=== PATIENT | male | born 1955 | race Caucasian/White ===

== ENCOUNTER 2017-11-21 06:25 | Inpatient (IN) | payer OTHER ==
[~2017-11-21] VITALS: Ht 188 cm; Wt 94.1 kg
--- NOTE | 2017-11-21 07:29 | ED GENERAL ADULT ---
History of Present Illness General Chief Complaint: Dyspnea (COPD, CHF, Other) Stated Complaint: DIFF BREATHING Source: patient Exam Limitations: no limitations Vital Signs & Intake/Output Vital Signs & Intake/Output Vital Signs Date Time Temp Pulse Resp B/P B/P Pulse O2 O2 Flow FiO2 Mean Ox Delivery Rate 11/21 0830 111 18 146/76 100 11/21 0640 99 Room Air Room Air 11/21 0538 98.2 127 28 150/74 99 Room Air Room Air Allergies Coded Allergies: No Known Allergies (11/21/17) Triage Note: 62YO MALE TO EWING A VIA AMB FROM HOME W/CO DIFF BREATHING X 2 WEEKS THAT'S WORSE THIS AM. NO WHEEZING PRESENT, RA SAT =99. STATES HE "DID NOT TAKE ANY MEDS FOR IT BECAUSE HE HAS HX KIDNEY FAILURE" Triage Nurses Notes Reviewed? yes Onset: Abrupt Duration: day(s): Timing: recent history HPI: 11/21/17 7:35 AM 62-year-old male presents to the emergency department complaining of difficulty breathing. He says he's had shortness of breath over the past several days. He says he gets winded now when he goes up the stairs. He has a past medical history of renal failure, 4 years ago that resolved. He denies any chest pain fever or cough. Past History Travel History Traveled to [place] past 21 day No Medical History Any Pertinent Medical History? 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 No Review of Systems Review of Systems Constitutional: Reports: no symptoms. Denies: fever. EENTM: Reports: no symptoms. Respiratory: Reports: short of breath. Cardiovascular: Denies: chest pain. GI: Denies: abdominal pain. Genitourinary: Reports: no symptoms. Musculoskeletal: Reports: no symptoms. Skin: Reports: no symptoms. Neurological/Psychological: Reports: no symptoms. Hematologic/Endocrine: Reports: no symptoms. Immunologic/Allergic: Reports: no symptoms. Physical Exam Physical Exam General Appearance: alert, awake, anxious, mild distress Head: atraumatic, normal appearance Eyes: Bilateral: normal appearance, PERRL, EOMI. Ears, Nose, Throat: normal pharynx, normal ENT inspection Neck: normal inspection, supple Respiratory: TACHYCARDIA Cardiovascular: regular rate/rhythm Peripheral Pulses: 4+ radial (R), 4+ radial (L) Gastrointestinal: soft, non-tender Back: normal range of motion Extremities: no edema Neurologic/Psych: no motor/sensory deficits, awake, alert, oriented x 3 Skin: intact, normal color, warm/dry Core Measures ACS in differential dx? No CVA/TIA Diagnosis: No Sepsis Present: No Sepsis Focused Exam Completed? No Progress Differential Diagnoses I considered the following diagnoses in my evaluation of the patient: [Pneumonia , pulmonary embolism, renal failure] Plan of Care: Orders Procedure Date/time Status Heart Healthy Diet 11/21 L Active US-RENAL/KIDNEY 11/21 954 Active Murillo, Insertion/Removal/Asses 11/21 954 Active CULTURE,URINE 11/21 954 Active ED Holding Orders 11/21 952 Active Admit to inpatient 11/21 952 Active Vital Signs 11/21 0953 Active TROPONIN LEVEL 11/21 733 Complete D-DIMER 11/21 733 Complete COMPREHENSIVE METABOLIC PANEL 11/21 733 Complete CBC WITHOUT DIFFERENTIAL 11/21 733 Complete B-TYPE NATRIURETIC PEP (BNP) 11/21 0634 Complete EKG 11/21 733 Active Current Medications Sig/James Start time Last Medication Dose Stop Time Status Admin Sodium Chloride 1,000 ML BOLUS ONE 11/21 1000 AC (Normal Saline 0.9%) 11/21 1059 Laboratory Tests 11/21/17 0819: Anion Gap 28.56404 H, Estimated GFR 2 L, BUN/Creatinine Ratio 9.6, Glucose 123 H, Calcium 5.6 *L, Total Bilirubin 0.4, AST 15 L, ALT 17 L, Alkaline Phosphatase 81, Troponin I 0.01, Lmc-B-Mnclleliqdj Pept 97720 H, Total Protein 7.4, Albumin 4.2, Globulin 3.2, Albumin/Globulin Ratio 1.3, D-Dimer High Sensitivty 518 H, CBC w Diff NO MAN DIFF REQ, RBC 2.71 L, MCV 88.5, MCH 30.0, MCHC 33.9, RDW 14.9 H, MPV 8.9, Gran % 81.9 H, Lymphocytes % 7.3 L, Monocytes % 9.5 H, Eosinophils % 0.1, Basophils % 1.2, Absolute Granulocytes 6.5, Absolute Lymphocytes 0.6 L, Absolute Monocytes 0.7 H, Absolute Eosinophils 0, Absolute Basophils 0.1 Microbiology 11/21 954 URINE ROUT: Urine Culture - ORD Initial ED EKG: nonspecific ST T wave chg (SINUS TACHYCARDIA) Departure Departure Disposition: STILL A PATIENT Condition: Stable Clinical Impression Primary Impression: CINDI (acute kidney injury) Referrals: Patient Has No Primary Care Dr (PCP/Family) Departure Forms: Customer Survey General Discharge Information Admission Note Documentation of Exam: Documentation of any treatments & extenuating circumstances including Concerns Regarding Discharge (functional status, medication knowledge or non-compliance, living conditions, etc.) that warrant an admission rather than observation: [The patient needs admission for IV fluids, Murillo catheter, strict I&O, serial electrolytes, nephrology consultation possible dialysis. I paged nephrology.] Critical Care Note Critical Care Note Critical Care Time: non-applicable
--- NOTE | 2017-11-21 08:08 | RADIOLOGY REPORT ---
EXAMINATION: XR CHEST CLINICAL INFORMATION: Shortness of breath COMPARISON: None TECHNIQUE: 2 views of the chest were obtained. FINDINGS: Cardiomediastinal silhouette is within normal limits. Minor streaky infiltrate or atelectasis noted in the left base. Linear atelectatic changes right mid lung. Bony thorax is intact. Degenerative changes of the thoracic spine. IMPRESSION: Streaky atelectasis or less likely minor infiltrate noted in the left base. Linear atelectatic changes right mid to lower lung.
[2017-11-21 08:26] LABS: ABSOLUTE BASOPHIL COUNT 0.1 /CUMM (0.0-0.2); ABSOLUTE EOSINOPHIL COUNT 0 /CUMM (0.0-0.7); ABSOLUTE GRANULOCYTE CT 6.5 /CUMM (1.4-6.5); ABSOLUTE LYMPH COUNT 0.6 /CUMM (1.2-3.4); ABSOLUTE MONOCYTE COUNT 0.7 /CUMM (0.10-0.60); BASOPHIL % 1.2 % (0.0-2.0); EOSINOPHIL % 0.1 % (0-5); GRANULOCYTE % 81.9 % (42.2-75.2); MEAN CORPUSCULAR HGB CONC 33.9 G/DL (33.0-37.0); MEAN CORPUSCULAR VOLUME 88.5 FL (80.0-94.0); MEAN PLATELET VOLUME 8.9 FL (7.4-10.4); PLATELET COUNT 155 /CUMM (130-400); RBC DISTRIBUTION WIDTH 14.9 % (11.5-14.5); RED BLOOD CELL CT 2.71 /CUMM (4.70-6.10); WHITE BLOOD CELL COUNT 7.9 /CUMM (4.8-10.8)
[2017-11-21 11:31] VITALS: BP 120/60
--- NOTE | 2017-11-21 13:25 | History & Physical ---
AlvinMarco Antonio 11/21/17 1322: General Information and HPI MD Statement: I have seen and personally examined UNIQUE YOUNGBLOOD and documented this H&P. The patient is a 62 year old M who presented with a patient stated chief complaint of shortness of breath. Source of Information: patient Exam Limitations: no limitations History of Present Illness: 62-year-old gentleman with history of? Prostate surgery 3 years ago, history of seizures 4 years ago-admitted at [facility] found to have acute renal failure,? Started on Depakote at the time, followed up with primary care physician who discontinued the Depakote after a few months of use, lost to follow-up after that, with no follow-up with primary care physician, post acute care registered nurse or any other doctors presents to [facility] ED on 11/21/2017 after having 2 week history of "head cold", and was noticed by his roommates to be "losing his color". He started expressing shortness of breath timing up the flight of stairs yesterday and could not sleep well overnight and this is what prompted him to call ambulance and come to the ED. he denies any fevers or chills. He denies any recent urinary or GI symptoms. He denies any recent travel. He denies any use of fjcp-gzj-jdrikdh Advil, Aleve or any other medications. He denies any use of herbal medications. He endorses to very low appetite over the last 2 weeks. He denies any weight loss or weight gain. He denies any IV drug abuse. He smokes 2-5 cigarettes a day, occasionally drinks alcohol and has used recreational drugs (not IVDU) in 1970s. He has no information about his previous counts, his previous hepatitis status or HIV status. He denies any chest pain, palpitations or any signs of anasarca. He denies any orthopnea or PND. He continues to ambulate by himself and has not required any walker or cane. He denies any previous history of clots in lungs or legs. He is unsure of his family history, but does admit that her mother of lung cancer 13 years ago and his sister has diabetes. 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 Additionally he comes of dull achy pain in his lower back, which comes and goes. No radiation to the pain, no incontinence. No recent seizure-like activity. In the ED, patient had lab work done which revealed a BUN/creatinine of 202/22. He was also found to be anemic. 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 Exam & Diagnostic Data Last 24 Hrs of Vital Signs/I&O Vital Signs Date Time Temp Pulse Resp B/P B/P Pulse O2 O2 Flow FiO2 Mean Ox Delivery Rate 11/21 1131 97.5 109 24 120/60 100 /07 0930 111 18 146/76 100 /07 0640 99 Room Air Room Air 11/21 0638 98.2 127 28 150/74 99 Room Air Room Air Intake & Output 11/21 1600 / 0800 06 0000 Intake Total 1240 Output Total Balance 1240 Intake, IV 1000 Intake, Oral 240 Patient 189 lb Weight Physical Exam General Appearance Alert, Oriented X3, Cooperative, No Acute Distress Sepsis Skin Exam (color): Normal for Ethnicity, Cyanotic HEENT Atraumatic, PERRLA, EOMI Neck Supple, No JVD Cardiovascular Regular Rate, Normal S1, Normal S2 Lungs Clear to Auscultation, Normal Air Movement Abdomen Normal Bowel Sounds, Soft, No Tenderness Neurological Normal Gait, Normal Speech, Strength at 5/5 X4 Ext Extremities No Clubbing, No Cyanosis, No Edema Last 24 Hrs of Labs/Jerrod: Laboratory Tests 11/21/17 1250: Sodium Cancelled, Potassium Cancelled, Chloride Cancelled, Carbon Dioxide Cancelled, Anion Gap Cancelled, BUN Cancelled, Creatinine Cancelled, BUN/ Creatinine Ratio Cancelled 06/07/18 0819: Anion Gap 28.67580 H, Estimated GFR 2 L, BUN/Creatinine Ratio 9.6, Glucose 123 H, Calcium 5.6 *L, Total Bilirubin 0.4, AST 15 L, ALT 17 L, Alkaline Phosphatase 81, Troponin I 0.01, Bpl-P-Uxxnwvwzjbd Pept 91346 H, Total Protein 7.4, Albumin 4.2, Globulin 3.2, Albumin/Globulin Ratio 1.3, D-Dimer High Sensitivty 518 H, CBC w Diff NO MAN DIFF REQ, RBC 2.71 L, MCV 88.5, MCH 30.0, MCHC 33.9, RDW 14.9 H, MPV 8.9, Gran % 81.9 H, Lymphocytes % 7.3 L, Monocytes % 9.5 H, Eosinophils % 0.1, Basophils % 1.2, Absolute Granulocytes 6.5, Absolute Lymphocytes 0.6 L, Absolute Monocytes 0.7 H, Absolute Eosinophils 0, Absolute Basophils 0.1 Microbiology 11/21 0955 URINE ROUT: Urine Culture - ORD Diagnostic Data EKG Results Sinus Tachy. CXR Results IMPRESSION: Streaky atelectasis or less likely minor infiltrate noted in the left base. Linear atelectatic changes right mid to lower lung. Assessment/Plan Assessment: 62-year-old gentleman with 2 week history of generalized fatigue, upper respiratory symptoms, "looking pale" and an episode of shortness of breath last night that prompted him to come to the ED presents to the ED with creatinine of 22 and severe anion gap metabolic acidosis with component of severe organic acidosis in the setting of severe renal failure. History of obstructive uropathy requiring "prostate" surgery in 2013 with subsequent placement of Hall catheter for 6 months, lost to follow-up after that. Has failed to maintain follow-ups with the post acute care registered nurse Dr. Amado of [facility], never been on dialysis. 1. Anion gap metabolic acidosis. Likely secondary from severe renal failure. Appreciate nephrology recommendations. Will start patient on bicarbonate drip. 2. Severe hypocalcemia. PTH intact checked, appropriately elevated. This degree of hypocalcemia is perhaps secondary to hyperphosphatemia as a result result of renal failure or excess tissue breakdown because of rhabdomyolysis or tumor lysis. Please check CK, uric acid. Again, may just falsely be elevated in this severe renal failure. Start phosphate binders. 3. Shortness of breath. Low risk for PE by Wells. His symptoms are likely secondary to severe anemia, likely in the setting of acute kidney injury on CKD. His low back pain in the setting of anemia and kidney dysfunction, worries me about the possibility of multiple myeloma, something to consider if his kidney dysfunction does not improve. 4. Metabolic derangements. All this is likely secondary to severe renal failure as mentioned above. But his derangements to go in line with TLS- hyperphosphatemia, hypocalcemia, hyperkalemia. May check uric acid. Low lactate argues against TLS. Another scenario that is a possibility, albeit a slight one, is acute uric acid nephropathy due to hyperuricosuria can be cause of acute kidney failure. At this point, obstructive uropathy is a major concern and urology has been consulted to do a cystoscopy-Hall. If kidney function does not improve, patient may need a Cosme/proline or some access for dialysis. At that point, other causes of nephrotic/nephritic syndrome can be worked up for. Obviously, avoid any nephrotoxic agents. Transfer to ICU. Please follow-up on renal ultrasound as well as CAT scan. Please follow-up on postop urology note. This patient needs to be carefully monitored for postobstructive diuresis. Would recommend checking ICU bundle every 6 hours for next 24 hours. Full code. Alps for DVT prophylaxis. N.p.o. for now, then renal dialysis diet. As Ranked By This Provider Problem List: 1. CINDI (acute kidney injury) Core Measures/Misc (03/03) Acute Coronary Syndrome ACS Diagnosis: No Congestive Heart Failure Congestive Heart Failure Diagnosis No Cerebrovascular Accident CVA/TIA Diagnosis: No VTE (View Protocol) VTE Risk Factors Acute Medical Illness No Mechanical VTE Prophylaxis d/t N/A MechProphylax Ordered No VTE Pharm Prophylaxis d/t Surgical Contraindication Sepsis (View protocol) Sepsis Present: No If YES complete Sepsis Event Note If YES complete Sepsis Event Note Julio Collado MD 11/21/17 6413: Core Measures/Misc (03/03) Sepsis (View protocol) If YES complete Sepsis Event Note If YES complete Sepsis Event Note Attending MD Review Statement Attending Statement Attending MD Statement: examined this patient, discuss w/resident/PA/TELECOM MANAGER, agreed w/resident/PA/TELECOM MANAGER, reviewed EMR data (avail), reviewed images, amended to note Attending Assessment/Plan: The patient is a 62 yo male with a h/o seizure disorder (?formerly on Depakote), h/o "prostate surgery" approximately 4 years ago ([facility]) who described having an indwelling hall for 6 months and had CINDI and required dialysis x 1 who presented in the ED with c/o dyspnea, weakness, [place] and was found to have a Cr of 22. He denied edema, fever and stated he was passing urine well. His bicarbonate was < 5. He was sent to the medical floor and subsequent bladder scan showed > 400 cc residual and he voided dark tea colored urine. He was seen by Nephrology (Dr. Alvarez) on the floor and recommended ICU monitoring as he will require bicarbonate drip and close monitoring of I/O's expecting post obstructive diuresis. He subsequently underwent a renal/blader US that showed severe right hydronephrosis and mild left hydronephrosis with presence of a right ureteral stent (patient was unaware ). Subsequent CT showed bilateral ureteral stents with moderate right and mild left hydronephrosis. Physical Exam: VS: T 97.5, P 127-109, R 28-24, BP 150/74-120/60, PO 99% RA HEENT: eyes- PERRLA, EOMI sandy- dry mucosa Neck: no JVD/bruits Chest: clear Cor: RR, sl tachy, nl S1, S2 w/o murm Abd: BS+, soft, NT, - masses Ext: no edema Neuro: alert & oriented (poor historian), non-focal exam Labs/Tests- as above. Impression/Plan: #Anion Gap Metabolic Acidosis- bicarb < 5, most c/w acute on chronic severe renal failure. Plan: As above, will transfer to ICU based on Nephrology consult. Add bicarb to IV fluids as per Nephro note and follow lytes closely. #Renal Failure- ?acute on chronic. No recent bloodwork. Had h/o obstructive uropathy and prior admission to [facility] in [place], [place]. Symptoms are rather acute. The patient has no medical insurance and thus had had no recent follow-up. As noted- bilateral ureteral stents are present which may have been in for several years. Plan: As above, admit to ICU and IV fluids as per Nephrology consult with Dr. Alvarez. Follow lytes closely in ICU. Dr. Burch to place hall cath in OR (prior attempts failed). Consider placement of tunnel cath for possible dialysis tomorrow. Obtain records from [place]. #Obstructive Uropathy- h/o bilateral ureteral stents and h/o prostate surgery. May consider blockage of right sten. Plan: Urology Consult- Dr. Burch. To OR today for placement of hall. #Anemia- may be related to chronic renal failure. No evidence of bleeding, except mild blood in urine. Plan: Follow-up H/H - consider bone marrow stimulation factor. #Dyspnea- may be related to CKD/anemia. Plan: Will follow pulse ox. #Hypocalcemia- ?secondary to hyperphosphatemia. Plan: PTH checked (appropriate), Will check CK (?rhabdo). Replete. The patient will most likely need dialysis tomorrow.
--- NOTE | 2017-11-21 14:44 | Cons- Nephrology ---
General Information and HPI Consulting Request Date of Consult: 11/21/17 Requested By: John THOMAS,Dia Reason for Consult: renal failure, metabolic acidosis Source of Information: patient Exam Limitations: poor historian History of Present Illness: 62 yo male h/o BPH s/p green light laser surgery ~4 years ago with h/o obstructive uropathy in past (hospitalized at [facility] in [facility]) with CINDI requring HD x1, with requiring indwelling hall cath x6 months several years ago, who has not seen an MD in several years. He comes into the ER now with several weaks of fatigue, OATES (cxray only possible atectasis), nausea, intermittent vomiting, and found to have a creatininine of 22 mg/dl, with severe acidosis and bicarb of <5, witih anion gap >28. Was sent to the medical floor and a consult came into me for CINDI. I had RN check a bladder scan, which was > 400 cc. Hall cath attempted and not succesful as met with resistance. Pt subsequently voided once about 300 cc of dark blood tinged tea colored urine. Pt denies nsaids, iv contrast, and is on no medicatons. Denies ETOH or any ilicit drugs. Was not hypotensive in ER. Allergies/Medications Allergies: Coded Allergies: No Known Allergies (11/21/17) Current Medications: Current Medications Sig/James Start time Last Medication Dose Route Stop Time Status Admin Sodium Chloride 1,000 ML BOLUS ONE 11/21 1000 DC 11/21 IV 11/21 1059 1013 Review of Systems Review of Systems: gen: no fever/chills skin: No rash/pruritis renal: +poor taste, +loss of appetite cv: No CP. +OATES pulm: no cough/congestion abd: +nausea/vomiting. no diarrhea. no abd pain heme: no easy bleeding/clotting urol: +h/o BPH, h/o hall cath x6M in past. 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 Surgical History Surgical History: non-contributory Family History Relations & Conditions If Any: MOTHER Relation not specified for: FH: lung cancer Psychosocial History Smoking Status: Current Everyday Smoker ETOH Use: occasional use Illicit Drug Use: denies illicit drug use Functional Ability Ambulation: independent Exam & Diagnostic Data Vital Signs and I&O Vital Signs Date Time Temp Pulse Resp B/P B/P Pulse O2 O2 Flow FiO2 Mean Ox Delivery Rate 11/21 1131 97.5 109 24 120/60 100 11/21 0930 111 18 146/76 100 11/21 0640 99 Room Air Room Air 11/21 0638 98.2 127 28 150/74 99 Room Air Room Air Intake & Output 11/21 1600 11/21 0400 11/20 1600 11/20 0400 11/19 1600 11/19 0400 Intake Total 1240 Output Total Balance 1240 Intake, IV 1000 Intake, Oral 240 Patient 189 lb Weight Physical Exam: NAD A+O x3 neck: no JVD HEENT: oral mucosa is moist S1 S2 abd: soft NT some suprapubic distension bladder scan >400 cc CTAB no edema no asterixis, focal deficits skin: no rash Results Pertinent Lab Results: Laboratory Tests 11/21 11/21 1250 0819 Chemistry Sodium (137 - 145 mmol/L) Cancelled 141 Potassium (3.5 - 5.1 mmol/L) Cancelled 5.4 H Chloride (98 - 107 mmol/L) Cancelled 108 H Carbon Dioxide (22 - 30 mmol/L) Cancelled < 5 *L Anion Gap (5 - 16) Cancelled 28.79069 H BUN (9 - 20 mg/dL) Cancelled 212 *H Creatinine (0.7 - 1.2 mg/dL) Cancelled 22.0 *H Estimated GFR (>60 ml/min) 2 L BUN/Creatinine Ratio (7 - 25 %) Cancelled 9.6 Glucose (65 - 99 mg/dL) 123 H Calcium (8.4 - 10.2 mg/dL) 5.6 *L Phosphorus (2.5 - 4.5 mg/dL) Pending Magnesium (1.6 - 2.3 mg/dL) Pending Total Bilirubin (0.2 - 1.3 mg/dL) 0.4 AST (17 - 59 U/L) 15 L ALT (21 - 72 U/L) 17 L Alkaline Phosphatase (< 127 U/L) 81 Troponin I (<0.11 ng/ml) 0.01 Nps-J-Urdfeivabdi Pept (<125 pg/mL) 53318 H Total Protein (6.3 - 8.2 g/dL) 7.4 Albumin (3.5 - 5.0 g/dL) 4.2 Globulin (1.9 - 4.2 gm/dL) 3.2 Albumin/Globulin Ratio (1.1 - 2.2 %) 1.3 TSH (0.270 - 4.200 uIU/mL) Pending PTH Intact (18.4 - 80.1 pg/ML) Pending Coagulation D-Dimer High Sensitivty (0 - 243 ng/ml) 518 H Hematology CBC w Diff NO MAN DIFF REQ WBC (4.8 - 10.8 /CUMM) 7.9 RBC (4.70 - 6.10 /CUMM) 2.71 L Hgb (14.0 - 18.0 G/DL) 8.1 L Hct (42 - 52 %) 24.0 L MCV (80.0 - 94.0 FL) 88.5 MCH (27.0 - 31.0 PG) 30.0 MCHC (33.0 - 37.0 G/DL) 33.9 RDW (11.5 - 14.5 %) 14.9 H Plt Count (130 - 400 /CUMM) 155 MPV (7.4 - 10.4 FL) 8.9 Gran % (42.2 - 75.2 %) 81.9 H Lymphocytes % (20.5 - 51.1 %) 7.3 L Monocytes % (1.7 - 9.3 %) 9.5 H Eosinophils % (0 - 5 %) 0.1 Basophils % (0.0 - 2.0 %) 1.2 Absolute Granulocytes (1.4 - 6.5 /CUMM) 6.5 Absolute Lymphocytes (1.2 - 3.4 /CUMM) 0.6 L Absolute Monocytes (0.10 - 0.60 /CUMM) 0.7 H Absolute Eosinophils (0.0 - 0.7 /CUMM) 0 Absolute Basophils (0.0 - 0.2 /CUMM) 0.1 Assessment/Plan Assessment/Recommendations Assessment: Severe renal failure: Likely an element of acute and chronic renal failure. Cause of renal failure I suspect is due to obstructive uropathy. Renal US & abd CT currently underway. Stat consult placed to Urology, Dr Burch who promptly is arranging for urological intervention. If imaging is negative for hydronephrosis then urgent dialysis would be warranted for uremia with met acidosis, as in which case intrinsic renal disease may be culprit (ie ATN, chronic interstitial disease, etc) & further workup would be warranted. Metabolic acidosis (elevate anion gap): Suspect from renal failure. Start bicarbonate gtt with D5W + 150 meq/L at 125 cc/hr for now. BMM: hypocalcemia, hyperphos, secondary hyperpara. Will need calcium based phosphate binders (ie calcium acetate) soon. Avoid calcitriol for now given hyperphos. Recommendations: Stat urology consult placed start bicarb gtt at 125 cc/hr as above ICU transfer Hep B panel, PT/INR, Lactic acid, ABG f/up renal US & CT: If no hydro then would need dilip cath & HD. If hydro then urological intervention only for now serial chemistries monitored for post-obstructive diuresis NPO for now; once taking PO start calcium acetate 667 mg 4 tabs po TID with meals D/w ICU team, medical team, Urology, patient. Thank you for the consult Quinten Alvarez MD
[2017-11-21 14:46] LABS: PT 12.4 SEC (9.4-12.5); PTT 35 SEC (25-37)
--- NOTE | 2017-11-21 15:17 | Event Note ---
Event Note Event Note: Discussed with the Quinten Alvarez MD and according to him patient is having severe acidosis, bicarbonate less than 5, so he may need ICU transfer and possible dialysis in the future. I updated Dr. Courtney. We did tell the ultrasound together which showed there is right-sided hydronephrosis and bilateral renal stent. We did discuss with Dr. Burch who is going to do catheterization and possible stent removal. Advised - * Please continue patient on sodium bicarb drip 150 cc/h. * Keep patient n.p.o. for possible removal of the stent and Cosme catheter needed in the future. * After catheterization there is a possibility of postobstructive diuresis and patient may went into hyponatremia. If patient developed hyponatremia and then please start patient on D5W with 75 mEq of sodium bicarb -75 cc/h. * Please supplement IV fluid equivalent to the urine output. * If patient's her bicarb level become > 16 done start patient on D5 half normal saline. * Repeat CMP every 4 hourly. * Please report Dr. Alvarez about the next blood workup, for making decision regarding dialysis. * Strict intake output charting * Avoid DVT prophylaxis with heparin as patient is having hematuria, and he may need possible Cosme catheter tomorrow * Dr. Cruz will be on from tomorrow, please call him if dialysis is needed.
--- NOTE | 2017-11-21 15:28 | ULTRASOUND REPORT ---
EXAMINATION: US RETROPERITONEAL COMPLETE (RENAL) CLINICAL INFORMATION: Renal failure. COMPARISON: None TECHNIQUE: Real-time imaging of the kidneys and bladder. FINDINGS: RIGHT KIDNEY: 10.5 x 4.7 x 6.2 cm (SAG x AP x TRV). The kidney is normal in size, contour, and echogenicity. Renal cortical thickness is normal. No renal calculi or focal parenchymal lesions. There is moderate right-sided hydronephrosis. Stent is partially visualized.. LEFT KIDNEY: 10 x 4.7 x 4.9 cm (SAG x AP x TRV). Mild increased echogenicity. Renal cortical thickness is normal. Mild Left-sided hydronephrosis. Stent is partly visualized BLADDER: Incompletely distended. Stents. ADDITIONAL FINDINGS: Cholelithiasis. IMPRESSION: 1. Bilateral hydronephrosis, right greater than left. 2. Bilateral stents are partially visualized. Incidental note is made of gallstones.
--- NOTE | 2017-11-21 16:05 | CT SCAN REPORT ---
EXAMINATION: CT ABDOMEN AND PELVIS WITHOUT CONTRAST CLINICAL INFORMATION: Acute renal failure. Evaluate for obstruction. COMPARISON: None TECHNIQUE: Multidetector volumetric imaging was performed from the superior aspect of the liver through the pubic symphysis. Sagittal and coronal reformatted images were obtained on the technologist's workstation. DLP: 580.93 mGy-cm FINDINGS: LUNG BASES: Partially visualized cystic structure right lower lobe may represent a pneumatocele. LIVER, GALLBLADDER, AND BILIARY TREE: The liver is normal in size, shape, and attenuation. No focal hepatic lesion or biliary ductal dilatation is present. Gallstone noted near the junction of gallbladder neck. No evidence of gallbladder wall thickening or pericholecystic fluid. No biliary ductal dilatation. PANCREAS: Unremarkable. SPLEEN: Unremarkable. ADRENAL GLANDS: Prominent low-attenuation bilateral adrenal glands maintaining normal shape most likely representing adrenal hyperplasia. KIDNEYS AND URETERS: Moderate right hydronephrosis with significant distention of the right renal pelvis. Renal pelvic and proximal right periureteric stranding. Mild perinephric stranding. Right-sided double-J stent with upper end of the pigtail in the right renal pelvis and the lower and within the urinary bladder. Mild fullness of the left collecting system. Stranding surrounding the left renal pelvis and left ureter. Mild perinephric stranding Left-sided ureteric stent. Asymmetric smaller left kidney. BLADDER: Mildly thick-walled urinary bladder. Air in the bladder may represent iatrogenic change if there has been recent instrumentation or Murillo catheter placement. GASTROINTESTINAL TRACT: No acute bowel pathology. Nondistended bowel loops. ABDOMINAL WALL: No significant hernia is appreciated. LYMPH NODES: Small mesenteric and periaortic lymph nodes. Slightly larger lymph node noted in the precaval location measuring approximately 1.4 cm in short axis (series 2 image 27) VASCULAR: Atherosclerotic disease of the aorta. PELVIC VISCERA: Calcification of the prostate gland. Mild prominence of the gland.. OSSEOUS STRUCTURES: Degenerative changes noted at multiple endplates of the lower thoracic and no acute osseous abnormality. Lumbar spine. Schmorl's nodes. IMPRESSION: 1. Bilateral ureteric stents in place. Moderate right and mild left hydronephrosis. Bilateral stranding surrounding the collecting systems and kidneys. Correlate clinically for bilateral ureteral pyelitis. 2. Mildly thick-walled urinary bladder. Cystitis cannot be excluded.
--- NOTE | 2017-11-21 18:15 | Cons- Urology ---
General Information and HPI Consulting Request Date of Consult: 11/21/17 Requested By: Dia Lopez MD Reason for Consult: AFR:bilateral hydro with non-functioning stents. Difficult hall insertion. Source of Information: patient, old records Exam Limitations: no limitations History of Present Illness: Pt in ER with overall weakness and symptoms of retention: hall could not be placed in ER; labs reveal severe acidosis, renal failure. 62-year-old gentleman with history of? Prostate surgery 3 years ago, history of seizures 4 years ago-admitted at [facility], [place] found to have acute renal failure,? Started on Depakote at the time, followed up with primary care physician who discontinued the Depakote after a few months of use, lost to follow-up after that, with no follow-up with primary care physician, atomic spectroscopist or any other doctors presents to [facility] ED on 11/21/2017 after having 2 week history of "head cold", and was noticed by his roommates to be "losing his color". He started expressing shortness of breath timing up the flight of stairs yesterday and could not sleep well overnight and this is what prompted him to call ambulance and come to the ED. he denies any fevers or chills. He denies any recent urinary or GI symptoms. He denies any recent travel. He denies any use of suyc-gqs-jjkhcka Advil, Aleve or any other medications. He denies any use of herbal medications. He endorses to very low appetite over the last 2 weeks. He denies any weight loss or weight gain. He denies any IV drug abuse. He smokes 2-5 cigarettes a day, occasionally drinks alcohol and has used recreational drugs (not IVDU) in 1970s. He has no information about his previous counts, his previous hepatitis status or HIV status. Allergies/Medications Allergies: Coded Allergies: No Known Allergies (11/21/17) Current Medications: Current Medications Sig/James Start time Last Medication Dose Route Stop Time Status Admin Sodium Bicarbonate 150 MEQ Q6H 11/21 1500 AC 11/21 Dextrose/Water 850 ML IV 1528 Sodium Chloride 1,000 ML BOLUS ONE 11/21 1000 DC 11/21 IV 11/21 1059 1013 Past History Medical History Neurological: NONE EENT: NONE Cardiovascular: NONE Respiratory: NONE Gastrointestinal: NONE Hepatic: NONE Renal: chronic kidney disease Musculoskeletal: NONE Psychiatric: NONE Endocrine: NONE Blood Disorders: NONE Cancer(s): NONE 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 Home Who Do You Live With? spouse Smoking Status: Current Everyday Smoker ETOH Use: occasional use Illicit Drug Use: denies illicit drug use Functional Ability ADLs Independent: dressing, eating, toileting, bathing. Ambulation: independent IADLs Independent: shopping, housework, finances, food prep, telephone, transportation , medication admin. Employment History Retired? unknown Review of Systems Review of Systems Constitutional: Reports: diaphoresis, weakness. EENTM: Denies: no symptoms. Cardiovascular: Denies: no symptoms. Respiratory: Denies: no symptoms. GI: Reports: abdominal pain, bloating. Genitourinary: Reports: dysuria, hematuria. Skin: Denies: no symptoms. Exam & Diagnostic Data Vital Signs and I&O Vital Signs Date Time Temp Pulse Resp B/P B/P Pulse O2 O2 Flow FiO2 Mean Ox Delivery Rate 11/21 1131 97.5 109 24 120/60 100 / 1100 94 Nasal 2.0L Cannula 11/21 0930 111 18 146/76 100 / 0640 99 Room Air Room Air 11/21 0638 98.2 127 28 150/74 99 Room Air Room Air Intake & Output 11/21 1600 11/21 0800 / 0000 11/20 1600 11/20 0800 06/ 0000 Intake Total 1640 Output Total 350 Balance 1290 Intake, IV 1400 Intake, Oral 240 Output, Urine 350 Patient 180 lb 189 lb Weight Weight Reported by Patient Measurement Method Physical Exam General Appearance: well developed/nourished, mild distress Head: atraumatic Eyes: Bilateral: normal appearance. Neck: normal inspection, supple Respiratory: normal breath sounds Cardiovascular: tachycardia Gastrointestinal: normal bowel sounds, soft Rectal: 30gm prostate-smooth Back: no vertebral tenderness Extremities: normal inspection Skin: intact Reproductive: Normal male genitalia Last 24 Hours of Labs: Laboratory Tests 11/21 11/21 11/21 1630 1415 1300 Immunology ALEXX Titer Cancelled Anti-Nuclear Antibody Cancelled Toxicology Methadone Screen (>300 NG/ML) Pending Barbiturate Screen (>200 NG/ML) Pending Ur Phencyclidine Scrn (>25 NG/ML) Pending Amphetamines Screen (>1000 NG/ML) Pending U Benzodiazepines Scrn (>200 NG/ML) Pending Urine Cocaine Screen (>300 NG/ML) Pending Urine Cannabis Screen (>50 NG/ML) Pending Urines Urine Color (YEL,AMB,STR) BLDY H Urine Clarity (CLEAR) CLDY H Urine pH (5.0 - 8.0) 6.0 Ur Specific [place] (1.001 - 1.035) 1.020 Urine Protein (NEG,<30 MG/DL) >=300 H Urine Ketones (NEG) NEG Urine Nitrite (NEG) POS H Urine Bilirubin (NEG) NEG@ICTO Urine Urobilinogen (0.1 - 1.0 EU/dl) 0.2 Ur Leukocyte Esterase (NEG) LARGE H Ur Microscopic SEDIMENT EXAMINED Urine RBC (0 - 5 /HPF) >75 H Urine WBC (0 - 2 /HPF) > 75 H Ur Epithelial Cells (NONE,FEW) RARE Urine Bacteria (NEG/NONE) MANY H Urine Hemoglobin (NEG) LARGE H Ur Random Creatinine (mg/dL) Pending Cancelled U Random Total Protein (0 - 12 mg/dL) Pending Ur Random Sodium (30 - 90 mmol/L) Pending Cancelled Ur Random Potassium (mmol/L) Pending Cancelled Urine Total Volume Cancelled Ur Total Protein 24 Hr Cancelled Fraction Sodium Excret (<1% %) Pending Cancelled Urine Glucose (N MG/DL) NEG 11/21 11/21 11/21 1255 1250 0819 Chemistry Sodium (137 - 145 mmol/L) Cancelled Cancelled 141 Potassium (3.5 - 5.1 mmol/L) Cancelled Cancelled 5.4 H Chloride (98 - 107 mmol/L) Cancelled Cancelled 108 H Carbon Dioxide (22 - 30 mmol/L) Cancelled Cancelled < 5 *L Anion Gap (5 - 16) Cancelled Cancelled 28.17715 H BUN (9 - 20 mg/dL) Cancelled Cancelled 212 *H Creatinine (0.7 - 1.2 mg/dL) Cancelled Cancelled 22.0 *H Estimated GFR (>60 ml/min) 2 L BUN/Creatinine Ratio (7 - 25 %) Cancelled Cancelled 9.6 Glucose (65 - 99 mg/dL) 123 H Calcium (8.4 - 10.2 mg/dL) 5.6 *L Phosphorus (2.5 - 4.5 mg/dL) 11.8 H Magnesium (1.6 - 2.3 mg/dL) 1.6 Total Bilirubin (0.2 - 1.3 mg/dL) 0.4 AST (17 - 59 U/L) 15 L ALT (21 - 72 U/L) 17 L Alkaline Phosphatase (< 127 U/L) 81 Troponin I (<0.11 ng/ml) 0.01 Mpb-[id number]-Phhbhhshgkq Pept (<125 pg/mL) 85611 H Total Protein (6.3 - 8.2 g/dL) 7.4 Albumin (3.5 - 5.0 g/dL) 4.2 Globulin (1.9 - 4.2 gm/dL) 3.2 Albumin/Globulin Ratio (1.1 - 2.2 %) 1.3 TSH (0.270 - 4.200 uIU/mL) 0.800 PTH Intact (18.4 - 80.1 pg/ML) 1446.4 H Coagulation PT (9.4 - 12.5 SEC) 12.4 INR (0.90 - 1.17) 1.14 APTT (25 - 37 SEC) 35 D-Dimer High Sensitivty (0 - 243 ng/ml) 518 H Hematology CBC w Diff NO MAN DIFF REQ WBC (4.8 - 10.8 /CUMM) 7.9 RBC (4.70 - 6.10 /CUMM) 2.71 L Hgb (14.0 - 18.0 G/DL) 8.1 L Hct (42 - 52 %) 24.0 L MCV (80.0 - 94.0 FL) 88.5 MCH (27.0 - 31.0 PG) 30.0 MCHC (33.0 - 37.0 G/DL) 33.9 RDW (11.5 - 14.5 %) 14.9 H Plt Count (130 - 400 /CUMM) 155 MPV (7.4 - 10.4 FL) 8.9 Gran % (42.2 - 75.2 %) 81.9 H Lymphocytes % (20.5 - 51.1 %) 7.3 L Monocytes % (1.7 - 9.3 %) 9.5 H Eosinophils % (0 - 5 %) 0.1 Basophils % (0.0 - 2.0 %) 1.2 Absolute Granulocytes (1.4 - 6.5 /CUMM) 6.5 Absolute Lymphocytes (1.2 - 3.4 /CUMM) 0.6 L Absolute Monocytes (0.10 - 0.60 /CUMM) 0.7 H Absolute Eosinophils (0.0 - 0.7 /CUMM) 0 Absolute Basophils (0.0 - 0.2 /CUMM) 0.1 Serology Hepatitis A IgM Ab (NONREACTIVE) NONREACTIVE Hep Bs Antigen (NONREACTIVE) NONREACTIVE Hep B Core IgM Ab Conf (NONREACTIVE) NONREACTIVE Hepatitis C Antibody (NONREACTIVE) NONREACTIVE 11/21 813 Chemistry Lactic Acid (0.7 - 2.1 mmol/L) 0.6 L Imaging Results: PATIENT: UNIQUE YOUNGBLOOD PRESENT AGE: 62 PATIENT ACCOUNT NO: [id number] : 56 LOCATION: [place] ORDERING PHYSICIAN: Marco Antonio Esqiuvel MD SERVICE DATE: 11/21/17- EXAM TYPE: CAT - CT ABD & PELVIS W/O IV CONTRAS EXAMINATION: CT ABDOMEN AND PELVIS WITHOUT CONTRAST CLINICAL INFORMATION: Acute renal failure. Evaluate for obstruction. COMPARISON: None TECHNIQUE: Multidetector volumetric imaging was performed from the superior aspect of the liver through the pubic symphysis. Sagittal and coronal reformatted images were obtained on the technologist's workstation. DLP: 580.93 mGy-cm FINDINGS: LUNG BASES: Partially visualized cystic structure right lower lobe may represent a pneumatocele. LIVER, GALLBLADDER, AND BILIARY TREE: The liver is normal in size, shape, and attenuation. No focal hepatic lesion or biliary ductal dilatation is present. Gallstone noted near the junction of gallbladder neck. No evidence of gallbladder wall thickening or pericholecystic fluid. No biliary ductal dilatation. PANCREAS: Unremarkable. SPLEEN: Unremarkable. ADRENAL GLANDS: Prominent low-attenuation bilateral adrenal glands maintaining normal shape most likely representing adrenal hyperplasia. KIDNEYS AND URETERS: Moderate right hydronephrosis with significant distention of the right renal pelvis. Renal pelvic and proximal right periureteric stranding. Mild perinephric stranding. Right-sided double-J stent with upper end of the pigtail in the right renal pelvis and the lower and within the urinary bladder. Mild fullness of the left collecting system. Stranding surrounding the left renal pelvis and left ureter. Mild perinephric stranding Left-sided ureteric stent. Asymmetric smaller left kidney. BLADDER: Mildly thick-walled urinary bladder. Air in the bladder may represent iatrogenic change if there has been recent instrumentation or Hall catheter placement. GASTROINTESTINAL TRACT: No acute bowel pathology. Nondistended bowel loops. ABDOMINAL WALL: No significant hernia is appreciated. LYMPH NODES: Small mesenteric and periaortic lymph nodes. Slightly larger lymph node noted in the precaval location measuring approximately 1.4 cm in short axis (series 2 image 27) VASCULAR: Atherosclerotic disease of the aorta. PELVIC VISCERA: Calcification of the prostate gland. Mild prominence of the gland.. OSSEOUS STRUCTURES: Degenerative changes noted at multiple endplates of the lower thoracic and no acute osseous abnormality. Lumbar spine. Schmorl's nodes. IMPRESSION: 1. Bilateral ureteric stents in place. Moderate right and mild left hydronephrosis. Bilateral stranding surrounding the collecting systems and kidneys. Correlate clinically for bilateral ureteral pyelitis. 2. Mildly thick-walled urinary bladder. Cystitis cannot be excluded. DICTATED BY: Clement Melgar MD DATE/TIME DICTATED:11/21/171531 HEAT TREAT FURNACE OPERATOR:DEISY DATE/TIME TRANSCRIBED:11/21/171531 CONFIDENTIAL, DO NOT COPY WITHOUT APPROPRIATE AUTHORIZATION. <Electronically signed in Other Vendor System> SIGNED BY: Clement Melgar MD 11/21/17 2813 Assessment/Plan Assessment/Plan ARF with bilat. stents and hydro: need cysto bilat. stent change, hall, now Copies To: Eben Burch MD Consult Acknowledgment - Thank you for your consult request. Attending MD Review Statement Attending Statement Attending Statement: examined this patient, discuss w/resident/PA/CUT OFF SAW OPERATOR Attending Assessment/Plan: needs cysto: bilat. stent change now.
--- NOTE | 2017-11-21 18:26 | Operative Report ---
Operative/Inv Procedure Report Surgery Date: 11/21/17 Name of Procedure: cystoscopy: bilateral retrograde pyelogram: bilat. flexible ureteroscopy: bilateral stent exchange: hall placement Pre-Operative Diagnosis: BPH-retention with bilat. hydro. and severe renal failure Post-Operative Diagnosis: same Estimated Blood Loss: scant Surgeon/Pastry Sous Chef: MD Marcin, Arnold-urology Anesthesia: general endotracheal tube Drains: 18 fr. tribal tip hall Specimens: bilat old stents Complications: none Operative/Procedure Note Note: The patient was taken to the operating room placed on the OR table in supine position. Timeout was performed in order to confirm the patient's identity, procedure, lateraliy, antibiotics, anesthesia, and other pertinent sharon- operative information. After adequate anesthesia and antibiotics, the patient was then placed in lithotomy stirrups, draped and prepped in the usual surgical fashion. A 22 Polish cystoscope sheath with 30 angle lens was inserted without difficulty. Upon entering the bladder, the bladder was noted to be free of tumor free of stone. The bladder was severely trabeculated, and the prostate and obstructive. Both ureteral orifices were in their orthotopic position, and both were intubated with an old stent. Using the alligator forcep, both stents were removed without difficulty. The cystoscope was then reinserted into the bladder. Using a ureteral open-ended stent, bilat. retrograde pyelograms were perfomed revealing no filling defects, bilateral hydronephrosis, with slow drainage of contrast. The plan for bilat. ureterscopy proceeded. The right orifice was intubated with a 0.035 gluide wire and advanced to the right renal pelvis without difficulty. Using the gluide wire, and fluoroscope, the flexible uretersocope was placed over the gluide wire, and railroaded to the right renal pelvis with fluoroscopic guidance. Thorough calyx-oscopy and pyeloscopy confirms no tumor, and few stone fragments (which were irrigated out and sent to pathology for analysis). At this point, the ureteroscope was then gently retracted into the right renal pelvis without difficulty. With the ureteroscope gently extracted, no stone/tumor was seen in the renal pelvis, nor ureter as well. The same procedure was performed on the left ureter and kidney finding small peteciae trauma from prior stent. The entire length of the left ureter was aslo visualize carefully on the way out with the ureteroscope, and the same findings of no significantly sized stone framents, nor tumor was seen. The 22 Polish cystoscope sheath with a 30 angle lens was then re-serted into the bladder. The right orifice was intubated with a 0.035 Glidewire and advanced into the right renal pelvis without difficulty. Over this Glidewire a new 7 X 24cm Bard onlay stent was inserted. With the proximal coil seen in the right renal pelvis with fluoroscopy, and the distal coil seen in the bladder cystoscopically the Glidewire was removed and the stent remained in proper place. The same technique was used to place a similar [id number] stent in the left ureter without difficulty. A guide wire was then inserted into the bladder via the cystoscope. The scope was then removed leaving the wire in place. An 18 fr coucil tip hall was railroaded over the wire and advanced into the bladder. 10cc of sterile water was placed into the hall balloon. Cystogram with contrast was performed via the hall, confirming correct placement of the hall. The hall was then attached to a drainage bag. All sponge needle and instrument count were correct at the end of the case. The patient tolerated the procedures well, and was then taken to the recovery room in satisfactory condition. Discharge Disposition: PACU Additional Comments: admitted to medicine CC: Eben Burch MD
[2017-11-21 19:30] VITALS: BP 146/64
--- NOTE | 2017-11-21 23:04 | Admission Certification ---
Admission Certification Certification Statement - As attending physician, I certify that at the time of - admission, based on clinical presentation, severity of - symptoms, need for further diagnostic testing and - therapeutic interventions, and risk of adverse outcomes - without in-hospital treatment, in my clinical assessment, - this patient requires an acute hospital stay for a minimum - of two nights or longer. I have also considered psychsocial - factors such as support system, advanced age, financial - issues, cognitive issues, and failed out-patient treatments, - past re-admission history, safety of patient, and lack of - compliance as applicable. Specific rationale supporting this admission is: The patient presents with severe acute on chronic renal failure (Cr 22) with severe metabolic acidosis and anemia. Most likely secondary to obstructive uropathy. Needs Urology/Nephrology consults- IV bicarbonate drip and close I/O monitoring. Coude cath to be plaed by Dr. Burch, will probaly need tunnel cath and dialysis tomorrow.
[2017-11-22] VITALS: BP 116/60
--- NOTE | 2017-11-22 07:17 | PN- Urology ---
Surgical Brief Attending Note Brief Attending Note: Pt stable overnight: pending renal/acidosis improvement: for dc home with hall: pt to f/u with his urologist in [place] in 1-2 months after dc home.
[2017-11-22 07:34] LABS: ABSOLUTE BASOPHIL COUNT 0 /CUMM (0.0-0.2); ABSOLUTE EOSINOPHIL COUNT 0 /CUMM (0.0-0.7); ABSOLUTE GRANULOCYTE CT 2.7 /CUMM (1.4-6.5); ABSOLUTE LYMPH COUNT 0.4 /CUMM (1.2-3.4); ABSOLUTE MONOCYTE COUNT 0.4 /CUMM (0.10-0.60); BASOPHIL % 0.2 % (0.0-2.0); RBC DISTRIBUTION WIDTH 14.8 % (11.5-14.5)
--- NOTE | 2017-11-22 07:59 | PN- Resident CRCU ---
Tita THOMAS,Bernard 11/22/17 0758: Subjective HPI/CRCU Issues: Acute kidney injury, requiring dialysis 24 Hour Events: I followed up and examined the patient today. He had undergone bilateral ureteral stent placement and a Murillo placement by urologist Dr. Eben Burch, in the operating room yesterday. Overnight his vitals have remained stable, in no nursing issues reported to me either. Objective Vital Signs & I&O Last 8 Hrs of Vitals and I&O: Vital Signs Date Time Temp Pulse Resp B/P B/P Pulse O2 O2 Flow FiO2 Mean Ox Delivery Rate 11/21 2228 Nasal 2.0L Cannula 11/21 193 98 Nasal 2.0L Cannula 11/21 193 98.4 112 20 146/64 94 Nasal 2.0L Cannula 11/21 1131 97.5 109 24 120/60 100 11/21 1100 94 Nasal 2.0L Cannula 11/21 0930 111 18 146/76 100 Intake & Output 11/22 0800 11/22 0000 11/21 1600 Intake Total 1900 1640 Output Total 230 350 Balance 1670 1290 Intake, IV 1700 1400 Intake, Oral 200 240 Number 0 Bowel Movements Output, Urine 230 350 Patient 97.551 kg 81.647 kg Weight Weight Bed scale Reported by Patient Measurement Method Exam General Appearance: no apparent distress, alert, awake, comfortable, overweight Other Physical Findings: Sepsis Skin Exam (color): Normal for Ethnicity, Cyanotic HEENT Atraumatic, PERRLA, EOMI Neck Supple, No JVD Cardiovascular Regular Rate, Normal S1, Normal S2 Lungs Clear to Auscultation, Normal Air Movement Abdomen Normal Bowel Sounds, Soft, No Tenderness Neurological grossly intact Extremities No Clubbing, No Cyanosis, No Edema Murillo Site: urethral Date In: 11/21/17 Still Needed? Yes IV Drips IV Drips: NaHCO3 Nutrition Nutrition: P.O. diet (Renal dialysis diet) Current Medications: Current Medications Sig/James Start time Last Medication Dose Route Stop Time Status Admin Acetaminophen 650 MG ONCE ONE 11/21 2144 DC 11/21 PO 11/21 2146 2217 Calcium Acetate 667 MG WM 11/22 0330 AC 11/22 PO 0541 Calcium Gluconate 1 GM ONCE ONE 11/21 2245 DC 11/21 Sodium Chloride 100 ML IV 11/21 2344 2301 Fentanyl Citrate 100 MCG .STK-MED ONE 11/21 1534 DC IM / 1535 Insulin Aspart 1 UNITS .STK-MED ONE 11/21 1614 DC SC / 1615 Insulin Human Regular 10 UNITS .STK-MED ONE 11/21 1604 DC IV / 1605 Magnesium Sulfate 1 GM Q2H 11/22 0315 DC 06/08 Dextrose/Water 100 ML IV 11/22 0714 0431 Magnesium Sulfate 1 GM Q2H / 2245 DC 06/ Dextrose/Water 100 ML IV / 0244 0045 Midazolam HCl 2 MG .STK-MED ONE 11/21 1534 DC IM / 1535 Sodium Bicarbonate 150 MEQ Q6H 11/21 1500 AC / Dextrose/Water 850 ML IV 0120 Sodium Chloride 1,000 ML BOLUS ONE 11/21 1000 DC 06/ IV / 1059 1013 Impression/Plan Impression/Problem List Impression: 62 yo male with h/o BPH s/p green light laser surgery with b/l ureteral stent placement ~4 years ago with h/o obstructive uropathy in past (hospitalized at [facility] in [facility]) with CINDI requring HD x1, with requiring indwelling Murillo cath x6 months several years ago, is here admitted for fatigue, vomitting, and was found to be in acute kidney injury. He was initially admitted to the general medical floor and then transferred to the ICU. Patient is currently being treated in the ICU for the following issues: RESPIRATORY No issues INFECTIOUS DISEASE No issues CARDIOLOGY No issues HEMATOLOGY #Acute blood loss anemia, requiring transfusion Patient had gross hematuria and after the procedure, this AM, hi h/h was found to be 5.7/16.7, a drop from 8.1/24.0. He was transfused two units of blood with dialysis today. METABOLIC #Acute kidney injury Patient was found to be in acute kidney injury with BUN/creatinine of 212/22, for someone who did not report any chronic kidney disease. His BUN/creatinine ratio was 9.6, he did not appear dehydrated, was not taking any nephrotoxic drugs, and his imaging appeared to be obstructive. Urologist was consulted, and he underwent an urgent bilateral ureteral stent replacement and a Murillo placement yesterday on 11/21/17. This morning his AK I has slightly improved to creatinine of 19, but he still is has CINDI. * Tunneled catheter placed after obtaining consent as per suggestion by nephrology * Dialysis performed today * 2 units of blood transfusion done during dialysis * Electrolytes repleted per nephrology recommendations ALIMENTARY Restarted oral feeding NEPHROLOGY CINDI, as mentioned above. Hemodialysis started today. * Plan for tomorrow as well per nephrology. NEUROLOGY No issues CHRONIC ISSUES OTHERWISE: - Misc: Diet: Renal dialysis diet DVT prophylaxis: ALPS Code status: Full code IV access: Peripheral Case management issues: Discussed, tay regarding his no insurance status and the need for dialysis. financial advisor trainee will probably see him on Saturday. Problem List: 1. CINDI (acute kidney injury) 2. Acute blood loss anemia Pain Ratin Pain Location: - Pain Goal: Pain 4 or less Pain Plan: prn Tomorrow's Labs & Rationales: BEP, Ca later today; ICU lab bundle, CBC tomorrow Plan DVT/Prophylaxis: Julio Coles MD 11/22/17 1256: Attending MD Review Statement Attending Sign Off Attending Cosign Statement: I have: examined this patient, reviewed [facility] EMR data, personally reviewd images, discussd w/resident/PA/MANPOWER DEVELOPMENT SPECIALIST MANAGER, discussed mgmt plan w/CM, discussed mgmt plan w/pt, agreed w/resident/PA/MANPOWER DEVELOPMENT SPECIALIST MANAGER, amended to note. Other Findings: The patient was seen and discussed with house staff. Appreciate Nephrology follow-up. Agree with plan of care as outlined. Having dialysis now. Follow labs and I/O's closely.
[2017-11-22 08:00] VITALS: BP 105/67
[2017-11-22 08:12] LABS: EOSINOPHIL % 1.1 % (0-5); MEAN CORPUSCULAR HGB 30.2 PG (27.0-31.0); MEAN CORPUSCULAR HGB CONC 34.5 G/DL (33.0-37.0); MEAN CORPUSCULAR VOLUME 87.6 FL (80.0-94.0); MEAN PLATELET VOLUME 9.8 FL (7.4-10.4); PLATELET COUNT 95 /CUMM (130-400)
--- NOTE | 2017-11-22 08:17 | RADIOLOGY REPORT ---
EXAMINATION: CR ABDOMEN/INTRAOPERATIVE FLUOROSCOPY CLINICAL INDICATION: Bilateral stent placement. COMPARISON: None TECHNIQUE/FINDINGS: Fluoroscopic equipment was dedicated to the operating room for the performance of an intraoperative procedure. Several (4) spot films were acquired and are archived in PACS. Please refer to operative notes for procedural detail. FLUOROSCOPY TIME: 2.6 minutes. IMPRESSION: Administrative dictation for intraoperative fluoroscopy and image archiving in PACS. Please refer to operative notes for details.
[2017-11-22 08:21] LABS: HEMATOCRIT 16.7 % (42-52)
[2017-11-22 08:22] LABS: WHITE BLOOD CELL COUNT 3.6 /CUMM (4.8-10.8)
--- NOTE | 2017-11-22 10:27 | PN- Nephrology ---
Assessment/Plan Nephrology Assessment: 1. 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 Met acid: severe & life threatening despite IV Na bicarb drip --> correct w HD 3. Hypocalcemia: due to renal failure & hyperphos; needs Ca based binder, active Vit D, & dialysis 4. Anemia: will need transfusion & MIHAELA Suggestion: 1. IR consult tunneled HD cath [place] 2. HD today once access available; repeat tomorrow 3. increase Ca acetate 2001 mg w meals 4. calcitriol 1 mcg IV tiw w HD 5. Tx 2 units prbc w HD 6. EPO w HD 7. stop bicarb drip once HD started 8. KCl 40 me po this AM pre HD --> ordered Subjective Subjective: Mild nausea w/o vomiting Denies SOB Urology findings noted --> Murillo placed & stents changed --> gross hematuria now Objective Vital Signs and I&Os Vital Signs Date Time Temp Pulse Resp B/P B/P Pulse O2 O2 Flow FiO2 Mean Ox Delivery Rate 11/22 0400 100 Nasal 1.0L Cannula 11/22 0000 100 Nasal 1.0L Cannula 11/22 0000 98.7 113 20 116/60 100 Nasal 1.0L Cannula 11/21 2228 Nasal 2.0L Cannula 11/21 1930 98 Nasal 2.0L Cannula 11/21 1930 98.4 112 20 146/64 94 Nasal 2.0L Cannula 11/21 1131 97.5 109 24 120/60 100 06/07 1100 94 Nasal 2.0L Cannula Intake & Output 11/22 1600 11/22 0400 11/21 1600 11/21 0400 11/20 1600 11/20 0400 Intake Total 1374 1900 1640 Output Total 650 230 350 Balance 724 1670 1290 Intake, IV 1374 1700 1400 Intake, Oral 200 240 Number 0 0 Bowel Movements Output, Urine 650 230 350 Patient 221 lb 180 lb Weight Weight Bed scale Reported by Patient Measurement Method Physical Exam General Appearance: well developed/nourished, no apparent distress, alert Head: atraumatic, normal appearance Ears, Nose, Throat: normal ENT inspection Neck: normal inspection Respiratory: no respiratory distress, quiet respiration, lungs clear Cardiovascular: regular rate/rhythm, friction rub (none) Abdomen: soft, non-tender, no organomegaly Extremities: no edema Neurologic/Psychiatric: awake, alert, finishing area supervisor II-XII nml as tested, + asterxis Current Medications: Current Medications Sig/James Start time Last Medication Dose Route Stop Time Status Admin Acetaminophen 650 MG ONCE ONE 11/21 2145 DC / PO 11/21 2146 2217 Calcium Acetate 667 MG WM 11/22 0330 AC / PO 0944 Calcium Gluconate 1 GM ONCE ONE 11/21 2245 DC 11/21 Sodium Chloride 100 ML IV 11/21 2344 2301 Fentanyl Citrate 100 MCG .STK-MED ONE 11/21 1534 DC IM 11/21 1535 Insulin Aspart 1 UNITS .STK-MED ONE 11/21 1614 DC SC 11/21 1615 Insulin Human Regular 10 UNITS .STK-MED ONE 11/21 1604 DC IV 11/21 1605 Magnesium Sulfate 1 GM Q2H 11/22 0315 DC / Dextrose/Water 100 ML IV 11/22 0714 0431 Magnesium Sulfate 1 GM Q2H 11/21 2245 DC 11/22 Dextrose/Water 100 ML IV 11/22 0244 0045 Midazolam HCl 2 MG .STK-MED ONE 11/21 1534 DC IM 11/21 1535 Sodium Bicarbonate 150 MEQ Q6H / 1500 AC 11/22 Dextrose/Water 850 ML IV 0939 Sodium Chloride 1,000 ML BOLUS ONE 11/21 1000 DC 06/ IV / 1059 1013 Results Pertinent Lab Results: Laboratory Tests 11/22 11/22 11/22 0630 0600 0130 Chemistry Sodium (137 - 145 mmol/L) 139 141 Potassium (3.5 - 5.1 mmol/L) 3.6 4.2 Chloride (98 - 107 mmol/L) 106 107 Carbon Dioxide (22 - 30 mmol/L) 8 *L 6 *L Anion Gap (5 - 16) 25 H 28 H BUN (9 - 20 mg/dL) 210 *H 202 *H Creatinine (0.7 - 1.2 mg/dL) 19.8 *H 20.0 *H Estimated GFR (>60 ml/min) 2 L 2 L Glucose (65 - 99 mg/dL) 116 H 131 H Calcium (8.4 - 10.2 mg/dL) 5.0 *L 5.0 *L Phosphorus (2.5 - 4.5 mg/dL) 9.7 H 9.9 H Magnesium (1.6 - 2.3 mg/dL) 2.3 1.8 Total Bilirubin (0.2 - 1.3 mg/dL) 0.2 0.2 AST (17 - 59 U/L) 18 16 L ALT (21 - 72 U/L) 17 L 16 L Albumin (3.5 - 5.0 g/dL) 2.9 L Cancelled 3.1 L Hematology CBC w Diff NO MAN DIFF REQ Cancelled WBC (4.8 - 10.8 /CUMM) 3.6 L Cancelled RBC (4.70 - 6.10 /CUMM) 1.90 L Cancelled Hgb (14.0 - 18.0 G/DL) 5.7 *L Cancelled Hct (42 - 52 %) 16.7 *L Cancelled MCV (80.0 - 94.0 FL) 87.6 Cancelled MCH (27.0 - 31.0 PG) 30.2 Cancelled MCHC (33.0 - 37.0 G/DL) 34.5 Cancelled RDW (11.5 - 14.5 %) 14.8 H Cancelled Plt Count (130 - 400 /CUMM) 95 L Cancelled MPV (7.4 - 10.4 FL) 9.8 Cancelled Gran % (42.2 - 75.2 %) 75.0 Lymphocytes % (20.5 - 51.1 %) 12.4 L Monocytes % (1.7 - 9.3 %) 11.3 H Eosinophils % (0 - 5 %) 1.1 Basophils % (0.0 - 2.0 %) 0.2 Absolute Granulocytes (1.4 - 6.5 /CUMM) 2.7 Absolute Lymphocytes (1.2 - 3.4 /CUMM) 0.4 L Absolute Monocytes (0.10 - 0.60 /CUMM) 0.4 Absolute Eosinophils (0.0 - 0.7 /CUMM) 0 Absolute Basophils (0.0 - 0.2 /CUMM) 0 11/21 11/21 11/21 11/21 1922 1922 1630 1444 Chemistry Sodium (137 - 145 mmol/L) 141 Cancelled Potassium (3.5 - 5.1 mmol/L) 5.2 H Cancelled Chloride (98 - 107 mmol/L) 109 H Cancelled Carbon Dioxide (22 - 30 mmol/L) < 5 *L Cancelled Anion Gap (5 - 16) Cancelled BUN (9 - 20 mg/dL) 205 *H Cancelled Creatinine (0.7 - 1.2 mg/dL) 20.6 *H Cancelled Estimated GFR (>60 ml/min) 2 L BUN/Creatinine Ratio (7 - 25 %) 10.0 Cancelled Glucose (65 - 99 mg/dL) 91 Uric Acid (3.5 - 8.5 mg/dL) 8.8 H Calcium (8.4 - 10.2 mg/dL) 5.0 *L Phosphorus (2.5 - 4.5 mg/dL) 10.7 H Magnesium (1.6 - 2.3 mg/dL) 1.5 L Total Bilirubin (0.2 - 1.3 mg/dL) 0.3 Direct Bilirubin (< 0.4 mg/dL) 0.3 AST (17 - 59 U/L) 16 L ALT (21 - 72 U/L) 19 L Alkaline Phosphatase (< 127 U/L) 74 Creatine Kinase (55 - 170 U/L) 423 H C-Reactive Prot, Quant (<1.0 mg/dL) 5.2 H Total Protein (6.3 - 8.2 g/dL) 6.6 Albumin (3.5 - 5.0 g/dL) 3.5 Immunology Cryoglobulin Interp Pending Toxicology Urine Opiates Screen (>2000 NG/ML) < 100 Methadone Screen (>300 NG/ML) 40 Barbiturate Screen (>200 NG/ML) < 60 Ur Phencyclidine Scrn (>25 NG/ML) < 6.00 Amphetamines Screen (>1000 NG/ML) < 100 U Benzodiazepines Scrn (>200 NG/ML) < 85 Urine Cocaine Screen (>300 NG/ML) < 50 Urine Cannabis Screen (>50 NG/ML) 5.40 Urines Ur Random Creatinine (mg/dL) 44.5 U Random Total Protein (0 - 12 mg/dL) 369 H Ur Random Sodium (30 - 90 mmol/L) 115 H Ur Random Potassium (mmol/L) 10.3 Fraction Sodium Excret (<1% %) 40.3 H 06/07 06/07 1415 1300 Immunology ALEXX Titer Cancelled Anti-Nuclear Antibody Cancelled Urines Urine Color (YEL,AMB,STR) BLDY H Urine Clarity (CLEAR) CLDY H Urine pH (5.0 - 8.0) 6.0 Ur Specific [place] (1.001 - 1.035) 1.020 Urine Protein (NEG,<30 MG/DL) >=300 H Urine Ketones (NEG) NEG Urine Nitrite (NEG) POS H Urine Bilirubin (NEG) NEG@ICTO Urine Urobilinogen (0.1 - 1.0 EU/dl) 0.2 Ur Leukocyte Esterase (NEG) LARGE H Ur Microscopic SEDIMENT EXAMINED Urine RBC (0 - 5 /HPF) >75 H Urine WBC (0 - 2 /HPF) > 75 H Ur Epithelial Cells (NONE,FEW) RARE Urine Bacteria (NEG/NONE) MANY H Urine Hemoglobin (NEG) LARGE H Ur Random Creatinine Cancelled Ur Random Sodium Cancelled Ur Random Potassium Cancelled Urine Total Volume Cancelled Ur Total Protein 24 Hr Cancelled Fraction Sodium Excret Cancelled Urine Glucose (N MG/DL) NEG 11/21 11/21 11/21 1255 1250 0819 Chemistry Sodium (137 - 145 mmol/L) Cancelled Cancelled 141 Potassium (3.5 - 5.1 mmol/L) Cancelled Cancelled 5.4 H Chloride (98 - 107 mmol/L) Cancelled Cancelled 108 H Carbon Dioxide (22 - 30 mmol/L) Cancelled Cancelled < 5 *L Anion Gap (5 - 16) Cancelled Cancelled 28.69218 H BUN (9 - 20 mg/dL) Cancelled Cancelled 212 *H Creatinine (0.7 - 1.2 mg/dL) Cancelled Cancelled 22.0 *H Estimated GFR (>60 ml/min) 2 L BUN/Creatinine Ratio (7 - 25 %) Cancelled Cancelled 9.6 Glucose (65 - 99 mg/dL) 123 H Calcium (8.4 - 10.2 mg/dL) 5.6 *L Phosphorus (2.5 - 4.5 mg/dL) 11.8 H Magnesium (1.6 - 2.3 mg/dL) 1.6 Total Bilirubin (0.2 - 1.3 mg/dL) 0.4 AST (17 - 59 U/L) 15 L ALT (21 - 72 U/L) 17 L Alkaline Phosphatase (< 127 U/L) 81 Troponin I (<0.11 ng/ml) 0.01 [id number] Pept (<125 pg/mL) 72526 H Total Protein (6.3 - 8.2 g/dL) 7.4 Albumin (3.5 - 5.0 g/dL) 4.2 Globulin (1.9 - 4.2 gm/dL) 3.2 Albumin/Globulin Ratio (1.1 - 2.2 %) 1.3 TSH (0.270 - 4.200 uIU/mL) 0.800 PTH Intact (18.4 - 80.1 pg/ML) 1446.4 H Coagulation PT (9.4 - 12.5 SEC) 12.4 INR (0.90 - 1.17) 1.14 APTT (25 - 37 SEC) 35 D-Dimer High Sensitivty (0 - 243 ng/ml) 518 H Hematology CBC w Diff NO MAN DIFF REQ WBC (4.8 - 10.8 /CUMM) 7.9 RBC (4.70 - 6.10 /CUMM) 2.71 L Hgb (14.0 - 18.0 G/DL) 8.1 L Hct (42 - 52 %) 24.0 L MCV (80.0 - 94.0 FL) 88.5 MCH (27.0 - 31.0 PG) 30.0 MCHC (33.0 - 37.0 G/DL) 33.9 RDW (11.5 - 14.5 %) 14.9 H Plt Count (130 - 400 /CUMM) 155 MPV (7.4 - 10.4 FL) 8.9 Gran % (42.2 - 75.2 %) 81.9 H Lymphocytes % (20.5 - 51.1 %) 7.3 L Monocytes % (1.7 - 9.3 %) 9.5 H Eosinophils % (0 - 5 %) 0.1 Basophils % (0.0 - 2.0 %) 1.2 Absolute Granulocytes (1.4 - 6.5 /CUMM) 6.5 Absolute Lymphocytes (1.2 - 3.4 /CUMM) 0.6 L Absolute Monocytes (0.10 - 0.60 /CUMM) 0.7 H Absolute Eosinophils (0.0 - 0.7 /CUMM) 0 Absolute Basophils (0.0 - 0.2 /CUMM) 0.1 Serology Hepatitis A IgM Ab (NONREACTIVE) NONREACTIVE Hep Bs Antigen (NONREACTIVE) NONREACTIVE Hep B Core IgM Ab Conf (NONREACTIVE) NONREACTIVE Hepatitis C Antibody (NONREACTIVE) NONREACTIVE 11/21 0814 Chemistry Lactic Acid (0.7 - 2.1 mmol/L) 0.6 L Imaging/Other Studies: Renal US: 1. Bilateral hydronephrosis, right greater than left. 2. Bilateral stents are partially visualized.
--- NOTE | 2017-11-22 14:54 | ULTRASOUND REPORT ---
CLINICAL HISTORY: This patient is a 62 years old Male with ESRD, who presents to Interventional Radiology for placement of a tunneled central venous catheter for hemodialysis. PROCEDURES: 1. Real-time ultrasound-guided access into the right internal jugular vein after documentation of selected vessel patency, and permanent imaging storing in the patient records. 2. Placement of a tunneled 16-Fr 28 cm dual lumen central venous catheter. PHYSICIANS: Dr. Tessy Gamino (attending). MONITORING: The procedure was performed with conscious sedation and analgesia under my direct supervision. Continuous blood pressure, pulse oximetry as well as heart rate monitoring was performed by an independent registered nurse. Physician intraservice sedation time was 15 minutes. MEDICATIONS: 1. Versed 1 mg, fentanyl 50 mcg IV were administered. 2. Lidocaine 1%, 5 mL SQ. 3. Lidocaine 1%, 15 mL with epinephrine SQ. CONTRAST: None FLUOROSCOPY TIME: 1.1 minutes DAP: 9.2 uGym2 COMPLICATIONS: None ESTIMATED BLOOD LOSS: <50 mL SPECIMENS: None IMPLANT: None SITE MARKING: As part of the preprocedure verification policy, a site marking procedure was initiated. Due to the nature the procedure, the insertion site could not be predetermined thus invoking the policy of exemption to site laterality and marking. Insertion site marking was performed in the procedure room in conjunction with imaging confirmation. PROCEDURE NOTE: Informed consent was obtained from the patient prior to the procedure. During this process, the procedure and potential alternatives were explained along with the intended outcome and benefits. The risks of the procedure, including the possibility of an unsuccessful procedure, as well as the risk of not doing the procedure, were discussed. The patient was given the opportunity to ask questions regarding the procedure and appeared competent to make decisions. A signed consent form documenting this discussion was placed in the medical record. A time-out procedure was performed. The patient was placed supine on the fluoroscopy table. All elements of maximal sterile barrier technique followed including use of cap, mask, sterile gown, sterile gloves, a sterile full body drape and hand hygiene. Also followed skin preparation with 2% chlorhexidine for cutaneous antisepsis, and sterile ultrasound preparation with sterile gel and probe cover when applicable. Local anesthesia was administered to the access site with lidocaine. The right internal jugular vein was accessed using ultrasound with a micropuncture Micropuncture set. A 0.018 wire was advanced into the high right atrium for measuring purposes. The 0.018 wire was subsequently exchanged for a 0.035 J wire that was advanced to the IVC to maintain access during the tunneling process. Next, subcutaneous lidocaine was administered to the chest, and a subcutaneous tunnel that connects to the venotomy site was created using blunt dissection. The dialysis catheter was sized for the correct tunnel length. The catheter was then pulled through the tunnel. The sheath in the IJ was exchanged over the wire for sequential dilators and lastly a peel-away sheath. The inner dilator and J wire were removed, and the catheter was advanced through the sheath. The sheath was peeled away. The catheter was tested, flushed, and sutured to the skin with its tip in the high right atrium. A Biopatch and sterile dressing were applied. Dermabond was utilized to close the dermatotomy at the neck. The patient tolerated the procedure well. FINDINGS: 1. Patent right internal jugular vein. 2. Tip of catheter in the high right atrium. 3. Catheter flushes and aspirates very well. 4. No pneumothorax. IMPRESSION: Successful and uncomplicated placement of a tunneled hemodialysis catheter. PLAN: 1. The patient was stable after the procedure and was transferred to the interventional recovery area. The patient will be transferred to the floor. 2. The catheter may be used immediately. 3. The suture securing the catheter should remain in place for 4 weeks or greater.
[2017-11-22 16:00] VITALS: BP 130/60
[2017-11-22 20:06] LABS: ABSOLUTE BASOPHIL COUNT 0 /CUMM (0.0-0.2); ABSOLUTE EOSINOPHIL COUNT 0 /CUMM (0.0-0.7); ABSOLUTE GRANULOCYTE CT 3.7 /CUMM (1.4-6.5); ABSOLUTE LYMPH COUNT 0.3 /CUMM (1.2-3.4); ABSOLUTE MONOCYTE COUNT 0.5 /CUMM (0.10-0.60); BASOPHIL % 0.1 % (0.0-2.0); EOSINOPHIL % 0.4 % (0-5); GRANULOCYTE % 82.5 % (42.2-75.2); MEAN CORPUSCULAR HGB 29.3 PG (27.0-31.0); MEAN CORPUSCULAR HGB CONC 34.3 G/DL (33.0-37.0); MEAN CORPUSCULAR VOLUME 85.5 FL (80.0-94.0); MEAN PLATELET VOLUME 8.9 FL (7.4-10.4); RBC DISTRIBUTION WIDTH 15.6 % (11.5-14.5); WHITE BLOOD CELL COUNT 4.5 /CUMM (4.8-10.8)
[2017-11-22 20:12] LABS: HEMATOCRIT 22.4 % (42-52); RED BLOOD CELL CT 2.62 /CUMM (4.70-6.10)
[2017-11-22 20:15] LABS: PLATELET COUNT 101 /CUMM (130-400)
[2017-11-23] VITALS: BP 118/74
[2017-11-23 03:56] LABS: ABSOLUTE BASOPHIL COUNT 0 /CUMM (0.0-0.2); ABSOLUTE EOSINOPHIL COUNT 0 /CUMM (0.0-0.7); ABSOLUTE GRANULOCYTE CT 3.4 /CUMM (1.4-6.5); ABSOLUTE LYMPH COUNT 0.4 /CUMM (1.2-3.4); ABSOLUTE MONOCYTE COUNT 0.6 /CUMM (0.10-0.60); BASOPHIL % 0.3 % (0.0-2.0); EOSINOPHIL % 0.5 % (0-5); GRANULOCYTE % 77.4 % (42.2-75.2); HEMATOCRIT 21.7 % (42-52); MEAN CORPUSCULAR HGB 29.5 PG (27.0-31.0); MEAN CORPUSCULAR HGB CONC 34.4 G/DL (33.0-37.0); MEAN CORPUSCULAR VOLUME 85.7 FL (80.0-94.0); MEAN PLATELET VOLUME 8.7 FL (7.4-10.4); PLATELET COUNT 99 /CUMM (130-400); RED BLOOD CELL CT 2.54 /CUMM (4.70-6.10); WHITE BLOOD CELL COUNT 4.4 /CUMM (4.8-10.8)
[2017-11-23 08:00] VITALS: BP 120/70
--- NOTE | 2017-11-23 08:01 | PN- Resident CRCU ---
Tita THOMAS,Bernard 11/23/17 0801: Subjective HPI/CRCU Issues: Acute kidney injury, requiring dialysis Acute blood loss anemia, requiring transfusion 24 Hour Events: I followed up and examined the patient today. He is undergoing dialysis right now, and mentioned that she is nauseous, for which he just received IM Tigan. In the last 24 hours, he has received 2 units of PRBC, after which his hemoglobin has increased as expected and remains above 7. Nursing staff reported some confusion and ongoing intermittant jerkiness. Patient's father had called in to ask about his condition. He can be contacted at [phone] (landline) preferred, Yosi (father). The father mentioned that the patient's sisters would visit him later today. Objective Vital Signs & I&O Last 8 Hrs of Vitals and I&O: Vital Signs Date Time Temp Pulse Resp B/P B/P Pulse O2 O2 Flow FiO2 Mean Ox Delivery Rate 11/23 0400 95 Room Air 11/23 0000 96 Room Air 11/23 0000 99.4 103 20 118/74 96 Room Air 11/22 1600 100 Room Air 11/22 1600 98.0 111 12 130/60 100 Room Air Intake & Output 11/23 1600 11/23 0800 06/ 0000 Intake Total 110 Output Total 555 340 Balance -555 -230 Intake, Oral 110 Number 1 0 Bowel Movements Output, Urine 555 340 Patient 96.814 kg Weight Weight Bed scale Measurement Method Exam General Appearance: well developed/nourished, no apparent distress, alert, awake , comfortable, overweight, confused Other Physical Findings: Sepsis Skin Exam (color): Normal for Ethnicity, Cyanotic HEENT Atraumatic, PERRLA, EOMI Neck Supple, No JVD Cardiovascular Regular Rate, Normal S1, Normal S2 Lungs Clear to Auscultation, Normal Air Movement Abdomen Normal Bowel Sounds, Soft, No Tenderness Neurological grossly intact Extremities No Clubbing, No Cyanosis, No Edema Murillo in situ, draining simone, blood-tinged urine Murillo Site: urethral Date In: 11/21/17 Still Needed? Yes IV Drips IV Drips: - Nutrition Nutrition: P.O. diet (Renal dialysis diet) Current Medications: Current Medications Sig/James Start time Last Medication Dose Route Stop Time Status Admin Calcitriol 1 MCG MoWeFr 11/22 1400 AC 11/22 IV 1539 Calcium Acetate 2,001 MG WM / 1200 AC 06/ PO 1649 Calcium Acetate 667 MG WM 11/22 0330 DC 06/ PO 0944 Epoetin Lizandro 6,000 UNIT MoWeFr 11/22 1359 AC 11/22 IV 1539 Fentanyl Citrate 0 .STK-MED ONE 11/22 1226 DC .ROUTE Heparin Sodium 0 .STK-MED ONE 11/22 1132 DC (Porcine) IV Lidocaine 0 .STK-MED ONE 11/22 1132 DC .ROUTE Lidocaine/Epinephrine 0 .STK-MED ONE 11/22 1132 DC .ROUTE Magnesium Sulfate 2 GM .STK-MED ONE 11/22 1819 DC IV 11/22 1820 Midazolam HCl 0 .STK-MED ONE 11/22 1226 DC .ROUTE Pantoprazole Sodium 40 MG DAILY 11/23 0430 AC 11/23 IV 0437 Potassium Chloride 40 MEQ ONCE ONE 11/22 2045 DC /08 PO 11/22 2046 2049 Potassium Chloride 40 MEQ ONCE ONE 11/22 1030 DC / PO 11/22 1031 1055 Promethazine HCl 25 MG ONCE ONE 11/23 0800 DC PO 11/23 0801 Sodium Bicarbonate 150 MEQ Q6H 11/21 1500 DC 11/22 Dextrose/Water 850 ML IV 0939 Impression/Plan Impression/Problem List Impression: 62 yo male with h/o BPH s/p green light laser surgery with b/l ureteral stent placement ~4 years ago with h/o obstructive uropathy in past (hospitalized at [facility] in [facility]) with CINDI requring HD x2, with requiring indwelling Murillo cath x6 months several years ago, is here admitted for fatigue, vomitting, and was found to be in acute kidney injury. He was initially admitted to the general medical floor and then transferred to the ICU. Patient is currently being treated in the ICU for the following issues: RESPIRATORY No issues INFECTIOUS DISEASE No issues CARDIOLOGY No issues HEMATOLOGY #Acute blood loss anemia, requiring transfusion Patient had gross hematuria and after the procedure, on 11/22/17, his h/h was 5.7/ 16.7, a drop from 8.1/24.0. He was transfused two units of blood with dialysis and the post transfusion h/h this AM is 7.5/21.7. No acute changes in vitals to suggest massive bleeding. Target Hb is 7. METABOLIC #Acute kidney injury/Uremia Patient was found to be in acute kidney injury with BUN/creatinine of 212/22, for someone who did not report any chronic kidney disease. His BUN/creatinine ratio was 9.6, he did not appear dehydrated, was not taking any nephrotoxic drugs, and his imaging appeared to be obstructive. Urologist was consulted, and he underwent an urgent bilateral ureteral stent replacement and a Murillo placement on 11/21/17. He got a tunneled catheter placed yesterday 11/22/17, and got the first hemodialysis session. This morning he underwent a second hemodialysis session, and prior to the hemodialysis, his CINDI has slightly improved to creatinine of 13.8. * Appreciate nephrology consultation * Dialysis performed today Day 2 ALIMENTARY Renal hemolysis diet NEPHROLOGY CINDI, as mentioned above. Hemodialysis started yesterday on 11/22/17. Second session today. * Plan for further sessions per nephrology. NEUROLOGY #Jitteriness: ?Due to dialysis disequilibrium syndrome #Seizure episode, witnessed today at ~1330 hrs: GTCS, <1min, resolved on its won before benzos, but needed airway protection. Post ictal later. Discussed with attending Dr Kunz, and called neurology consult stat. CBC, ICU lab bundle, prolactin, Trop, EKG sent, STAT CT head awaiting results. CHRONIC ISSUES OTHERWISE: - Misc: Diet: Renal dialysis diet DVT prophylaxis: ALPS Code status: Full code IV access: Peripheral Case management issues: Discussed, tay regarding his no insurance status and the need for dialysis. optical advisor will probably see him on Saturday. Family update: I spoke with patient's father Yosi and updated with his status. His sisters are expected to visit him from [place] later today. Problem List: 1. CINDI (acute kidney injury) 2. Acute blood loss anemia Pain Ratin Pain Location: - Pain Goal: Pain 4 or less Pain Plan: prn Tomorrow's Labs & Rationales: ICU lab bundle, CBC Plan DVT/Prophylaxis: Nino Correa MD 11/23/17 1519: Attending MD Review Statement Attending Sign Off Attending Cosign Statement: I have: examined this patient, reviewed [facility] EMR data, personally reviewd images, discussd w/resident/PA/STEEL RULE DIE MAKER APPRENTICE, agreed w/resident/PA/STEEL RULE DIE MAKER APPRENTICE. Other Findings: 62M PMH obstructive urophaty with history of prostate surgery and bilateral ureteral stents admitted with symptoms of dyspnea, fatigue, and malaise in the setting of acute renal failure with obstructive uropathy, severe anion gap metabolic acidosis due to uremia and renal failure, metabolic encephalopathy, hypocalcemia, anemia likely secondary to CKD. Had bilateral ureteral stent exchange on 11/22, started hemodialysis on 11/22. Patient is confused today. He had a witnessed seizure in the afternoon, and reportedly has a remote seizure history, for which he takes no medications. He is more awake and alert now. Calcium remains low, uremeia improving, anemia holding steady after transfusion. Plan - Continue in ICU - Follow nephrology and urology recommendations - Monitor CBC, renal function, calcium, magnesium, phosphate - Start Keppra - Obtain CT head - Neuro checks - DVT PPx
--- NOTE | 2017-11-23 12:12 | PN- Nephrology ---
Assessment/Plan Nephrology Assessment: 1. CKD: stage 5 --> due to obstructive uropathy; concerned re ongoing encephalopathy w myoclonus despite HD --> dysequilibrium posy HD possible but would search for other causes including DTs 2. Met acid: improving w HD 3. Hypocalcemia: due to renal failure & hyperphos; on Ca based binder & active Vit D w hi (3 meq/L) Ca dialysate 4. Anemia: stable post transfusion --. continue MIHAELA w HD Suggestion: repeat HD Mon Subjective Subjective: Had 2nd HD this AM w/o problem Confused & disoriented Dry heaves earlier Still having gross hematuria Objective Vital Signs and I&Os Vital Signs Date Time Temp Pulse Resp B/P B/P Pulse O2 O2 Flow FiO2 Mean Ox Delivery Rate 11/23 0800 100 Room Air 11/23 0800 98.6 92 18 120/70 100 Room Air / 0400 95 Room Air / 0000 96 Room Air / 0000 99.4 103 20 118/74 96 Room Air 11/22 1600 100 Room Air / 1600 98.0 111 12 130/60 100 Room Air Intake & Output / 1600 /09 0400 /08 1600 /08 0400 /07 1600 06/07 0400 Intake Total 110 2854 1900 1640 Output Total 245 334 7243 230 350 Balance -555 -230 1404 1670 1290 Intake, Blood 700 Product Intake, IV 2154 1700 1400 Intake, Oral 110 200 240 Number 1 0 0 0 Bowel Movements Output, Urine 092 372 4176 230 350 Patient 213 lb 213 lb 221 lb 180 lb Weight Weight Bed scale Bed scale Reported by Patient Measurement Method Physical Exam General Appearance: well developed/nourished, no apparent distress Head: atraumatic, normal appearance Ears, Nose, Throat: normal ENT inspection Neck: R IJ cath Respiratory: quiet respiration, lungs clear Cardiovascular: regular rate/rhythm, friction rub (none) Abdomen: soft, non-tender Extremities: no edema Neurologic/Psychiatric: + myoclonus & asterixis Skin: intact, normal color Current Medications: Current Medications Sig/James Start time Last Medication Dose Route Stop Time Status Admin Calcitriol 1 MCG MoWeFr 11/22 1400 AC 11/22 IV 1539 Calcium Acetate 2,001 MG WM 11/22 1200 AC 11/23 PO 1121 Epoetin Lizandro 6,000 UNIT MoWeFr 11/22 1359 AC 11/22 IV 1539 Fentanyl Citrate 0 .STK-MED ONE 11/22 1226 DC .ROUTE Magnesium Sulfate 1 GM ONCE ONE 11/23 1145 AC Dextrose/Water 100 ML IV 11/23 1544 Magnesium Sulfate 2 GM .STK-MED ONE 11/22 1819 DC IV 11/22 1820 Midazolam HCl 0 .STK-MED ONE 11/22 1226 DC .ROUTE Pantoprazole Sodium 40 MG DAILY 11/23 0430 AC 11/23 IV 0437 Potassium Chloride 40 MEQ ONCE ONE 11/23 0930 DC 11/23 PO 11/23 930 1129 Potassium Chloride 40 MEQ ONCE ONE 11/22 2045 DC / PO 11/22 2045 204 Promethazine HCl 25 MG ONCE ONE 11/23 0800 CAN PO 11/23 08 Sodium Bicarbonate 150 MEQ Q6H 11/21 1500 DC 11/22 Dextrose/Water 850 ML IV 0939 Trimethobenzamide HCl 200 MG ONCE ONE 11/23 0815 DC IM 11/23 0816 Results Pertinent Lab Results: Laboratory Tests 11/23 11/22 0335 1945 Chemistry Sodium (137 - 145 mmol/L) 142 139 Potassium (3.5 - 5.1 mmol/L) 3.6 3.0 L Chloride (98 - 107 mmol/L) 105 102 Carbon Dioxide (22 - 30 mmol/L) 16 L 16 L Anion Gap (5 - 16) 21 H 21 H BUN (9 - 20 mg/dL) 136 *H 131 *H Creatinine (0.7 - 1.2 mg/dL) 13.8 *H 12.7 *H Estimated GFR (>60 ml/min) 4 L 4 L BUN/Creatinine Ratio (7 - 25 %) 10.3 Glucose (65 - 99 mg/dL) 104 H Calcium (8.4 - 10.2 mg/dL) 5.6 *L 6.2 L Phosphorus (2.5 - 4.5 mg/dL) 7.0 H Magnesium (1.6 - 2.3 mg/dL) 1.7 Total Bilirubin (0.2 - 1.3 mg/dL) 0.5 AST (17 - 59 U/L) 18 ALT (21 - 72 U/L) 18 L Albumin (3.5 - 5.0 g/dL) 3.0 L Hematology CBC w Diff NO MAN DIFF REQ NO MAN DIFF REQ WBC (4.8 - 10.8 /CUMM) 4.4 L 4.5 L RBC (4.70 - 6.10 /CUMM) 2.54 L 2.62 L Hgb (14.0 - 18.0 G/DL) 7.5 L 7.7 L Hct (42 - 52 %) 21.7 L 22.4 L MCV (80.0 - 94.0 FL) 85.7 85.5 MCH (27.0 - 31.0 PG) 29.5 29.3 MCHC (33.0 - 37.0 G/DL) 34.4 34.3 RDW (11.5 - 14.5 %) 16.0 H 15.6 H Plt Count (130 - 400 /CUMM) 99 L 101 L MPV (7.4 - 10.4 FL) 8.7 8.9 Gran % (42.2 - 75.2 %) 77.4 H 82.5 H Lymphocytes % (20.5 - 51.1 %) 9.3 L 6.8 L Monocytes % (1.7 - 9.3 %) 12.5 H 10.2 H Eosinophils % (0 - 5 %) 0.5 0.4 Basophils % (0.0 - 2.0 %) 0.3 0.1 Absolute Granulocytes (1.4 - 6.5 /CUMM) 3.4 3.7 Absolute Lymphocytes (1.2 - 3.4 /CUMM) 0.4 L 0.3 L Absolute Monocytes (0.10 - 0.60 /CUMM) 0.6 0.5 Absolute Eosinophils (0.0 - 0.7 /CUMM) 0 0 Absolute Basophils (0.0 - 0.2 /CUMM) 0 0 11/22 11/22 11/22 11/22 1800 1340 1330 1250 Chemistry Sodium (137 - 145 mmol/L) 140 Potassium (3.5 - 5.1 mmol/L) 3.4 L Chloride (98 - 107 mmol/L) 103 Carbon Dioxide (22 - 30 mmol/L) 10 L Anion Gap (5 - 16) 27 H BUN (9 - 20 mg/dL) 200 *H Creatinine (0.7 - 1.2 mg/dL) 19.6 *H Estimated GFR (>60 ml/min) 2 L Glucose (65 - 99 mg/dL) 119 H Calcium (8.4 - 10.2 mg/dL) Cancelled 5.0 *L Phosphorus (2.5 - 4.5 mg/dL) 9.3 H Magnesium (1.6 - 2.3 mg/dL) 2.0 Total Bilirubin (0.2 - 1.3 mg/dL) 0.3 AST (17 - 59 U/L) 19 ALT (21 - 72 U/L) 16 L Albumin (3.5 - 5.0 g/dL) 2.8 L Serology Hep Bs Antigen Cancelled Hep Bs Antibody (NONREACTIVE) NONREACTIVE 11/22 11/22 11/22 0630 0600 0130 Chemistry Sodium (137 - 145 mmol/L) 139 141 Potassium (3.5 - 5.1 mmol/L) 3.6 4.2 Chloride (98 - 107 mmol/L) 106 107 Carbon Dioxide (22 - 30 mmol/L) 8 *L 6 *L Anion Gap (5 - 16) 25 H 28 H BUN (9 - 20 mg/dL) 210 *H 202 *H Creatinine (0.7 - 1.2 mg/dL) 19.8 *H 20.0 *H Estimated GFR (>60 ml/min) 2 L 2 L Glucose (65 - 99 mg/dL) 116 H 131 H Calcium (8.4 - 10.2 mg/dL) 5.0 *L 5.0 *L Phosphorus (2.5 - 4.5 mg/dL) 9.7 H 9.9 H Magnesium (1.6 - 2.3 mg/dL) 2.3 1.8 Total Bilirubin (0.2 - 1.3 mg/dL) 0.2 0.2 AST (17 - 59 U/L) 18 16 L ALT (21 - 72 U/L) 17 L 16 L Albumin (3.5 - 5.0 g/dL) 2.9 L Cancelled 3.1 L Hematology CBC w Diff NO MAN DIFF REQ Cancelled WBC (4.8 - 10.8 /CUMM) 3.6 L Cancelled RBC (4.70 - 6.10 /CUMM) 1.90 L Cancelled Hgb (14.0 - 18.0 G/DL) 5.7 *L Cancelled Hct (42 - 52 %) 16.7 *L Cancelled MCV (80.0 - 94.0 FL) 87.6 Cancelled MCH (27.0 - 31.0 PG) 30.2 Cancelled MCHC (33.0 - 37.0 G/DL) 34.5 Cancelled RDW (11.5 - 14.5 %) 14.8 H Cancelled Plt Count (130 - 400 /CUMM) 95 L Cancelled MPV (7.4 - 10.4 FL) 9.8 Cancelled Gran % (42.2 - 75.2 %) 75.0 Lymphocytes % (20.5 - 51.1 %) 12.4 L Monocytes % (1.7 - 9.3 %) 11.3 H Eosinophils % (0 - 5 %) 1.1 Basophils % (0.0 - 2.0 %) 0.2 Absolute Granulocytes (1.4 - 6.5 /CUMM) 2.7 Absolute Lymphocytes (1.2 - 3.4 /CUMM) 0.4 L Absolute Monocytes (0.10 - 0.60 /CUMM) 0.4 Absolute Eosinophils (0.0 - 0.7 /CUMM) 0 Absolute Basophils (0.0 - 0.2 /CUMM) 0 /07 11/21 11/21 11/21 1922 1922 1630 1444 Chemistry Sodium (137 - 145 mmol/L) 141 Cancelled Potassium (3.5 - 5.1 mmol/L) 5.2 H Cancelled Chloride (98 - 107 mmol/L) 109 H Cancelled Carbon Dioxide (22 - 30 mmol/L) < 5 *L Cancelled Anion Gap (5 - 16) Cancelled BUN (9 - 20 mg/dL) 205 *H Cancelled Creatinine (0.7 - 1.2 mg/dL) 20.6 *H Cancelled Estimated GFR (>60 ml/min) 2 L BUN/Creatinine Ratio (7 - 25 %) 10.0 Cancelled Glucose (65 - 99 mg/dL) 91 Uric Acid (3.5 - 8.5 mg/dL) 8.8 H Calcium (8.4 - 10.2 mg/dL) 5.0 *L Phosphorus (2.5 - 4.5 mg/dL) 10.7 H Magnesium (1.6 - 2.3 mg/dL) 1.5 L Total Bilirubin (0.2 - 1.3 mg/dL) 0.3 Direct Bilirubin (< 0.4 mg/dL) 0.3 AST (17 - 59 U/L) 16 L ALT (21 - 72 U/L) 19 L Alkaline Phosphatase (< 127 U/L) 74 Creatine Kinase (55 - 170 U/L) 423 H C-Reactive Prot, Quant (<1.0 mg/dL) 5.2 H Total Protein (6.3 - 8.2 g/dL) 6.6 Albumin (3.5 - 5.0 g/dL) 3.5 Immunology Cryoglobulin Interp Pending Toxicology Urine Opiates Screen (>2000 NG/ML) < 100 Methadone Screen (>300 NG/ML) 40 Barbiturate Screen (>200 NG/ML) < 60 Ur Phencyclidine Scrn (>25 NG/ML) < 6.00 Amphetamines Screen (>1000 NG/ML) < 100 U Benzodiazepines Scrn (>200 NG/ML) < 85 Urine Cocaine Screen (>300 NG/ML) < 50 Urine Cannabis Screen (>50 NG/ML) 5.40 Urines Ur Random Creatinine (mg/dL) 44.5 U Random Total Protein (0 - 12 mg/dL) 369 H Ur Random Sodium (30 - 90 mmol/L) 115 H Ur Random Potassium (mmol/L) 10.3 Fraction Sodium Excret (<1% %) 40.3 H 07 06 1415 1300 Immunology ALEXX Titer Cancelled Anti-Nuclear Antibody Cancelled Urines Urine Color (YEL,AMB,STR) BLDY H Urine Clarity (CLEAR) CLDY H Urine pH (5.0 - 8.0) 6.0 Ur Specific [place] (1.001 - 1.035) 1.020 Urine Protein (NEG,<30 MG/DL) >=300 H Urine Ketones (NEG) NEG Urine Nitrite (NEG) POS H Urine Bilirubin (NEG) NEG@ICTO Urine Urobilinogen (0.1 - 1.0 EU/dl) 0.2 Ur Leukocyte Esterase (NEG) LARGE H Ur Microscopic SEDIMENT EXAMINED Urine RBC (0 - 5 /HPF) >75 H Urine WBC (0 - 2 /HPF) > 75 H Ur Epithelial Cells (NONE,FEW) RARE Urine Bacteria (NEG/NONE) MANY H Urine Hemoglobin (NEG) LARGE H Ur Random Creatinine Cancelled Ur Random Sodium Cancelled Ur Random Potassium Cancelled Urine Total Volume Cancelled Ur Total Protein 24 Hr Cancelled Fraction Sodium Excret Cancelled Urine Glucose (N MG/DL) NEG 11/21 11/21 11/21 1255 1250 0819 Chemistry Sodium (137 - 145 mmol/L) Cancelled Cancelled 141 Potassium (3.5 - 5.1 mmol/L) Cancelled Cancelled 5.4 H Chloride (98 - 107 mmol/L) Cancelled Cancelled 108 H Carbon Dioxide (22 - 30 mmol/L) Cancelled Cancelled < 5 *L Anion Gap (5 - 16) Cancelled Cancelled 28.59291 H BUN (9 - 20 mg/dL) Cancelled Cancelled 212 *H Creatinine (0.7 - 1.2 mg/dL) Cancelled Cancelled 22.0 *H Estimated GFR (>60 ml/min) 2 L BUN/Creatinine Ratio (7 - 25 %) Cancelled Cancelled 9.6 Glucose (65 - 99 mg/dL) 123 H Calcium (8.4 - 10.2 mg/dL) 5.6 *L Phosphorus (2.5 - 4.5 mg/dL) 11.8 H Magnesium (1.6 - 2.3 mg/dL) 1.6 Total Bilirubin (0.2 - 1.3 mg/dL) 0.4 AST (17 - 59 U/L) 15 L ALT (21 - 72 U/L) 17 L Alkaline Phosphatase (< 127 U/L) 81 Troponin I (<0.11 ng/ml) 0.01 [id number] Pept (<125 pg/mL) 38539 H Total Protein (6.3 - 8.2 g/dL) 7.4 Albumin (3.5 - 5.0 g/dL) 4.2 Globulin (1.9 - 4.2 gm/dL) 3.2 Albumin/Globulin Ratio (1.1 - 2.2 %) 1.3 TSH (0.270 - 4.200 uIU/mL) 0.800 PTH Intact (18.4 - 80.1 pg/ML) 1446.4 H Coagulation PT (9.4 - 12.5 SEC) 12.4 INR (0.90 - 1.17) 1.14 APTT (25 - 37 SEC) 35 D-Dimer High Sensitivty (0 - 243 ng/ml) 518 H Hematology CBC w Diff NO MAN DIFF REQ WBC (4.8 - 10.8 /CUMM) 7.9 RBC (4.70 - 6.10 /CUMM) 2.71 L Hgb (14.0 - 18.0 G/DL) 8.1 L Hct (42 - 52 %) 24.0 L MCV (80.0 - 94.0 FL) 88.5 MCH (27.0 - 31.0 PG) 30.0 MCHC (33.0 - 37.0 G/DL) 33.9 RDW (11.5 - 14.5 %) 14.9 H Plt Count (130 - 400 /CUMM) 155 MPV (7.4 - 10.4 FL) 8.9 Gran % (42.2 - 75.2 %) 81.9 H Lymphocytes % (20.5 - 51.1 %) 7.3 L Monocytes % (1.7 - 9.3 %) 9.5 H Eosinophils % (0 - 5 %) 0.1 Basophils % (0.0 - 2.0 %) 1.2 Absolute Granulocytes (1.4 - 6.5 /CUMM) 6.5 Absolute Lymphocytes (1.2 - 3.4 /CUMM) 0.6 L Absolute Monocytes (0.10 - 0.60 /CUMM) 0.7 H Absolute Eosinophils (0.0 - 0.7 /CUMM) 0 Absolute Basophils (0.0 - 0.2 /CUMM) 0.1 Serology Hepatitis A IgM Ab (NONREACTIVE) NONREACTIVE Hep Bs Antigen (NONREACTIVE) NONREACTIVE Hep B Core IgM Ab Conf (NONREACTIVE) NONREACTIVE Hepatitis C Antibody (NONREACTIVE) NONREACTIVE 11/22 0714 Chemistry Lactic Acid (0.7 - 2.1 mmol/L) 0.6 L Imaging/Other Studies: Renal US: 1. Bilateral hydronephrosis, right greater than left. 2. Bilateral stents are partially visualized.
--- NOTE | 2017-11-23 13:47 | Event Note ---
Event Note Event Note: WITNESSED SEIZURE: Situation: Nursing staff reported seizure-like activity on the patient. Background: 62 yo male with h/o BPH s/p green light laser surgery with b/l ureteral stent placement ~4 years ago, here with CINDI requring HD x2 and likely seizure disorder (not on meds, no records), had a witnessed seizure episode. Assessment: Patient had a witnessed seizure episode, and differentials are electrolyte disbalance, dialysis dysequilibrium syndrome given his 2nd HD today, seizure disorder precepitated by current metabolic status, undiagnosed brain mass, arrhythmia, among others. His seizure is now complete but the patient is awake but drowsy/post-ictal. He doesn't seem to be able to hold his head strongly. Plan: Vitals stable now (with nasal airway and additional O2). * Airway protection with nasal airway * No benzos required as the seizure has resolved, and the patient is post-ictal- awake but drowsy * STAT: ICU lab bundle, prolactin, CBC, Trop, EKG * Discussed with attending Dr Kunz and also called in neurology consult, and CT head STAT. * Inj Keppra 1000 mg loading dose STAT, will await neurology recs for maintainence dose and furhter evaluation/management. * Family (patient's father - Yosi) notified about the event, to which he added that the patient had seizure in his last admission as well and another one before he came to the hospital this time.
[2017-11-23 14:07] LABS: ABSOLUTE BASOPHIL COUNT 0 /CUMM (0.0-0.2); ABSOLUTE EOSINOPHIL COUNT 0 /CUMM (0.0-0.7); ABSOLUTE GRANULOCYTE CT 6.5 /CUMM (1.4-6.5); ABSOLUTE LYMPH COUNT 1.3 /CUMM (1.2-3.4); BASOPHIL % 0.2 % (0.0-2.0); EOSINOPHIL % 0.1 % (0-5); GRANULOCYTE % 73.5 % (42.2-75.2); HEMATOCRIT 26.2 % (42-52); MEAN CORPUSCULAR HGB 29.8 PG (27.0-31.0); MEAN CORPUSCULAR HGB CONC 34.2 G/DL (33.0-37.0); MEAN CORPUSCULAR VOLUME 87.2 FL (80.0-94.0); MEAN PLATELET VOLUME 9.1 FL (7.4-10.4); PLATELET COUNT 129 /CUMM (130-400); RBC DISTRIBUTION WIDTH 16.3 % (11.5-14.5)
[2017-11-23 14:34] LABS: WHITE BLOOD CELL COUNT 8.8 /CUMM (4.8-10.8)
--- NOTE | 2017-11-23 15:36 | CT SCAN REPORT ---
EXAMINATION: CT HEAD WITHOUT CONTRAST CLINICAL INFORMATION: Seizure. COMPARISON: None TECHNIQUE: Contiguous axial imaging was performed from the skull base to vertex without intravenous administration of contrast. DLP: 624.15 mGy-cm FINDINGS: There is no evidence of acute intracranial hemorrhage or territorial infarction. No abnormal mass effect or midline shift is seen. [place] to white matter differentiation is well preserved. No extra-axial fluid collections are identified. There are subtle intracranial atherosclerotic vascular calcifications. The ventricles are normal in size. There is no abnormal attenuation within the brain parenchyma. The osseous structures and soft tissues are normal. The mastoid air cells and visualized portions of the paranasal sinuses are well aerated. IMPRESSION: No acute intracranial pathology.
[2017-11-23 16:00] VITALS: BP 140/80
--- NOTE | 2017-11-23 18:24 | Cons- Neurology ---
General Information and HPI Consulting Request Date of Consult: 11/23/17 Requested By: Julio Collado MD History of Present Illness: 62-year-old male who had observed seizure in hospital Patient initially admitted November 21 He is unable to give a coherent history and history is obtained from medical records He apparently was at [facility] 4-year-old 4 years ago when he had obstructive uropathy and according to records had seizures He was placed on Depakote at that time according to records but is unclear if he was still taking that medication He is readmitted now to [facility] after several weeks of fatigue nausea vomiting and shortness of breath He was found to have acute renal failure and severe acidosis Today he was noted to have seizure-like activity Patient has no recollection of the event He was then loaded with Keppra 1000 units No recurrence of seizure Allergies/Medications Allergies: Coded Allergies: No Known Allergies (11/21/17) Current Medications: Current Medications Sig/James Start time Last Medication Dose Route Stop Time Status Admin Calcitriol 1 MCG MoWeFr 11/22 1400 AC 11/22 IV 1539 Calcium Acetate 2,001 MG WM 11/22 1200 AC 11/23 PO 1651 Calcium Gluconate 1 GM ONCE ONE 11/23 1415 DC 11/23 Sodium Chloride 100 ML IV 11/23 1514 1430 Epoetin Lizandro 6,000 UNIT MoWeFr 11/22 1359 AC / IV 1539 Levetiracetam 500 MG BID 11/23 2100 AC PO Levetiracetam 1,000 MG ONCE ONE 11/23 1415 DC 11/23 N/A 1 UNIT IV 11/23 1429 1606 Magnesium Sulfate 1 GM ONCE ONE 11/23 1145 DC 11/23 Dextrose/Water 100 ML IV 11/23 1544 1202 Magnesium Sulfate 2 GM .STK-MED ONE 11/22 1819 DC IV 11/22 1820 Pantoprazole Sodium 40 MG DAILY 11/23 0430 AC 11/23 IV 0437 Potassium Chloride 40 MEQ ONCE ONE 11/23 0930 DC 11/23 PO 11/23 0831 1129 Potassium Chloride 40 MEQ ONCE ONE 11/22 2044 DC / PO 11/22 2045 204 Promethazine HCl 25 MG ONCE ONE 11/23 0800 CAN PO 11/23 0801 Trimethobenzamide HCl 200 MG ONCE ONE 11/24 0715 DC IM 06/09 0816 Review of Systems Review of Systems: Patient denies headache, vertigo, difficulty swallowing, chest pain, breathing difficulty, abdominal pain, head injuries, swelling, vomiting However review of systems becoming increasingly unreliable Past History Travel History Traveled to [place] past 21 day No Medical History Neurological: NONE EENT: NONE Cardiovascular: NONE Respiratory: NONE Gastrointestinal: NONE Hepatic: NONE Renal: chronic kidney disease Musculoskeletal: NONE Psychiatric: NONE Endocrine: NONE Blood Disorders: NONE Cancer(s): NONE [employer]/Reproductive: NONE Surgical History Surgical History: non-contributory Family History Relations & Conditions If Any: MOTHER Relation not specified for: FH: lung cancer Psychosocial History Where Do You Live? Home Who Do You Live With? spouse Smoking Status: Current Everyday Smoker ETOH Use: occasional use Illicit Drug Use: denies illicit drug use Functional Ability ADLs Independent: dressing, eating, toileting, bathing. Ambulation: independent IADLs Independent: shopping, housework, finances, food prep, telephone, transportation , medication admin. Exam & Diagnostic Data Vital Signs and I&O Vital Signs Date Time Temp Pulse Resp B/P B/P Pulse O2 O2 Flow FiO2 Mean Ox Delivery Rate 11/23 1600 97 Nasal 4.0L Cannula 11/23 1600 98.6 100 15 140/80 98 Nasal 4.0L Cannula 11/23 1200 97 Room Air 11/23 0800 100 Room Air 11/23 0800 98.6 92 18 120/70 100 Room Air 11/23 0400 95 Room Air / 0000 96 Room Air / 0000 99.4 103 20 118/74 96 Room Air Intake & Output 11/23 1600 / 0800 06/ 0000 Intake Total 260 110 Output Total 400 555 340 Balance -140 -555 -230 Intake, IV 200 Intake, Oral 60 110 Number 1 1 0 Bowel Movements Output, Urine 400 555 340 Patient 213 lb Weight Weight Bed scale Measurement Method Physical Exam: Awake Confused Unable to answer most questions Does not know place or his age or time Heart sounds normal No carotid bruits Distal pulses intact Extraocular movements full Pupils equal reactive Fundi benign Visual parsons difficult to assess No facial weakness or facial sensory loss Palate tongue and shoulders intact Hearing grossly intact Motor examination shows moves all extremities equally Strength grossly intact Tone increased Asterixis bilateral upper extremities No sensory loss to light touch Deep tendon reflexes hypoactive throughout Coordinative functions difficult to assess in view of asterixis Evaluation of gait deferred due to confusion and asterixis Last 48 Hours of Lab Results: Laboratory Tests 11/23 11/23 1340 0335 Chemistry Sodium (137 - 145 mmol/L) 144 142 Potassium (3.5 - 5.1 mmol/L) 3.6 3.6 Chloride (98 - 107 mmol/L) 101 105 Carbon Dioxide (22 - 30 mmol/L) 13 L 16 L Anion Gap (5 - 16) 30 H 21 H BUN (9 - 20 mg/dL) 75 H 136 *H Creatinine (0.7 - 1.2 mg/dL) 9.4 *H 13.8 *H Estimated GFR (>60 ml/min) 6 L 4 L Glucose (65 - 99 mg/dL) 140 H 104 H Calcium (8.4 - 10.2 mg/dL) 7.5 L 5.6 *L Phosphorus (2.5 - 4.5 mg/dL) 6.3 H 7.0 H Magnesium (1.6 - 2.3 mg/dL) 2.3 1.7 Total Bilirubin (0.2 - 1.3 mg/dL) 0.5 0.5 AST (17 - 59 U/L) 22 18 ALT (21 - 72 U/L) 17 L 18 L Albumin (3.5 - 5.0 g/dL) 3.5 3.0 L Hematology CBC w Diff NO MAN DIFF REQ NO MAN DIFF REQ WBC (4.8 - 10.8 /CUMM) 8.8 4.4 L RBC (4.70 - 6.10 /CUMM) 3.00 L 2.54 L Hgb (14.0 - 18.0 G/DL) 8.9 L 7.5 L Hct (42 - 52 %) 26.2 L 21.7 L MCV (80.0 - 94.0 FL) 87.2 85.7 MCH (27.0 - 31.0 PG) 29.8 29.5 MCHC (33.0 - 37.0 G/DL) 34.2 34.4 RDW (11.5 - 14.5 %) 16.3 H 16.0 H Plt Count (130 - 400 /CUMM) 129 L 99 L MPV (7.4 - 10.4 FL) 9.1 8.7 Gran % (42.2 - 75.2 %) 73.5 77.4 H Lymphocytes % (20.5 - 51.1 %) 15.2 L 9.3 L Monocytes % (1.7 - 9.3 %) 11.0 H 12.5 H Eosinophils % (0 - 5 %) 0.1 0.5 Basophils % (0.0 - 2.0 %) 0.2 0.3 Absolute Granulocytes (1.4 - 6.5 /CUMM) 6.5 3.4 Absolute Lymphocytes (1.2 - 3.4 /CUMM) 1.3 0.4 L Absolute Monocytes (0.10 - 0.60 /CUMM) 1.0 H 0.6 Absolute Eosinophils (0.0 - 0.7 /CUMM) 0 0 Absolute Basophils (0.0 - 0.2 /CUMM) 0 0 08 11/22 11/22 1945 1800 1340 Chemistry Sodium (137 - 145 mmol/L) 139 140 Potassium (3.5 - 5.1 mmol/L) 3.0 L 3.4 L Chloride (98 - 107 mmol/L) 102 103 Carbon Dioxide (22 - 30 mmol/L) 16 L 10 L Anion Gap (5 - 16) 21 H 27 H BUN (9 - 20 mg/dL) 131 *H 200 *H Creatinine (0.7 - 1.2 mg/dL) 12.7 *H 19.6 *H Estimated GFR (>60 ml/min) 4 L 2 L BUN/Creatinine Ratio (7 - 25 %) 10.3 Glucose (65 - 99 mg/dL) 119 H Calcium (8.4 - 10.2 mg/dL) 6.2 L Cancelled 5.0 *L Phosphorus (2.5 - 4.5 mg/dL) 9.3 H Magnesium (1.6 - 2.3 mg/dL) 2.0 Total Bilirubin (0.2 - 1.3 mg/dL) 0.3 AST (17 - 59 U/L) 19 ALT (21 - 72 U/L) 16 L Albumin (3.5 - 5.0 g/dL) 2.8 L Hematology CBC w Diff NO MAN DIFF REQ WBC (4.8 - 10.8 /CUMM) 4.5 L RBC (4.70 - 6.10 /CUMM) 2.62 L Hgb (14.0 - 18.0 G/DL) 7.7 L Hct (42 - 52 %) 22.4 L MCV (80.0 - 94.0 FL) 85.5 MCH (27.0 - 31.0 PG) 29.3 MCHC (33.0 - 37.0 G/DL) 34.3 RDW (11.5 - 14.5 %) 15.6 H Plt Count (130 - 400 /CUMM) 101 L MPV (7.4 - 10.4 FL) 8.9 Gran % (42.2 - 75.2 %) 82.5 H Lymphocytes % (20.5 - 51.1 %) 6.8 L Monocytes % (1.7 - 9.3 %) 10.2 H Eosinophils % (0 - 5 %) 0.4 Basophils % (0.0 - 2.0 %) 0.1 Absolute Granulocytes (1.4 - 6.5 /CUMM) 3.7 Absolute Lymphocytes (1.2 - 3.4 /CUMM) 0.3 L Absolute Monocytes (0.10 - 0.60 /CUMM) 0.5 Absolute Eosinophils (0.0 - 0.7 /CUMM) 0 Absolute Basophils (0.0 - 0.2 /CUMM) 0 11/22 11/22 1330 1250 Serology Hep Bs Antigen Cancelled Hep Bs Antibody (NONREACTIVE) NONREACTIVE 11/22 11/22 11/22 0630 0600 0130 Chemistry Sodium (137 - 145 mmol/L) 139 141 Potassium (3.5 - 5.1 mmol/L) 3.6 4.2 Chloride (98 - 107 mmol/L) 106 107 Carbon Dioxide (22 - 30 mmol/L) 8 *L 6 *L Anion Gap (5 - 16) 25 H 28 H BUN (9 - 20 mg/dL) 210 *H 202 *H Creatinine (0.7 - 1.2 mg/dL) 19.8 *H 20.0 *H Estimated GFR (>60 ml/min) 2 L 2 L Glucose (65 - 99 mg/dL) 116 H 131 H Calcium (8.4 - 10.2 mg/dL) 5.0 *L 5.0 *L Phosphorus (2.5 - 4.5 mg/dL) 9.7 H 9.9 H Magnesium (1.6 - 2.3 mg/dL) 2.3 1.8 Total Bilirubin (0.2 - 1.3 mg/dL) 0.2 0.2 AST (17 - 59 U/L) 18 16 L ALT (21 - 72 U/L) 17 L 16 L Albumin (3.5 - 5.0 g/dL) 2.9 L Cancelled 3.1 L Hematology CBC w Diff NO MAN DIFF REQ Cancelled WBC (4.8 - 10.8 /CUMM) 3.6 L Cancelled RBC (4.70 - 6.10 /CUMM) 1.90 L Cancelled Hgb (14.0 - 18.0 G/DL) 5.7 *L Cancelled Hct (42 - 52 %) 16.7 *L Cancelled MCV (80.0 - 94.0 FL) 87.6 Cancelled MCH (27.0 - 31.0 PG) 30.2 Cancelled MCHC (33.0 - 37.0 G/DL) 34.5 Cancelled RDW (11.5 - 14.5 %) 14.8 H Cancelled Plt Count (130 - 400 /CUMM) 95 L Cancelled MPV (7.4 - 10.4 FL) 9.8 Cancelled Gran % (42.2 - 75.2 %) 75.0 Lymphocytes % (20.5 - 51.1 %) 12.4 L Monocytes % (1.7 - 9.3 %) 11.3 H Eosinophils % (0 - 5 %) 1.1 Basophils % (0.0 - 2.0 %) 0.2 Absolute Granulocytes (1.4 - 6.5 /CUMM) 2.7 Absolute Lymphocytes (1.2 - 3.4 /CUMM) 0.4 L Absolute Monocytes (0.10 - 0.60 /CUMM) 0.4 Absolute Eosinophils (0.0 - 0.7 /CUMM) 0 Absolute Basophils (0.0 - 0.2 /CUMM) 0 11/21 11/21 192 192 Chemistry Sodium (137 - 145 mmol/L) 141 Potassium (3.5 - 5.1 mmol/L) 5.2 H Chloride (98 - 107 mmol/L) 109 H Carbon Dioxide (22 - 30 mmol/L) < 5 *L Anion Gap (5 - 16) BUN (9 - 20 mg/dL) 205 *H Creatinine (0.7 - 1.2 mg/dL) 20.6 *H Estimated GFR (>60 ml/min) 2 L BUN/Creatinine Ratio (7 - 25 %) 10.0 Glucose (65 - 99 mg/dL) 91 Uric Acid (3.5 - 8.5 mg/dL) 8.8 H Calcium (8.4 - 10.2 mg/dL) 5.0 *L Phosphorus (2.5 - 4.5 mg/dL) 10.7 H Magnesium (1.6 - 2.3 mg/dL) 1.5 L Total Bilirubin (0.2 - 1.3 mg/dL) 0.3 Direct Bilirubin (< 0.4 mg/dL) 0.3 AST (17 - 59 U/L) 16 L ALT (21 - 72 U/L) 19 L Alkaline Phosphatase (< 127 U/L) 74 Creatine Kinase (55 - 170 U/L) 423 H C-Reactive Prot, Quant (<1.0 mg/dL) 5.2 H Total Protein (6.3 - 8.2 g/dL) 6.6 Albumin (3.5 - 5.0 g/dL) 3.5 Immunology Cryoglobulin Interp Pending Imaging/Other Studies: CT brain: FINDINGS: There is no evidence of acute intracranial hemorrhage or territorial infarction. No abnormal mass effect or midline shift is seen. Stuart to white matter differentiation is well preserved. No extra-axial fluid collections are identified. There are subtle intracranial atherosclerotic vascular calcifications. The ventricles are normal in size. There is no abnormal attenuation within the brain parenchyma. The osseous structures and soft tissues are normal. The mastoid air cells and visualized portions of the paranasal sinuses are well aerated. IMPRESSION: No acute intracranial pathology. Assessment/Plan Assessment: Observed seizure Encephalopathy secondary to renal dysfunction Recommendations: Seizure ay be related to significant metabolic dysfunction; less likely would be seizure disorder Patient did have seizures prior at [facility]; the circumstances are unknown If possible records from [facility] should be retrieved Would continue for the present time levetiracetam, lowering dose to 250 mg twice a day EEG when available Decision regarding possible discontinuation of anticonvulsant will be made in bed a history is available and if EEG does not show epileptiform activities Consult Acknowledgment - Thank you for your consult request.
[2017-11-23 23:59] VITALS: BP 120/76
[2017-11-24 04:34] LABS: ABSOLUTE BASOPHIL COUNT 0 /CUMM (0.0-0.2); ABSOLUTE EOSINOPHIL COUNT 0.1 /CUMM (0.0-0.7); ABSOLUTE LYMPH COUNT 0.5 /CUMM (1.2-3.4); ABSOLUTE MONOCYTE COUNT 0.6 /CUMM (0.10-0.60); BASOPHIL % 0.2 % (0.0-2.0); GRANULOCYTE % 76.6 % (42.2-75.2); HEMATOCRIT 22.5 % (42-52); MEAN CORPUSCULAR HGB 29.4 PG (27.0-31.0); MEAN CORPUSCULAR HGB CONC 33.7 G/DL (33.0-37.0); MEAN CORPUSCULAR VOLUME 87.3 FL (80.0-94.0); PLATELET COUNT 99 /CUMM (130-400); RBC DISTRIBUTION WIDTH 16.1 % (11.5-14.5); RED BLOOD CELL CT 2.57 /CUMM (4.70-6.10); WHITE BLOOD CELL COUNT 5.2 /CUMM (4.8-10.8)
[2017-11-24 08:00] VITALS: BP 110/74
--- NOTE | 2017-11-24 08:23 | PN- Resident CRCU ---
Tristian Kraft 11/24/17 0823: Subjective HPI/CRCU Issues: Uremic encephalopathy Acute on chronic kidney injury Acute blood loss anemia s/p transfusion 2 units PRBC Seizure 24 Hour Events: Seen and examined patient this morning, no overnight events reported. He is alert, oriented and answering questions appropriately. Denies fever, chills, abdominal pain, n/v, dysuria. Family visited and was given an update. Objective Vital Signs & I&O Last 8 Hrs of Vitals and I&O: Microbiology Date/Time Procedure - Status Source Growth 11/21 1913 Surveillance Culture - COMP UPPER RESP 11/21 1913 Surveillance Culture - COMP GI 11/21 1630 Urine Culture - COMP URINE ROUT KLEBSIELLA PNEUMONIAE 11/21 1415 Urine Culture - COMP URINE ROUT KLEBSIELLA PNEUMONIAE Intake & Output 11/24 1600 11/24 0800 11/24 0000 Intake Total 60 280 Output Total 400 450 Balance -340 -170 Intake, IV 100 Intake, Oral 60 180 Number 1 Bowel Movements Output, Urine 400 450 Laboratory Tests 11/24 11/23 11/23 0410 1600 1347 Chemistry Sodium (137 - 145 mmol/L) 142 Cancelled Potassium (3.5 - 5.1 mmol/L) 3.5 Cancelled Chloride (98 - 107 mmol/L) 104 Cancelled Carbon Dioxide (22 - 30 mmol/L) 22 Cancelled Anion Gap (5 - 16) 17 H Cancelled BUN (9 - 20 mg/dL) 85 H Cancelled Creatinine (0.7 - 1.2 mg/dL) 10.2 *H Cancelled Estimated GFR (>60 ml/min) 5 L BUN/Creatinine Ratio Cancelled Glucose (65 - 99 mg/dL) 102 H Calcium (8.4 - 10.2 mg/dL) 6.6 L Phosphorus (2.5 - 4.5 mg/dL) 5.5 H Magnesium (1.6 - 2.3 mg/dL) 2.1 Total Bilirubin (0.2 - 1.3 mg/dL) 0.3 AST (17 - 59 U/L) 16 L ALT (21 - 72 U/L) 15 L Troponin I Cancelled Albumin (3.5 - 5.0 g/dL) 2.9 L Hematology CBC w Diff NO MAN DIFF REQ WBC (4.8 - 10.8 /CUMM) 5.2 RBC (4.70 - 6.10 /CUMM) 2.57 L Hgb (14.0 - 18.0 G/DL) 7.6 L Hct (42 - 52 %) 22.5 L MCV (80.0 - 94.0 FL) 87.3 MCH (27.0 - 31.0 PG) 29.4 MCHC (33.0 - 37.0 G/DL) 33.7 RDW (11.5 - 14.5 %) 16.1 H Plt Count (130 - 400 /CUMM) 99 L MPV (7.4 - 10.4 FL) 9.0 Gran % (42.2 - 75.2 %) 76.6 H Lymphocytes % (20.5 - 51.1 %) 9.6 L Monocytes % (1.7 - 9.3 %) 11.6 H Eosinophils % (0 - 5 %) 2.0 Basophils % (0.0 - 2.0 %) 0.2 Absolute Granulocytes (1.4 - 6.5 /CUMM) 4.0 Absolute Lymphocytes (1.2 - 3.4 /CUMM) 0.5 L Absolute Monocytes (0.10 - 0.60 /CUMM) 0.6 Absolute Eosinophils (0.0 - 0.7 /CUMM) 0.1 Absolute Basophils (0.0 - 0.2 /CUMM) 0 11/23 11/23 1343 1340 Chemistry Sodium (137 - 145 mmol/L) 144 Potassium (3.5 - 5.1 mmol/L) 3.6 Chloride (98 - 107 mmol/L) 101 Carbon Dioxide (22 - 30 mmol/L) 13 L Anion Gap (5 - 16) 30 H BUN (9 - 20 mg/dL) 75 H Creatinine (0.7 - 1.2 mg/dL) 9.4 *H Estimated GFR (>60 ml/min) 6 L Glucose (65 - 99 mg/dL) 140 H Calcium (8.4 - 10.2 mg/dL) 7.5 L Phosphorus (2.5 - 4.5 mg/dL) 6.3 H Magnesium (1.6 - 2.3 mg/dL) 2.3 Total Bilirubin (0.2 - 1.3 mg/dL) 0.5 AST (17 - 59 U/L) 22 ALT (21 - 72 U/L) 17 L Troponin I (<0.11 ng/ml) 0.03 Albumin (3.5 - 5.0 g/dL) 3.5 Prolactin (3.7 - 17.9 ng/mL) Cancelled 40.2 H Hematology CBC w Diff NO MAN DIFF REQ WBC (4.8 - 10.8 /CUMM) 8.8 RBC (4.70 - 6.10 /CUMM) 3.00 L Hgb (14.0 - 18.0 G/DL) 8.9 L Hct (42 - 52 %) 26.2 L MCV (80.0 - 94.0 FL) 87.2 MCH (27.0 - 31.0 PG) 29.8 MCHC (33.0 - 37.0 G/DL) 34.2 RDW (11.5 - 14.5 %) 16.3 H Plt Count (130 - 400 /CUMM) 129 L MPV (7.4 - 10.4 FL) 9.1 Gran % (42.2 - 75.2 %) 73.5 Lymphocytes % (20.5 - 51.1 %) 15.2 L Monocytes % (1.7 - 9.3 %) 11.0 H Eosinophils % (0 - 5 %) 0.1 Basophils % (0.0 - 2.0 %) 0.2 Absolute Granulocytes (1.4 - 6.5 /CUMM) 6.5 Absolute Lymphocytes (1.2 - 3.4 /CUMM) 1.3 Absolute Monocytes (0.10 - 0.60 /CUMM) 1.0 H Absolute Eosinophils (0.0 - 0.7 /CUMM) 0 Absolute Basophils (0.0 - 0.2 /CUMM) 0 Exam General Appearance: no apparent distress, alert, awake, comfortable Respiratory: normal breath sounds, bibasilar fine crackles Cardiovascular: regular rate/rhythm Gastrointestinal: normal bowel sounds, soft, non-tender Extremities: no edema Current Medications: Current Medications Sig/James Start time Last Medication Dose Route Stop Time Status Admin Calcitriol 1 MCG MoWeFr 11/22 1400 AC 11/22 IV 1539 Calcium Acetate 2,001 MG WM 11/22 1200 AC 11/24 PO 0800 Calcium Gluconate 1 GM ONCE ONE 11/23 1415 DC 11/23 Sodium Chloride 100 ML IV 11/23 1514 1430 Ceftriaxone Sodium 1,000 MG DAILY 11/24 0915 AC IV Epoetin Lizandro 6,000 UNIT MoWeFr 11/22 1359 AC 11/22 IV 1539 Levetiracetam 500 MG BID 11/23 2100 DC PO Levetiracetam 250 MG BID 11/23 2100 AC 11/24 PO 0946 Levetiracetam 1,000 MG ONCE ONE 11/23 1415 DC 11/23 N/A 1 UNIT IV 11/23 1429 1606 Lorazepam 2 MG .STK-MED ONE 11/23 1334 DC IM 11/23 1335 Magnesium Sulfate 1 GM ONCE ONE 11/23 1145 DC 11/23 Dextrose/Water 100 ML IV 11/23 1544 1202 Pantoprazole Sodium 40 MG DAILY 11/23 0430 AC 11/24 IV 0943 Potassium Chloride 40 MEQ ONCE ONE 11/24 0800 DC 11/24 PO 11/24 0801 0800 Impression/Plan Impression/Problem List Impression: 62 year old gentleman with h/o BPH s/p green light laser surgery with b/l ureteral stent placement ~4 years ago. 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 Status post cystoscopy, bilateral retrograde pyelogram, bilat. flexible ureteroscopy, bilateral stent exchange and hall placement on 11/21/17. Patient is currently being treated in the ICU for the following issues: RESPIRATORY stable taper supplemental O2 to keep SAT > 90% INFECTIOUS DISEASE afebrile, no leukocytosis urine culture 11/21/17 growing > 100,000 colonies of Klebsiella pneumonia sensitive to ceftriazone will start IV ceftriaxone 1g daily CARDIOLOGY stable HEMATOLOGY stable at 7.6 will continue to montor closely Acute blood loss anemia secondary to gross hematuria after the procedure, on 11/22, his h/h was 5.7/16.7, a drop from 8.1/24.0. S/P 2 units PRBCs. Target Hb is 7. Continue EPO METABOLIC Acute kidney injury/Uremia Hall placement on 11/21/17. Tunneled catheter placed 11/22/17 Appreciate nephrology consultation Corrected Ca 7.5 will continue with calcitriol and Phos Lo ALIMENTARY Renal diet NEPHROLOGY BUN/ creatinine trending up 85/ 10.2 Hemodialysis started on 11/22/17. Next Dialysis per nephro will be on Saturday NEUROLOGY no seizure reported overnight, D/D of invol moments seizure vs myoclonus vs dialysis dysequilibruim syndrome vs 2/2 to uremia and electrolyte disequilibriium CT head showed no acute intracranial pathology EEG pending on Keppra 250 BID neuro on board apprec recomendations. Was brought to my attention by nursing staff the his sister thought he was depressed and that he would benefit from psych consult. Consider psych consult in am. Diet: Renal dialysis diet DVT prophylaxis: ALPS 2/2 to uremia and low plt Code status: Full code IV access: Peripheral Case management issues: workforce advisor will probably to see him on Saturday regarding his insurance. Family updated today Problem List: 1. CINDI (acute kidney injury) 2. Hydronephrosis concurrent with and due to calculi of kidney and ureter 3. ARF (acute renal failure) 4. BPH with obstruction/lower urinary tract symptoms 5. Acute blood loss anemia Pain Ratin Tomorrow's Labs & Rationales: labs with dialysis Plan DVT/Prophylaxis: Nino Correa MD 11/24/17 0911: Attending MD Review Statement Attending Sign Off Attending Cosign Statement: I have: examined this patient, reviewed [facility] EMR data, discussd w/resident/PA/ CONTINUOUS YARN DYEING MACHINE OPERATOR, agreed w/resident/PA/CONTINUOUS YARN DYEING MACHINE OPERATOR. Other Findings: 62M PMH obstructive urophaty with history of prostate surgery and bilateral ureteral stents admitted with symptoms of dyspnea, fatigue, and malaise in the setting of acute renal failure with obstructive uropathy, severe anion gap metabolic acidosis due to uremia and renal failure, metabolic encephalopathy, hypocalcemia, anemia likely secondary to CKD. Had bilateral ureteral stent exchange on 11/22, started hemodialysis on 11/22. No further seizure activity. BUN much improved. Calcium still low. Plan - Continue in ICU - Follow nephrology and urology recommendations - Monitor CBC, renal function, calcium, magnesium, phosphate - Continue Keppra - Neuro checks - DVT PPx
--- NOTE | 2017-11-24 13:57 | PN- Nephrology ---
Assessment/Plan Nephrology Assessment: 1. CKD: stage 5 --> due to obstructive uropathy; no HD need today 2. 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 Met acid: improving w HD 4. Hypocalcemia: due to renal failure & hyperphos; on Ca based binder & active Vit D w hi (3 meq/L) Ca dialysate 5. Anemia: continue MIHAELA w HD Suggestion: Next HD tomorrow Subjective Subjective: Events yesterday noted --> Sz & started Keppra Awake & alert Denies EtOH abuse No uremic sx U/O nonoliguric & less bloody Objective Vital Signs and I&Os Vital Signs Date Time Temp Pulse Resp B/P B/P Pulse O2 O2 Flow FiO2 Mean Ox Delivery Rate 11/24 1200 95 Nasal 1.0L Cannula 11/24 0800 98 Nasal 1.0L Cannula 11/24 0800 98.2 82 12 110/74 97 Nasal 1.0L Cannula 11/24 0400 94 Nasal 1.0L Cannula 11/24 0000 99 Nasal 1.0L Cannula 11/23 2359 97.8 88 14 120/76 99 Nasal 1.0L Cannula 11/23 2000 99 Nasal 2.0L Cannula 11/23 1600 97 Nasal 4.0L Cannula 11/23 1600 98.6 100 15 140/80 98 Nasal 4.0L Cannula Intake & Output 11/24 1600 /10 0400 /09 1600 06/09 0400 06/08 1600 06/08 0400 Intake Total 60 280 890 629 8578 1900 Output Total 400 450 293 175 7317 230 Balance -340 -170 -695 -230 1404 1670 Intake, Blood 700 Product Intake, IV 706 752 7283 1700 Intake, Oral 60 180 60 110 200 Number 1 2 0 0 0 Bowel Movements Output, Urine 400 450 697 445 0024 230 Patient 213 lb 213 lb 221 lb Weight Weight Bed scale Bed scale Measurement Method Physical Exam General Appearance: well developed/nourished, no apparent distress, alert, awake Head: atraumatic, normal appearance Ears, Nose, Throat: normal ENT inspection Neck: R IJ HD cath Respiratory: normal breath sounds, no respiratory distress, quiet respiration, lungs clear Cardiovascular: regular rate/rhythm Abdomen: soft, non-tender Extremities: no edema Neurologic/Psychiatric: awake, alert, 1 beat asterixis, neg [place] Skin: intact, normal color Current Medications: Current Medications Sig/James Start time Last Medication Dose Route Stop Time Status Admin Calcitriol 1 MCG MoWeFr 11/22 1400 AC 11/22 IV 1539 Calcium Acetate 2,001 MG WM 11/22 1200 AC 11/24 PO 0800 Calcium Gluconate 1 GM ONCE ONE 11/23 1415 DC 11/23 Sodium Chloride 100 ML IV 11/23 1514 1430 Ceftriaxone Sodium 1,000 MG DAILY 11/24 0915 AC IV Epoetin Lizandro 6,000 UNIT MoWeFr 11/22 1359 AC 11/22 IV 1539 Levetiracetam 500 MG BID 11/23 2100 DC PO Levetiracetam 250 MG BID 11/23 2100 AC 11/24 PO 0946 Levetiracetam 1,000 MG ONCE ONE 11/23 1415 DC 11/23 N/A 1 UNIT IV 11/23 1429 1606 Magnesium Sulfate 1 GM ONCE ONE 11/23 1145 DC 11/23 Dextrose/Water 100 ML IV 11/23 1544 1202 Pantoprazole Sodium 40 MG DAILY 11/23 0430 AC 11/24 IV 0943 Potassium Chloride 40 MEQ ONCE ONE 11/24 0800 DC 11/24 PO 11/24 0801 0800 Results Pertinent Lab Results: Laboratory Tests 11/24 11/23 11/23 0410 1600 1347 Chemistry Sodium (137 - 145 mmol/L) 142 Cancelled Potassium (3.5 - 5.1 mmol/L) 3.5 Cancelled Chloride (98 - 107 mmol/L) 104 Cancelled Carbon Dioxide (22 - 30 mmol/L) 22 Cancelled Anion Gap (5 - 16) 17 H Cancelled BUN (9 - 20 mg/dL) 85 H Cancelled Creatinine (0.7 - 1.2 mg/dL) 10.2 *H Cancelled Estimated GFR (>60 ml/min) 5 L BUN/Creatinine Ratio Cancelled Glucose (65 - 99 mg/dL) 102 H Calcium (8.4 - 10.2 mg/dL) 6.6 L Phosphorus (2.5 - 4.5 mg/dL) 5.5 H Magnesium (1.6 - 2.3 mg/dL) 2.1 Total Bilirubin (0.2 - 1.3 mg/dL) 0.3 AST (17 - 59 U/L) 16 L ALT (21 - 72 U/L) 15 L Troponin I Cancelled Albumin (3.5 - 5.0 g/dL) 2.9 L Hematology CBC w Diff NO MAN DIFF REQ WBC (4.8 - 10.8 /CUMM) 5.2 RBC (4.70 - 6.10 /CUMM) 2.57 L Hgb (14.0 - 18.0 G/DL) 7.6 L Hct (42 - 52 %) 22.5 L MCV (80.0 - 94.0 FL) 87.3 MCH (27.0 - 31.0 PG) 29.4 MCHC (33.0 - 37.0 G/DL) 33.7 RDW (11.5 - 14.5 %) 16.1 H Plt Count (130 - 400 /CUMM) 99 L MPV (7.4 - 10.4 FL) 9.0 Gran % (42.2 - 75.2 %) 76.6 H Lymphocytes % (20.5 - 51.1 %) 9.6 L Monocytes % (1.7 - 9.3 %) 11.6 H Eosinophils % (0 - 5 %) 2.0 Basophils % (0.0 - 2.0 %) 0.2 Absolute Granulocytes (1.4 - 6.5 /CUMM) 4.0 Absolute Lymphocytes (1.2 - 3.4 /CUMM) 0.5 L Absolute Monocytes (0.10 - 0.60 /CUMM) 0.6 Absolute Eosinophils (0.0 - 0.7 /CUMM) 0.1 Absolute Basophils (0.0 - 0.2 /CUMM) 0 11/23 11/23 1343 1340 Chemistry Sodium (137 - 145 mmol/L) 144 Potassium (3.5 - 5.1 mmol/L) 3.6 Chloride (98 - 107 mmol/L) 101 Carbon Dioxide (22 - 30 mmol/L) 13 L Anion Gap (5 - 16) 30 H BUN (9 - 20 mg/dL) 75 H Creatinine (0.7 - 1.2 mg/dL) 9.4 *H Estimated GFR (>60 ml/min) 6 L Glucose (65 - 99 mg/dL) 140 H Calcium (8.4 - 10.2 mg/dL) 7.5 L Phosphorus (2.5 - 4.5 mg/dL) 6.3 H Magnesium (1.6 - 2.3 mg/dL) 2.3 Total Bilirubin (0.2 - 1.3 mg/dL) 0.5 AST (17 - 59 U/L) 22 ALT (21 - 72 U/L) 17 L Troponin I (<0.11 ng/ml) 0.03 Albumin (3.5 - 5.0 g/dL) 3.5 Prolactin (3.7 - 17.9 ng/mL) Cancelled 40.2 H Hematology CBC w Diff NO MAN DIFF REQ WBC (4.8 - 10.8 /CUMM) 8.8 RBC (4.70 - 6.10 /CUMM) 3.00 L Hgb (14.0 - 18.0 G/DL) 8.9 L Hct (42 - 52 %) 26.2 L MCV (80.0 - 94.0 FL) 87.2 MCH (27.0 - 31.0 PG) 29.8 MCHC (33.0 - 37.0 G/DL) 34.2 RDW (11.5 - 14.5 %) 16.3 H Plt Count (130 - 400 /CUMM) 129 L MPV (7.4 - 10.4 FL) 9.1 Gran % (42.2 - 75.2 %) 73.5 Lymphocytes % (20.5 - 51.1 %) 15.2 L Monocytes % (1.7 - 9.3 %) 11.0 H Eosinophils % (0 - 5 %) 0.1 Basophils % (0.0 - 2.0 %) 0.2 Absolute Granulocytes (1.4 - 6.5 /CUMM) 6.5 Absolute Lymphocytes (1.2 - 3.4 /CUMM) 1.3 Absolute Monocytes (0.10 - 0.60 /CUMM) 1.0 H Absolute Eosinophils (0.0 - 0.7 /CUMM) 0 Absolute Basophils (0.0 - 0.2 /CUMM) 0 11/23 11/22 0335 1945 Chemistry Sodium (137 - 145 mmol/L) 142 139 Potassium (3.5 - 5.1 mmol/L) 3.6 3.0 L Chloride (98 - 107 mmol/L) 105 102 Carbon Dioxide (22 - 30 mmol/L) 16 L 16 L Anion Gap (5 - 16) 21 H 21 H BUN (9 - 20 mg/dL) 136 *H 131 *H Creatinine (0.7 - 1.2 mg/dL) 13.8 *H 12.7 *H Estimated GFR (>60 ml/min) 4 L 4 L BUN/Creatinine Ratio (7 - 25 %) 10.3 Glucose (65 - 99 mg/dL) 104 H Calcium (8.4 - 10.2 mg/dL) 5.6 *L 6.2 L Phosphorus (2.5 - 4.5 mg/dL) 7.0 H Magnesium (1.6 - 2.3 mg/dL) 1.7 Total Bilirubin (0.2 - 1.3 mg/dL) 0.5 AST (17 - 59 U/L) 18 ALT (21 - 72 U/L) 18 L Albumin (3.5 - 5.0 g/dL) 3.0 L Hematology CBC w Diff NO MAN DIFF REQ NO MAN DIFF REQ WBC (4.8 - 10.8 /CUMM) 4.4 L 4.5 L RBC (4.70 - 6.10 /CUMM) 2.54 L 2.62 L Hgb (14.0 - 18.0 G/DL) 7.5 L 7.7 L Hct (42 - 52 %) 21.7 L 22.4 L MCV (80.0 - 94.0 FL) 85.7 85.5 MCH (27.0 - 31.0 PG) 29.5 29.3 MCHC (33.0 - 37.0 G/DL) 34.4 34.3 RDW (11.5 - 14.5 %) 16.0 H 15.6 H Plt Count (130 - 400 /CUMM) 99 L 101 L MPV (7.4 - 10.4 FL) 8.7 8.9 Gran % (42.2 - 75.2 %) 77.4 H 82.5 H Lymphocytes % (20.5 - 51.1 %) 9.3 L 6.8 L Monocytes % (1.7 - 9.3 %) 12.5 H 10.2 H Eosinophils % (0 - 5 %) 0.5 0.4 Basophils % (0.0 - 2.0 %) 0.3 0.1 Absolute Granulocytes (1.4 - 6.5 /CUMM) 3.4 3.7 Absolute Lymphocytes (1.2 - 3.4 /CUMM) 0.4 L 0.3 L Absolute Monocytes (0.10 - 0.60 /CUMM) 0.6 0.5 Absolute Eosinophils (0.0 - 0.7 /CUMM) 0 0 Absolute Basophils (0.0 - 0.2 /CUMM) 0 0 11/22 11/22 11/22 11/22 1800 1340 1330 1250 Chemistry Sodium (137 - 145 mmol/L) 140 Potassium (3.5 - 5.1 mmol/L) 3.4 L Chloride (98 - 107 mmol/L) 103 Carbon Dioxide (22 - 30 mmol/L) 10 L Anion Gap (5 - 16) 27 H BUN (9 - 20 mg/dL) 200 *H Creatinine (0.7 - 1.2 mg/dL) 19.6 *H Estimated GFR (>60 ml/min) 2 L Glucose (65 - 99 mg/dL) 119 H Calcium (8.4 - 10.2 mg/dL) Cancelled 5.0 *L Phosphorus (2.5 - 4.5 mg/dL) 9.3 H Magnesium (1.6 - 2.3 mg/dL) 2.0 Total Bilirubin (0.2 - 1.3 mg/dL) 0.3 AST (17 - 59 U/L) 19 ALT (21 - 72 U/L) 16 L Albumin (3.5 - 5.0 g/dL) 2.8 L Serology Hep Bs Antigen Cancelled Hep Bs Antibody (NONREACTIVE) NONREACTIVE 11/22 11/22 11/22 0630 0600 0130 Chemistry Sodium (137 - 145 mmol/L) 139 141 Potassium (3.5 - 5.1 mmol/L) 3.6 4.2 Chloride (98 - 107 mmol/L) 106 107 Carbon Dioxide (22 - 30 mmol/L) 8 *L 6 *L Anion Gap (5 - 16) 25 H 28 H BUN (9 - 20 mg/dL) 210 *H 202 *H Creatinine (0.7 - 1.2 mg/dL) 19.8 *H 20.0 *H Estimated GFR (>60 ml/min) 2 L 2 L Glucose (65 - 99 mg/dL) 116 H 131 H Calcium (8.4 - 10.2 mg/dL) 5.0 *L 5.0 *L Phosphorus (2.5 - 4.5 mg/dL) 9.7 H 9.9 H Magnesium (1.6 - 2.3 mg/dL) 2.3 1.8 Total Bilirubin (0.2 - 1.3 mg/dL) 0.2 0.2 AST (17 - 59 U/L) 18 16 L ALT (21 - 72 U/L) 17 L 16 L Albumin (3.5 - 5.0 g/dL) 2.9 L Cancelled 3.1 L Hematology CBC w Diff NO MAN DIFF REQ Cancelled WBC (4.8 - 10.8 /CUMM) 3.6 L Cancelled RBC (4.70 - 6.10 /CUMM) 1.90 L Cancelled Hgb (14.0 - 18.0 G/DL) 5.7 *L Cancelled Hct (42 - 52 %) 16.7 *L Cancelled MCV (80.0 - 94.0 FL) 87.6 Cancelled MCH (27.0 - 31.0 PG) 30.2 Cancelled MCHC (33.0 - 37.0 G/DL) 34.5 Cancelled RDW (11.5 - 14.5 %) 14.8 H Cancelled Plt Count (130 - 400 /CUMM) 95 L Cancelled MPV (7.4 - 10.4 FL) 9.8 Cancelled Gran % (42.2 - 75.2 %) 75.0 Lymphocytes % (20.5 - 51.1 %) 12.4 L Monocytes % (1.7 - 9.3 %) 11.3 H Eosinophils % (0 - 5 %) 1.1 Basophils % (0.0 - 2.0 %) 0.2 Absolute Granulocytes (1.4 - 6.5 /CUMM) 2.7 Absolute Lymphocytes (1.2 - 3.4 /CUMM) 0.4 L Absolute Monocytes (0.10 - 0.60 /CUMM) 0.4 Absolute Eosinophils (0.0 - 0.7 /CUMM) 0 Absolute Basophils (0.0 - 0.2 /CUMM) 0 11/21 1922 1630 1444 Chemistry Sodium (137 - 145 mmol/L) 141 Cancelled Potassium (3.5 - 5.1 mmol/L) 5.2 H Cancelled Chloride (98 - 107 mmol/L) 109 H Cancelled Carbon Dioxide (22 - 30 mmol/L) < 5 *L Cancelled Anion Gap (5 - 16) Cancelled BUN (9 - 20 mg/dL) 205 *H Cancelled Creatinine (0.7 - 1.2 mg/dL) 20.6 *H Cancelled Estimated GFR (>60 ml/min) 2 L BUN/Creatinine Ratio (7 - 25 %) 10.0 Cancelled Glucose (65 - 99 mg/dL) 91 Uric Acid (3.5 - 8.5 mg/dL) 8.8 H Calcium (8.4 - 10.2 mg/dL) 5.0 *L Phosphorus (2.5 - 4.5 mg/dL) 10.7 H Magnesium (1.6 - 2.3 mg/dL) 1.5 L Total Bilirubin (0.2 - 1.3 mg/dL) 0.3 Direct Bilirubin (< 0.4 mg/dL) 0.3 AST (17 - 59 U/L) 16 L ALT (21 - 72 U/L) 19 L Alkaline Phosphatase (< 127 U/L) 74 Creatine Kinase (55 - 170 U/L) 423 H C-Reactive Prot, Quant (<1.0 mg/dL) 5.2 H Total Protein (6.3 - 8.2 g/dL) 6.6 Albumin (3.5 - 5.0 g/dL) 3.5 Immunology Cryoglobulin Interp Pending Toxicology Urine Opiates Screen (>2000 NG/ML) < 100 Methadone Screen (>300 NG/ML) 40 Barbiturate Screen (>200 NG/ML) < 60 Ur Phencyclidine Scrn (>25 NG/ML) < 6.00 Amphetamines Screen (>1000 NG/ML) < 100 U Benzodiazepines Scrn (>200 NG/ML) < 85 Urine Cocaine Screen (>300 NG/ML) < 50 Urine Cannabis Screen (>50 NG/ML) 5.40 Urines Ur Random Creatinine (mg/dL) 44.5 U Random Total Protein (0 - 12 mg/dL) 369 H Ur Random Sodium (30 - 90 mmol/L) 115 H Ur Random Potassium (mmol/L) 10.3 Fraction Sodium Excret (<1% %) 40.3 H 06/07 1415 Urines Urine Color (YEL,AMB,STR) BLDY H Urine Clarity (CLEAR) CLDY H Urine pH (5.0 - 8.0) 6.0 Ur Specific [place] (1.001 - 1.035) 1.020 Urine Protein (NEG,<30 MG/DL) >=300 H Urine Ketones (NEG) NEG Urine Nitrite (NEG) POS H Urine Bilirubin (NEG) NEG@ICTO Urine Urobilinogen (0.1 - 1.0 EU/dl) 0.2 Ur Leukocyte Esterase (NEG) LARGE H Ur Microscopic SEDIMENT EXAMINED Urine RBC (0 - 5 /HPF) >75 H Urine WBC (0 - 2 /HPF) > 75 H Ur Epithelial Cells (NONE,FEW) RARE Urine Bacteria (NEG/NONE) MANY H Urine Hemoglobin (NEG) LARGE H Urine Glucose (N MG/DL) NEG Imaging/Other Studies: CT: There is no evidence of acute intracranial hemorrhage or territorial infarction. No abnormal mass effect or midline shift is seen. [place] to white matter differentiation is well preserved. No extra-axial fluid collections are identified. There are subtle intracranial atherosclerotic vascular calcification
[2017-11-24 16:00] VITALS: BP 124/80
[2017-11-25] VITALS: BP 110/70
[2017-11-25 08:00] VITALS: BP 128/64
[2017-11-25 08:09] LABS: ABSOLUTE BASOPHIL COUNT 0 /CUMM (0.0-0.2); ABSOLUTE EOSINOPHIL COUNT 0.4 /CUMM (0.0-0.7); ABSOLUTE GRANULOCYTE CT 4.2 /CUMM (1.4-6.5); ABSOLUTE LYMPH COUNT 0.7 /CUMM (1.2-3.4); ABSOLUTE MONOCYTE COUNT 0.7 /CUMM (0.10-0.60); BASOPHIL % 0.7 % (0.0-2.0); EOSINOPHIL % 6.6 % (0-5); GRANULOCYTE % 69.1 % (42.2-75.2); HEMATOCRIT 23.3 % (42-52); MEAN CORPUSCULAR HGB 29.6 PG (27.0-31.0); MEAN CORPUSCULAR HGB CONC 33.9 G/DL (33.0-37.0); MEAN CORPUSCULAR VOLUME 87.3 FL (80.0-94.0); MEAN PLATELET VOLUME 9.1 FL (7.4-10.4); PLATELET COUNT 113 /CUMM (130-400); RBC DISTRIBUTION WIDTH 15.6 % (11.5-14.5); RED BLOOD CELL CT 2.67 /CUMM (4.70-6.10); WHITE BLOOD CELL COUNT 6.1 /CUMM (4.8-10.8)
--- NOTE | 2017-11-25 08:24 | PN- Housestaff ---
Edis THOMAS,Paul 11/25/17 0824: Subjective Follow-up For: Acute kidney injury possible underlying chronic kidney disease History of seizures, unknown etiology not on antiepileptic Altered electrolyte -hypocalcemia, hyperphosphatemia Anemia of chronic disease possibly chronic kidney disease Complaints: no complaints Subjective: Patient seen and examined at bedside he was not having active complain. We discussed about the future management. We also discussed about his financial situation. He is trying to get involved in [employer] insurance. Review of Systems Constitutional: Denies: no symptoms. Objective Last 24 Hrs of Vital Signs/I&O Vital Signs Date Time Temp Pulse Resp B/P B/P Pulse O2 O2 Flow FiO2 Mean Ox Delivery Rate 11/25 1200 97 Nasal 1.0L Cannula 11/25 0800 97 Nasal 1.0L Cannula 11/25 0800 98.2 86 24 128/64 97 Nasal 1.0L Cannula 11/25 0400 96 Nasal 1.0L Cannula 11/25 0000 98.3 88 20 110/70 97 Nasal 1.0L Cannula 11/25 0000 97 Nasal 1.0L Cannula 11/24 2000 96 Nasal 1.0L Cannula 11/24 1600 96 Nasal 1.0L Cannula 11/24 1600 98.1 87 13 124/80 96 Nasal 1.0L Cannula Intake & Output 11/25 1600 11/25 0800 11/25 0000 Intake Total 100 570 Output Total 665 545 Balance -565 25 Intake, Oral 100 570 Output, Urine 665 545 Patient 98.883 kg Weight Weight Bed scale Measurement Method Physical Exam General Appearance: Alert, Oriented X3, Cooperative, No Acute Distress Skin: No Rashes, No Breakdown Cardiovascular: Normal S1, Normal S2 Lungs: Clear to Auscultation, Normal Air Movement Abdomen: Soft, No Tenderness Extremities: No Clubbing, No Cyanosis, No Edema Assessment/Plan Assessment: Patient is a 62-year-old male with significant past medical history of prostate surgery(3years ago), bilateral ureteral stent? Etiology, seizure disorder not on antiepileptic presented for chief complaints of shortness of breath on exertion. Vital signs-afebrile, pulse 88, respiratory rate 18, normal sinus rhythm, blood pressure 103/63, SPO2 97% on room air. Assessment and plan - Severe anion gap metabolic acidosis due to acute kidney injury secondary to obstructive uropathy including BPH/obstructing ureteral stent, undergoing dialysis - * Patient is undergoing regular dialysis, last dialysis was 11/25/2017 and would have dialysis on 11/27/2017. * His creatinine is showing slight rising trend, we will check the ICU bundle tomorrow. * He was already started on erythropoietin and iron supplementation, phosphorus binder. * We will continue him on renal dialysis diet. Chronic kidney disease under evaluation - * Evidence of anemia, would suggest that he may have had chronic kidney disease. Discussed with Dr. Myers according to him before we diagnosed as chronic kidney disease we will wait for his kidney response for the next 4-6. If the function that recovered then it is acute otherwise it will be chronic kidney disease and he may need continuous hemodialysis. Seizure disorder possibly due to electrolyte imbalance including hypocalcemia, dialysis disequilibrium syndrome, underlying seizure disorder with noncompliance - * We will obtain the records from [facility] * We will continue tablet Keppra 250 mg twice a day * EEG showed evidence of toxic metabolic encephalopathy. Hypocalcemia -recovered -corrected calcium 7.5 with alb of 2.9. He is currently on high calcium dialysis, calcium acetate -phosphate binder, calcitriol injection on Mondays, Saturday and Saturday with dialysis. Chronic anemia -normocytic, normochromic * His hemoglobin is in range of 7-8. Serum iron 48, TIBC 211, ferritin 141. He is having iron deficiency anemia in setting of chronic disease. * We will continue Inj erythropoietin 6000 unit Saturday, Saturday, Saturday * We will start patient on tablet ferrous sulfate 352 mg twice daily. Asymptomatic UTI due to Klebsiella pneumonia- * He is asymptomatic, afebrile and there is no leukocytosis. We will stop antibiotics Diet- Renal dialysis diet DVT prophylaxis-ALPS CODE STATUS -full code Problem List: 1. Acute blood loss anemia 2. BPH with obstruction/lower urinary tract symptoms 3. ARF (acute renal failure) Pain Ratin Pain Location: n/a Pain Goal: Remain pain free Pain Plan: avoid NSAIDS Tomorrow's Labs & Rationales: icu bunbdle for f/u DVT/Prophylaxis: Julio Coles MD 11/25/17 6807: Attending Review Statement Attending Statement Attending MD Statement: examined this patient, discuss w/resident/PA/[employer], agreed w/resident/PA/[employer], reviewed EMR data (avail), discussed with case mgmt, reviewed images, amended to note Attending Assessment/Plan: The patient was seen and discussed with house staff. Appreciate Nephrology follow-up. Having dialysis today and again Monday 11/27. Continue anti-seizure meds. Await records from [facility] in [place] (4 years ago). Continue meds as per Nephrology. OK to transfer to [facility].
--- NOTE | 2017-11-25 09:50 | PN- Nephrology ---
See Addendum Assessment/Plan Nephrology Assessment: CINDI - 2/2 obstructive uropathy. Non-oliguric although remains with severely poor renal function as his SCr uptrended from yesterday to today. ?CKD - I am a bit confused about his history as he was found to have b/l stents that the patient thinks were placed 3-4 years ago possible in the setting of b/l stones or "prostate surgery" - he says he did not know he needed to follow-up in order to have them removed or exchanged. His anemia on presentation suggests that his renal failure has likely been longstanding and advanced. It's unclear to me to what renal function he will recover. I think that repeat imaging to make sure that the obstruction has been relieved. ?Seizure - There is a reported history of a seizure disorder for which he had been on anti-epileptics. Cannot rule out thought that this either was dialysis dysequilibrium syndrome and/or at least lowering of the seizure threshold from removing solute with dialysis, leading to a seizure. Hypocalcemia - 2/2 hyperphosphatemia with CaXPhos precipitation, decreased activation of 25 Vit D to 1,25 Vit D. Once again, a marker of prolonged renal injury. Lab value is 7.5 once corrected for albumin although should note that with significant increase in serum bicarb, this likely lowered his ionized calcium. Is on a high Ca dialysis bath, Ca based binders and IV calcitriol with dialysis. Anemia - a marker of length of renal injury. Is on an MIHAELA. Will check ferritin and iron stores. Suggestion: -Plan for next dialysis on Saturday -Would check repeat Renal US - may need percutaneous nephrostomy tubes if obstruction remains (given that renal function remains so poor) -Cont IV calcitriol with dialysis; calcium acetate 3 tabs with meals, and high Ca bath -Cont Epogen with dialysis - will check ferritin and iron stores -Should get records from [facility] from 3-4 years ago re: hospitalization and follow-up Please call [phone] with ?'s Subjective Subjective: Pt seen and examined on dialysis SCr 10.2->11.3 today 1295cc UOP yesterday (665cc UOP thus far today) No more nausea; no dysgeusia; reports otherwise feeling OK Objective Vital Signs and I&Os Vital Signs Date Time Temp Pulse Resp B/P B/P Pulse O2 O2 Flow FiO2 Mean Ox Delivery Rate 11/25 0800 97 Nasal 1.0L Cannula 11/25 08 98.2 86 24 128/64 97 Nasal 1.0L Cannula 11/25 0400 96 Nasal 1.0L Cannula 11/25 0000 98.3 88 20 110/70 97 Nasal 1.0L Cannula 11/25 0000 97 Nasal 1.0L Cannula 11/24 2000 96 Nasal 1.0L Cannula 11/24 1600 96 Nasal 1.0L Cannula 11/24 1600 98.1 87 13 124/80 96 Nasal 1.0L Cannula 11/24 1200 95 Nasal 1.0L Cannula Intake & Output 11/25 1600 11/25 0400 11/24 1600 11/24 0400 11/23 1600 11/23 0400 Intake Total 124 770 5798 280 260 110 Output Total 665 545 750 450 955 340 Balance -565 25 250 -170 -695 -230 Intake, IV 40 100 200 Intake, Oral 100 570 960 180 60 110 Number 1 2 0 Bowel Movements Output, Urine 665 545 750 450 955 340 Patient 218 lb 213 lb 213 lb Weight Weight Bed scale Bed scale Measurement Method Physical Exam: Gen - NAD HEENT - supple CV - RRR, no m/r/g Chest - clear, no w/r/r Abd - soft, NTND Ext - warm, no edema Neuro - AOX3, grossly nonfocal Access - R chest wall BILL cath Current Medications: Current Medications Sig/James Start time Last Medication Dose Route Stop Time Status Admin Calcitriol 1 MCG MoWeFr 11/22 1400 AC 11/22 IV 1539 Calcium Acetate 2,001 MG WM 11/22 1200 AC 11/24 PO 1751 Ceftriaxone Sodium 1,000 MG DAILY 11/24 0915 AC 11/24 IV 1000 Epoetin Lizandro 6,000 UNIT MoWeFr 11/22 1359 AC 11/22 IV 1539 Levetiracetam 250 MG BID 11/23 2100 AC 11/24 PO 2125 Pantoprazole Sodium 40 MG DAILY 11/23 0430 AC 11/24 IV 0943 Results Pertinent Lab Results: Laboratory Tests 11/25 11/25 0800 0739 Chemistry Sodium (137 - 145 mmol/L) Cancelled 142 Potassium (3.5 - 5.1 mmol/L) Cancelled 3.8 Chloride (98 - 107 mmol/L) Cancelled 104 Carbon Dioxide (22 - 30 mmol/L) Cancelled 22 Anion Gap (5 - 16) Cancelled 16 BUN (9 - 20 mg/dL) Cancelled 104 *H Creatinine (0.7 - 1.2 mg/dL) Cancelled 11.3 *H Estimated GFR (>60 ml/min) 5 L BUN/Creatinine Ratio (7 - 25 %) 9.2 Glucose (65 - 99 mg/dL) Cancelled 100 H Calcium (8.4 - 10.2 mg/dL) Cancelled 6.6 L Phosphorus (2.5 - 4.5 mg/dL) Cancelled 6.7 H Magnesium Cancelled Total Bilirubin Cancelled AST Cancelled ALT Cancelled Albumin Cancelled Hematology CBC w Diff Cancelled NO MAN DIFF REQ WBC (4.8 - 10.8 /CUMM) Cancelled 6.1 RBC (4.70 - 6.10 /CUMM) Cancelled 2.67 L Hgb (14.0 - 18.0 G/DL) Cancelled 7.9 L Hct (42 - 52 %) Cancelled 23.3 L MCV (80.0 - 94.0 FL) Cancelled 87.3 MCH (27.0 - 31.0 PG) Cancelled 29.6 MCHC (33.0 - 37.0 G/DL) Cancelled 33.9 RDW (11.5 - 14.5 %) Cancelled 15.6 H Plt Count (130 - 400 /CUMM) Cancelled 113 L MPV (7.4 - 10.4 FL) Cancelled 9.1 Gran % (42.2 - 75.2 %) 69.1 Lymphocytes % (20.5 - 51.1 %) 11.6 L Monocytes % (1.7 - 9.3 %) 12.0 H Eosinophils % (0 - 5 %) 6.6 H Basophils % (0.0 - 2.0 %) 0.7 Absolute Granulocytes (1.4 - 6.5 /CUMM) 4.2 Absolute Lymphocytes (1.2 - 3.4 /CUMM) 0.7 L Absolute Monocytes (0.10 - 0.60 /CUMM) 0.7 H Absolute Eosinophils (0.0 - 0.7 /CUMM) 0.4 Absolute Basophils (0.0 - 0.2 /CUMM) 0 11/24 11/23 11/23 0410 1600 1347 Chemistry Sodium (137 - 145 mmol/L) 142 Cancelled Potassium (3.5 - 5.1 mmol/L) 3.5 Cancelled Chloride (98 - 107 mmol/L) 104 Cancelled Carbon Dioxide (22 - 30 mmol/L) 22 Cancelled Anion Gap (5 - 16) 17 H Cancelled BUN (9 - 20 mg/dL) 85 H Cancelled Creatinine (0.7 - 1.2 mg/dL) 10.2 *H Cancelled Estimated GFR (>60 ml/min) 5 L BUN/Creatinine Ratio Cancelled Glucose (65 - 99 mg/dL) 102 H Calcium (8.4 - 10.2 mg/dL) 6.6 L Phosphorus (2.5 - 4.5 mg/dL) 5.5 H Magnesium (1.6 - 2.3 mg/dL) 2.1 Total Bilirubin (0.2 - 1.3 mg/dL) 0.3 AST (17 - 59 U/L) 16 L ALT (21 - 72 U/L) 15 L Troponin I Cancelled Albumin (3.5 - 5.0 g/dL) 2.9 L Hematology CBC w Diff NO MAN DIFF REQ WBC (4.8 - 10.8 /CUMM) 5.2 RBC (4.70 - 6.10 /CUMM) 2.57 L Hgb (14.0 - 18.0 G/DL) 7.6 L Hct (42 - 52 %) 22.5 L MCV (80.0 - 94.0 FL) 87.3 MCH (27.0 - 31.0 PG) 29.4 MCHC (33.0 - 37.0 G/DL) 33.7 RDW (11.5 - 14.5 %) 16.1 H Plt Count (130 - 400 /CUMM) 99 L MPV (7.4 - 10.4 FL) 9.0 Gran % (42.2 - 75.2 %) 76.6 H Lymphocytes % (20.5 - 51.1 %) 9.6 L Monocytes % (1.7 - 9.3 %) 11.6 H Eosinophils % (0 - 5 %) 2.0 Basophils % (0.0 - 2.0 %) 0.2 Absolute Granulocytes (1.4 - 6.5 /CUMM) 4.0 Absolute Lymphocytes (1.2 - 3.4 /CUMM) 0.5 L Absolute Monocytes (0.10 - 0.60 /CUMM) 0.6 Absolute Eosinophils (0.0 - 0.7 /CUMM) 0.1 Absolute Basophils (0.0 - 0.2 /CUMM) 0 11/23 11/23 1343 1340 Chemistry Sodium (137 - 145 mmol/L) 144 Potassium (3.5 - 5.1 mmol/L) 3.6 Chloride (98 - 107 mmol/L) 101 Carbon Dioxide (22 - 30 mmol/L) 13 L Anion Gap (5 - 16) 30 H BUN (9 - 20 mg/dL) 75 H Creatinine (0.7 - 1.2 mg/dL) 9.4 *H Estimated GFR (>60 ml/min) 6 L Glucose (65 - 99 mg/dL) 140 H Calcium (8.4 - 10.2 mg/dL) 7.5 L Phosphorus (2.5 - 4.5 mg/dL) 6.3 H Magnesium (1.6 - 2.3 mg/dL) 2.3 Total Bilirubin (0.2 - 1.3 mg/dL) 0.5 AST (17 - 59 U/L) 22 ALT (21 - 72 U/L) 17 L Troponin I (<0.11 ng/ml) 0.03 Albumin (3.5 - 5.0 g/dL) 3.5 Prolactin (3.7 - 17.9 ng/mL) Cancelled 40.2 H Hematology CBC w Diff NO MAN DIFF REQ WBC (4.8 - 10.8 /CUMM) 8.8 RBC (4.70 - 6.10 /CUMM) 3.00 L Hgb (14.0 - 18.0 G/DL) 8.9 L Hct (42 - 52 %) 26.2 L MCV (80.0 - 94.0 FL) 87.2 MCH (27.0 - 31.0 PG) 29.8 MCHC (33.0 - 37.0 G/DL) 34.2 RDW (11.5 - 14.5 %) 16.3 H Plt Count (130 - 400 /CUMM) 129 L MPV (7.4 - 10.4 FL) 9.1 Gran % (42.2 - 75.2 %) 73.5 Lymphocytes % (20.5 - 51.1 %) 15.2 L Monocytes % (1.7 - 9.3 %) 11.0 H Eosinophils % (0 - 5 %) 0.1 Basophils % (0.0 - 2.0 %) 0.2 Absolute Granulocytes (1.4 - 6.5 /CUMM) 6.5 Absolute Lymphocytes (1.2 - 3.4 /CUMM) 1.3 Absolute Monocytes (0.10 - 0.60 /CUMM) 1.0 H Absolute Eosinophils (0.0 - 0.7 /CUMM) 0 Absolute Basophils (0.0 - 0.2 /CUMM) 0 11/23 11/22 0335 1945 Chemistry Sodium (137 - 145 mmol/L) 142 139 Potassium (3.5 - 5.1 mmol/L) 3.6 3.0 L Chloride (98 - 107 mmol/L) 105 102 Carbon Dioxide (22 - 30 mmol/L) 16 L 16 L Anion Gap (5 - 16) 21 H 21 H BUN (9 - 20 mg/dL) 136 *H 131 *H Creatinine (0.7 - 1.2 mg/dL) 13.8 *H 12.7 *H Estimated GFR (>60 ml/min) 4 L 4 L BUN/Creatinine Ratio (7 - 25 %) 10.3 Glucose (65 - 99 mg/dL) 104 H Calcium (8.4 - 10.2 mg/dL) 5.6 *L 6.2 L Phosphorus (2.5 - 4.5 mg/dL) 7.0 H Magnesium (1.6 - 2.3 mg/dL) 1.7 Total Bilirubin (0.2 - 1.3 mg/dL) 0.5 AST (17 - 59 U/L) 18 ALT (21 - 72 U/L) 18 L Albumin (3.5 - 5.0 g/dL) 3.0 L Hematology CBC w Diff NO MAN DIFF REQ NO MAN DIFF REQ WBC (4.8 - 10.8 /CUMM) 4.4 L 4.5 L RBC (4.70 - 6.10 /CUMM) 2.54 L 2.62 L Hgb (14.0 - 18.0 G/DL) 7.5 L 7.7 L Hct (42 - 52 %) 21.7 L 22.4 L MCV (80.0 - 94.0 FL) 85.7 85.5 MCH (27.0 - 31.0 PG) 29.5 29.3 MCHC (33.0 - 37.0 G/DL) 34.4 34.3 RDW (11.5 - 14.5 %) 16.0 H 15.6 H Plt Count (130 - 400 /CUMM) 99 L 101 L MPV (7.4 - 10.4 FL) 8.7 8.9 Gran % (42.2 - 75.2 %) 77.4 H 82.5 H Lymphocytes % (20.5 - 51.1 %) 9.3 L 6.8 L Monocytes % (1.7 - 9.3 %) 12.5 H 10.2 H Eosinophils % (0 - 5 %) 0.5 0.4 Basophils % (0.0 - 2.0 %) 0.3 0.1 Absolute Granulocytes (1.4 - 6.5 /CUMM) 3.4 3.7 Absolute Lymphocytes (1.2 - 3.4 /CUMM) 0.4 L 0.3 L Absolute Monocytes (0.10 - 0.60 /CUMM) 0.6 0.5 Absolute Eosinophils (0.0 - 0.7 /CUMM) 0 0 Absolute Basophils (0.0 - 0.2 /CUMM) 0 0 06/08 06/08 06/08 06/08 1800 1340 1330 1250 Chemistry Sodium (137 - 145 mmol/L) 140 Potassium (3.5 - 5.1 mmol/L) 3.4 L Chloride (98 - 107 mmol/L) 103 Carbon Dioxide (22 - 30 mmol/L) 10 L Anion Gap (5 - 16) 27 H BUN (9 - 20 mg/dL) 200 *H Creatinine (0.7 - 1.2 mg/dL) 19.6 *H Estimated GFR (>60 ml/min) 2 L Glucose (65 - 99 mg/dL) 119 H Calcium (8.4 - 10.2 mg/dL) Cancelled 5.0 *L Phosphorus (2.5 - 4.5 mg/dL) 9.3 H Magnesium (1.6 - 2.3 mg/dL) 2.0 Total Bilirubin (0.2 - 1.3 mg/dL) 0.3 AST (17 - 59 U/L) 19 ALT (21 - 72 U/L) 16 L Albumin (3.5 - 5.0 g/dL) 2.8 L Serology Hep Bs Antigen Cancelled Hep Bs Antibody (NONREACTIVE) NONREACTIVE Imaging/Other Studies: EXAM TYPE: US - US-RENAL/KIDNEY EXAMINATION: US RETROPERITONEAL COMPLETE (RENAL) CLINICAL INFORMATION: Renal failure. COMPARISON: None TECHNIQUE: Real-time imaging of the kidneys and bladder. FINDINGS: RIGHT KIDNEY: 10.5 x 4.7 x 6.2 cm (SAG x AP x TRV). The kidney is normal in size, contour, and echogenicity. Renal cortical thickness is normal. No renal calculi or focal parenchymal lesions. There is moderate right-sided hydronephrosis. Stent is partially visualized.. LEFT KIDNEY: 10 x 4.7 x 4.9 cm (SAG x AP x TRV). Mild increased echogenicity. Renal cortical thickness is normal. Mild Left-sided hydronephrosis. Stent is partly visualized BLADDER: Incompletely distended. Stents. ADDITIONAL FINDINGS: Cholelithiasis. IMPRESSION: 1. Bilateral hydronephrosis, right greater than left. 2. Bilateral stents are partially visualized. Incidental note is made of gallstones.
--- NOTE | 2017-11-25 14:51 | ELECTROENCEPHALOGRAM REPORT ---
Electroencephalogram Report Electroencephalogram Results Date of service: 11/25/17 Attending MD: Julio Collado MD Sign Artist: Day Ashraf EEG Number: [id number] Test Utilizes: 10-20 system, 21 lead 18 channel digital recording Pertinent Hx/Physical/Neuro Findings/Clin Diagnosis: evaluate for seizures Inpatient Medications: Current Medications Sig/James Start time Last Medication Dose Route Stop Time Status Admin Calcitriol 1 MCG MoWeFr 11/22 1400 AC 11/22 IV 1539 Calcium Acetate 2,001 MG WM 11/22 1200 AC 11/25 PO 1151 Ceftriaxone Sodium 1,000 MG DAILY 11/24 0915 DC 11/25 IV 11/26 0901 1151 Epoetin Lizandro 6,000 UNIT MoWeFr 11/22 1359 AC 11/22 IV 1539 Ferrous Gluconate 324 MG BID 11/25 2100 AC PO Ferrous Gluconate 325 MG BID 11/25 1340 DC PO Levetiracetam 250 MG BID 11/23 2100 AC 11/25 PO 1151 Pantoprazole Sodium 40 MG DAILY 11/23 0430 AC 11/25 IV 1151 Interpretation: The waking background is irregular posterior alpha and excessive slower theta intermixed. Much of the record reflects drowsiness or sleep with higher amplitude theta and delta which occasionally has intermittent rhythmic pattern of slowing. No focal or epileptiform abnormalities. Hyperventilation deferred, photic stimulation adds no further information Impression: Abnormal due to moderate generalized slowing with some intermittent rhythmic delta suggesting an active or ongoing toxic-metabolic encephalopathy. No epileptiform activity found.
[2017-11-25 15:45] VITALS: BP 128/66
--- NOTE | 2017-11-25 16:16 | Transfer of Care Summary ---
Hospital Course Course Hospital Course: Patient is a 62-year-old male with significant past medical history of prostate surgery(3years ago), bilateral ureteral stent? Etiology, seizure disorder not on antiepileptic presented for chief complaints of shortness of breath on exertion. ICU course - Severe anion gap metabolic acidosis, hypocalcemia, hyperphosphatemia due to acute kidney injury secondary to obstructive uropathy including BPH/obstructing ureteral stent, undergoing dialysis - On the day of admission, patient was having hematuria and difficult Murillo insertion. We obtained nephrology and urology consult advised for ultrasound and CT abdomen/pelvis which showed evidence bilateral hydronephrosis right greater than the left and bilateral stents. Dr. Burch advised for replacement of ureteral stent and Murillo insertion, done on 11/21/2017. We monitored the patient with ICU, his kidney function did not improved so decided for dialysis. He is undergoing regular dialysis, last dialysis was 11/25/2017 and would have dialysis on 11/27/2017.His creatinine is showing slight rising trend today, we will check the ICU bundle tomorrow.He was already started on erythropoietin and iron supplementation, phosphorus binder.We will continue him on renal dialysis diet. He does not have insurance, we talked to financial compliance manager Ms. Ramey, and it is very difficult for him to get involved and Medicare/Medicaid. We also talked to social media campaign manager Leyla, she told that under [facility] can help him. The plan is to get him some insurance such as [employer]. Chronic kidney disease under evaluation - He was having evidence of anemia, would suggest that he may have had chronic kidney disease. Discussed with Dr. Myers according to him before we diagnosed as chronic kidney disease we will wait for his kidney response for the next 4-6 weeks. If kideney function recovered then it is acute otherwise it will be chronic kidney disease and he may need continuous hemodialysis. Seizure disorder possibly due to electrolyte imbalance including hypocalcemia, dialysis disequilibrium syndrome, underlying seizure disorder with noncompliance - please obtain the records from [facility]. We already sent a request. We will continue patient on tablet Keppra 250mg twice daily. EEG showed evidence of toxic metabolic encephalopathy. Hypocalcemia -recovered -corrected calcium 7.5 with alb of 2.9. He is currently on high calcium dialysis, calcium acetate -phosphate binder, calcitriol injection on Mondays, Saturday and Saturday with dialysis. Chronic anemia -normocytic, normochromic His hemoglobin is in range of 7-8. Serum iron 48, TIBC 211, ferritin 141. He is having iron deficiency anemia in setting of chronic disease.We will continue Inj erythropoietin 6000 unit Saturday, Saturday, Saturday. We started patient on tablet ferrous sulfate 352 mg twice daily. Asymptomatic UTI due to Klebsiella pneumonia- He is asymptomatic, afebrile and there is no leukocytosis. We will stop antibiotics Significant Procedures: Dialysis Cosme catheter Assessment/Plan: 62-year-old male with past medical history of BPH, seizure disorder, bilateral ureteral stent found to have acute kidney injury secondary to obstructed ureteral stent underwent replacement of ureteral stent. He is currently undergoing regular dialysis which has improved his anion gap metabolic acidosis along with hypercalcemia, uremia. During this process he had an episode of seizure, possibly secondary to dialysis disequilibrium syndrome, which was evident on EEG as metabolic encephalopathy. Plan - * Regular dialysis. Next dialysis on . He is having Cosme catheter for now. * He is working on getting new insurance, please talk to Ms. Ramey working in financial department * Please follow CMP on 11/26/2017 * Follow nephrology consult for further management of CINDI * Follow attending note * Please get an appointment with PCP after discharge * Please get the records from the sent by hospital, request is already sent.
--- NOTE | 2017-11-25 21:43 | ULTRASOUND REPORT ---
EXAMINATION: US RETROPERITONEAL COMPLETE (RENAL) CLINICAL INFORMATION: Right-sided hydronephrosis. Left mid. Need to know the improvement in change in size of the kidney. COMPARISON: 11/21/2017 TECHNIQUE: Real-time imaging of the kidneys and bladder. FINDINGS: RIGHT KIDNEY: 10.6 x 4.8 x 5.3 cm (SAG x AP x TRV). The kidney is normal in size, contour, and echogenicity. Renal cortical thickness is normal. No calculi or focal parenchymal lesions. Previously seen hydronephrosis is significantly improved. There is slight prominence of the right renal pelvis but no residual calyceal dilation. LEFT KIDNEY: 9.4 x 4.8 x 3.1 cm (SAG x AP x TRV). There is increased renal cortical echogenicity suggesting medical renal disease. Renal cortical thickness is normal. No calculi or focal parenchymal lesions. The left renal collecting system is fully decompressed. BLADDER: There is a Murillo catheter within a minimally distended urinary bladder. Neither ureteral jet identified. IMPRESSION: Previously seen hydronephrosis is significantly improved. There is slight prominence of the right renal pelvis but no residual calyceal dilation. Previously seen right renal stent no longer seen. The left renal collecting system is fully decompressed. Previously seen left sided stent is no longer seen. There is mildly increased left renal cortical echogenicity suggesting medical renal disease.
[2017-11-25 22:19] VITALS: BP 120/80
[2017-11-26 06:45] VITALS: BP 100/58
--- NOTE | 2017-11-26 07:50 | PN- Housestaff ---
Kalyn Villasenor 11/26/17 0750: Subjective Follow-up For: Acute kidney injury possible underlying chronic kidney disease History of seizures, unknown etiology not on antiepileptic Altered electrolyte -hypocalcemia, hyperphosphatemia Anemia of chronic disease possibly chronic kidney disease Subjective: No complaints or acute events overnight. No seizures reported Review of Systems Constitutional: Reports: see HPI. Objective Last 24 Hrs of Vital Signs/I&O Vital Signs Date Time Temp Pulse Resp B/P B/P Pulse O2 O2 Flow FiO2 Mean Ox Delivery Rate 11/26 0645 98.2 102 20 100/58 94 Room Air 11/25 2219 98.2 105 20 120/80 92 11/25 1809 20 94 Room Air Room Air 11/25 1600 95 Nasal 1.0L Cannula 11/25 1545 98.4 92 20 128/66 95 Nasal 1.0L Cannula 11/25 1200 97 Nasal 1.0L Cannula Intake & Output 11/26 1600 11/26 0800 11/26 0000 Intake Total 720 Output Total 450 320 Balance -450 400 Intake, Oral 720 Number 1 Bowel Movements Output, Urine 450 320 Patient 220 lb 219 lb Weight Weight Bed scale Bed scale Measurement Method Physical Exam General Appearance: Alert, Oriented X3, Cooperative, No Acute Distress HEENT: Atraumatic, PERRLA Cardiovascular: Regular Rate, Normal S1, Normal S2 Lungs: Clear to Auscultation, Normal Air Movement Abdomen: Normal Bowel Sounds, Soft, No Tenderness Current Medications: Current Medications Sig/James Start time Last Medication Dose Route Stop Time Status Admin Calcitriol 1 MCG MoWeFr 11/22 1400 AC 11/22 IV 1539 Calcium Acetate 2,001 MG WM 11/22 1200 AC 11/26 PO 0748 Ceftriaxone Sodium 1,000 MG DAILY 11/24 0915 DC 11/25 IV 11/26 0901 1151 Epoetin Lizandro 6,000 UNIT MoWeFr 11/22 1359 AC / IV 1539 Ferrous Gluconate 324 MG BID 11/25 2100 AC 11/26 PO 0749 Ferrous Gluconate 325 MG BID 11/25 1340 DC PO Levetiracetam 250 MG BID 11/23 2100 AC 11/26 PO 0749 Pantoprazole Sodium 40 MG DAILY 11/23 0430 AC 11/26 IV 0749 Last 24 Hrs of Lab/Jerrod Results Last 24 Hrs of Labs/Mics: Laboratory Tests 11/26/17 0651: Anion Gap 13, Estimated GFR 7 L, Glucose 103 H, Calcium 7.3 L, Phosphorus 5.3 H, Magnesium 1.9, Total Bilirubin 0.3, AST 16 L, ALT 17 L, Albumin 2.9 L Assessment/Plan Assessment: 62-year-old male with significant past medical history of prostate surgery( 3years ago), bilateral ureteral stent? Etiology, seizure disorder not on antiepileptic presented for chief complaints of shortness of breath on exertion. #CINDI on CKD s/p HD tunneled catheter placement #Hypocalemia - 2/2 hyperphosphatemia and RF #Seizures - unclear etiology #BL hydronephrosis s/p stent replacement and hall #AGMA - resolved #AMS - resolved #UTI - ruled out Plan: HD scheduled for Saturday Continue Leviracetam, Calcitriol, Calcium Acetate Continue Epogen Continue Hall F/U with Urologist in [place] upon discharge EEG without epileptiform Ceftriaxone discontinued for suspected UTI DVT ppx: ALPS Code: Full Problem List: 1. CINDI (acute kidney injury) 2. Hydronephrosis concurrent with and due to calculi of kidney and ureter 3. ARF (acute renal failure) Pain Ratin Pain Location: NA Pain Goal: Remain pain free Pain Plan: NA Tomorrow's Labs & Rationales: CBC, BEP Jose Antonio THOMAS,[facility] 11/26/17 1310: Attending MD Review Statement Attending Statement Attending MD Statement: examined this patient, discuss w/resident/PA/LYE PEEL OPERATOR, agreed w/resident/PA/LYE PEEL OPERATOR, reviewed EMR data (avail), discussed with nursing, discussed with case mgmt, reviewed images, amended to note Attending Assessment/Plan: Patient seen and examined, denies any complaints. His creatinine today is at 8.1. Patient is undergoing hemodialysis Saturday. Vital Signs Date Time Temp Pulse Resp B/P B/P Pulse O2 O2 Flow FiO2 Mean Ox Delivery Rate 11/26 0645 98.2 102 20 100/58 94 Room Air 11/25 2219 98.2 105 20 120/80 92 11/25 1809 20 94 Room Air Room Air 11/25 1600 95 Nasal 1.0L Cannula 11/25 1545 98.4 92 20 128/66 95 Nasal 1.0L Cannula on exam; aox3, nad. cv; s1,s2, rrr, dilip cath on right chest. resp; clear abd; soft, nt, bs+ ext; no edema Laboratory Tests 11/26 0651 Chemistry Sodium (137 - 145 mmol/L) 144 Potassium (3.5 - 5.1 mmol/L) 4.0 Chloride (98 - 107 mmol/L) 104 Carbon Dioxide (22 - 30 mmol/L) 27 Anion Gap (5 - 16) 13 BUN (9 - 20 mg/dL) 58 H Creatinine (0.7 - 1.2 mg/dL) 8.1 *H Estimated GFR (>60 ml/min) 7 L Glucose (65 - 99 mg/dL) 103 H Calcium (8.4 - 10.2 mg/dL) 7.3 L Phosphorus (2.5 - 4.5 mg/dL) 5.3 H Magnesium (1.6 - 2.3 mg/dL) 1.9 Total Bilirubin (0.2 - 1.3 mg/dL) 0.3 AST (17 - 59 U/L) 16 L ALT (21 - 72 U/L) 17 L Albumin (3.5 - 5.0 g/dL) 2.9 L A/P; 62 y/o M with pmh sig for prostate surgery(3years ago), bilateral ureteral stent which he did not follow with urologist, seizure disorder admitted with sob , generalized weakness, acute renal failure. Pt is s/p ureteral stent exchange and a Hall catheter placement with Dr. Burch. Currently getting hemodialysis through [place]. Still not declared as chronic renal failure patient. Continue this on the management. Seizures are controlled with Keppra. DVT px; ALPS 2/2 tyo thrombocytopenia.
[2017-11-26 14:19] VITALS: BP 125/57
--- NOTE | 2017-11-26 15:28 | PN- Nephrology ---
Assessment/Plan Nephrology Assessment: CINDI - 2/2 obstructive uropathy. Non-oliguric although remains with severely reduced renal function. ?CKD - I am a bit confused about his history as he was found to have b/l stents that the patient thinks were placed 3-4 years ago possible in the setting of b/l stones or "prostate surgery" - he says he did not know he needed to follow-up in order to have them removed or exchanged. His anemia on presentation suggests that his renal failure has likely been longstanding and advanced. It's unclear to me to what renal function he will recover. The fact that the obstruction was relieved with replacing the stents also suggests that this issue has been longstanding. ?Seizure - There is a reported history of a seizure disorder for which he had been on anti-epileptics. Cannot rule out thought that this either was dialysis dysequilibrium syndrome and/or at least lowering of the seizure threshold from removing solute with dialysis, leading to a seizure. Hypocalcemia - 2/2 hyperphosphatemia with CaXPhos precipitation, decreased activation of 25 Vit D to 1,25 Vit D. Once again, a marker of prolonged renal injury. Is on a high Ca dialysis bath, Ca based binders and IV calcitriol with dialysis. Improving. Anemia - a marker of length of renal injury. Is on an MIHAELA. Functional iron deficiency - would benefit from a course of IV iron. Suggestion: -Plan for next dialysis tomorrow -Cont IV calcitriol with dialysis; calcium acetate 3 tabs with meals, and high Ca bath -Cont Epogen with dialysis - should get 1g course of IV iron (will dose TIW) -Should get records from [place] from 3-4 years ago re: hospitalization and follow-up Please call [phone] with ?'s Subjective Subjective: Pt without complaints 1460cc UOP; hall remains in place [place] significantly improved on renal US Objective Vital Signs and I&Os Vital Signs Date Time Temp Pulse Resp B/P B/P Pulse O2 O2 Flow FiO2 Mean Ox Delivery Rate 11/26 1419 98.2 117 18 125/57 96 Room Air 11/26 0645 98.2 102 20 100/58 94 Room Air 11/25 2219 98.2 105 20 120/80 92 11/25 1809 20 94 Room Air Room Air 11/25 1600 95 Nasal 1.0L Cannula 11/25 1545 98.4 92 20 128/66 95 Nasal 1.0L Cannula Intake & Output 11/26 1600 11/26 0400 11/25 1600 11/25 04011/24 1600 11/24 0400 Intake Total 650 720 133 859 7137 280 Output Total 659 307 2352 545 750 450 Balance -250 400 -400 25 250 -170 Intake, IV 40 40 100 Intake, Oral 650 720 700 570 960 180 Number 1 1 0 1 Bowel Movements Output, Urine 318 287 7904 545 750 450 Patient 220 lb 219 lb Weight Weight Bed scale Bed scale Measurement Method Physical Exam: Gen - NAD HEENT - supple CV - RRR, no m/r/g Chest - clear, no w/r/r Abd - soft, NTND Ext - warm, no edema Neuro - AOX3, grossly nonfocal Access - R chest wall BILL cath Current Medications: Current Medications Sig/James Start time Last Medication Dose Route Stop Time Status Admin Calcitriol 1 MCG MoWeFr 11/22 1400 AC 11/22 IV 1539 Calcium Acetate 2,001 MG WM 11/22 1200 AC 11/26 PO 1119 Epoetin Lizandro 6,000 UNIT MoWeFr 11/22 1359 AC 11/22 IV 1539 Ferrous Gluconate 324 MG BID 11/25 2100 AC 11/26 PO 0749 Levetiracetam 250 MG BID 11/23 2100 AC 11/26 PO 0749 Pantoprazole Sodium 40 MG DAILY 11/23 0430 AC 11/26 IV 0749 Results Pertinent Lab Results: Laboratory Tests 11/26 11/25 11/25 0651 0950 0800 Chemistry Sodium (137 - 145 mmol/L) 144 Cancelled Potassium (3.5 - 5.1 mmol/L) 4.0 Cancelled Chloride (98 - 107 mmol/L) 104 Cancelled Carbon Dioxide (22 - 30 mmol/L) 27 Cancelled Anion Gap (5 - 16) 13 Cancelled BUN (9 - 20 mg/dL) 58 H Cancelled Creatinine (0.7 - 1.2 mg/dL) 8.1 *H Cancelled Estimated GFR (>60 ml/min) 7 L Glucose (65 - 99 mg/dL) 103 H Cancelled Calcium (8.4 - 10.2 mg/dL) 7.3 L Cancelled Phosphorus (2.5 - 4.5 mg/dL) 5.3 H Cancelled Magnesium (1.6 - 2.3 mg/dL) 1.9 Cancelled Iron Cancelled TIBC Cancelled Ferritin Cancelled Total Bilirubin (0.2 - 1.3 mg/dL) 0.3 Cancelled AST (17 - 59 U/L) 16 L Cancelled ALT (21 - 72 U/L) 17 L Cancelled Albumin (3.5 - 5.0 g/dL) 2.9 L Cancelled Hematology CBC w Diff Cancelled WBC Cancelled RBC Cancelled Hgb Cancelled Hct Cancelled MCV Cancelled MCH Cancelled MCHC Cancelled RDW Cancelled Plt Count Cancelled MPV Cancelled 11/25 11/24 1535 1474 Chemistry Sodium (137 - 145 mmol/L) 142 142 Potassium (3.5 - 5.1 mmol/L) 3.8 3.5 Chloride (98 - 107 mmol/L) 104 104 Carbon Dioxide (22 - 30 mmol/L) 22 22 Anion Gap (5 - 16) 16 17 H BUN (9 - 20 mg/dL) 104 *H 85 H Creatinine (0.7 - 1.2 mg/dL) 11.3 *H 10.2 *H Estimated GFR (>60 ml/min) 5 L 5 L BUN/Creatinine Ratio (7 - 25 %) 9.2 Glucose (65 - 99 mg/dL) 100 H 102 H Calcium (8.4 - 10.2 mg/dL) 6.6 L 6.6 L Phosphorus (2.5 - 4.5 mg/dL) 6.7 H 5.5 H Magnesium (1.6 - 2.3 mg/dL) 2.1 Iron (49 - 181 ug/dL) 48 L TIBC (261 - 462 ug/dL) 211 L Ferritin (17.9 - 464 ng/mL) 141.0 Total Bilirubin (0.2 - 1.3 mg/dL) 0.3 AST (17 - 59 U/L) 16 L ALT (21 - 72 U/L) 15 L Albumin (3.5 - 5.0 g/dL) 2.9 L Hematology CBC w Diff NO MAN DIFF REQ NO MAN DIFF REQ WBC (4.8 - 10.8 /CUMM) 6.1 5.2 RBC (4.70 - 6.10 /CUMM) 2.67 L 2.57 L Hgb (14.0 - 18.0 G/DL) 7.9 L 7.6 L Hct (42 - 52 %) 23.3 L 22.5 L MCV (80.0 - 94.0 FL) 87.3 87.3 MCH (27.0 - 31.0 PG) 29.6 29.4 MCHC (33.0 - 37.0 G/DL) 33.9 33.7 RDW (11.5 - 14.5 %) 15.6 H 16.1 H Plt Count (130 - 400 /CUMM) 113 L 99 L MPV (7.4 - 10.4 FL) 9.1 9.0 Gran % (42.2 - 75.2 %) 69.1 76.6 H Lymphocytes % (20.5 - 51.1 %) 11.6 L 9.6 L Monocytes % (1.7 - 9.3 %) 12.0 H 11.6 H Eosinophils % (0 - 5 %) 6.6 H 2.0 Basophils % (0.0 - 2.0 %) 0.7 0.2 Absolute Granulocytes (1.4 - 6.5 /CUMM) 4.2 4.0 Absolute Lymphocytes (1.2 - 3.4 /CUMM) 0.7 L 0.5 L Absolute Monocytes (0.10 - 0.60 /CUMM) 0.7 H 0.6 Absolute Eosinophils (0.0 - 0.7 /CUMM) 0.4 0.1 Absolute Basophils (0.0 - 0.2 /CUMM) 0 0 06/09 1600 Chemistry Sodium Cancelled Potassium Cancelled Chloride Cancelled Carbon Dioxide Cancelled Anion Gap Cancelled BUN Cancelled Creatinine Cancelled BUN/Creatinine Ratio Cancelled Imaging/Other Studies: Renal US IMPRESSION: Previously seen hydronephrosis is significantly improved. There is slight prominence of the right renal pelvis but no residual calyceal dilation. Previously seen right renal stent no longer seen. The left renal collecting system is fully decompressed. Previously seen left sided stent is no longer seen. There is mildly increased left renal cortical echogenicity suggesting medical renal disease.
[2017-11-26 21:47] VITALS: BP 128/86
[2017-11-27 05:45] VITALS: BP 108/54
--- NOTE | 2017-11-27 07:13 | PN- Housestaff ---
Kalyn Villasenor 11/27/17 0713: Subjective Follow-up For: Acute kidney injury possible underlying chronic kidney disease History of seizures, unknown etiology not on antiepileptic Altered electrolyte -hypocalcemia, hyperphosphatemia Anemia of chronic disease possibly chronic kidney disease Subjective: No complaints or acute events overnight. Will have HD this morning Review of Systems Constitutional: Reports: see HPI. Objective Last 24 Hrs of Vital Signs/I&O Vital Signs Date Time Temp Pulse Resp B/P B/P Pulse O2 O2 Flow FiO2 Mean Ox Delivery Rate 11/27 0545 98.4 92 18 108/54 95 Room Air 11/26 2147 98.5 102 18 128/86 95 Room Air 11/26 1419 98.2 117 18 125/57 96 Room Air Intake & Output 11/27 1600 11/27 0800 11/27 0000 Intake Total 240 310 Output Total 450 400 Balance -210 -90 Intake, IV 10 Intake, Oral 240 300 Number 0 Bowel Movements Output, Urine 450 400 Patient 218 lb Weight Weight Bed scale Measurement Method Physical Exam General Appearance: Alert, Oriented X3, Cooperative, No Acute Distress Cardiovascular: Regular Rate, Normal S1, Normal S2 Lungs: Clear to Auscultation, Normal Air Movement Abdomen: Normal Bowel Sounds, Soft, No Tenderness Current Medications: Current Medications Sig/James Start time Last Medication Dose Route Stop Time Status Admin Calcitriol 1 MCG MoWeFr 11/22 1400 AC 11/22 IV 1539 Calcium Acetate 2,001 MG WM 11/22 1200 AC 11/26 PO 1647 Epoetin Lizandro 6,000 UNIT MoWeFr 11/22 1359 AC 11/22 IV 1539 Ferric Sodium 125 MG 11/27 0900 CAN Gluconate Complex IV 12/13 0901 Ferric Sodium 125 MG MoWeFr@00 11/27 0900 AC Gluconate Complex IV 12/13 0959 Sodium Chloride 100 ML Ferrous Gluconate 324 MG BID 11/25 2100 DC 11/26 PO 0749 Levetiracetam 250 MG BID 11/23 2100 AC 11/26 PO 2105 Pantoprazole Sodium 40 MG DAILY 11/23 0430 AC 11/26 IV 0749 Assessment/Plan Assessment: 62-year-old male with significant past medical history of prostate surgery( 3years ago), bilateral ureteral stent? Etiology, seizure disorder not on antiepileptic presented for chief complaints of shortness of breath on exertion. #CINDI on CKD s/p HD tunneled catheter placement #Hypocalemia - 2/2 hyperphosphatemia and RF #Seizures - unclear etiology #BL hydronephrosis s/p stent replacement and hall #AGMA - resolved #AMS - resolved #UTI - ruled out Plan: HD scheduled for today Awaiting records from [place] - faxed 11/27/17 Continue Leviracetam, Calcitriol, Calcium Acetate Continue Epogen Continue Hall F/U with Urologist in [place] upon discharge EEG without epileptiform Ceftriaxone discontinued for suspected UTI DVT ppx: ALPS Code: Full Problem List: 1. CINDI (acute kidney injury) Pain Ratin Pain Location: NA Pain Goal: Remain pain free Pain Plan: NA Tomorrow's Labs & Rationales: CBC, BEP Jose Antonio THOMAS,Naa 11/27/17 1223: Attending MD Review Statement Attending Statement Attending MD Statement: examined this patient, discuss w/resident/PA/BLEND TECHNICIAN, agreed w/resident/PA/BLEND TECHNICIAN, reviewed EMR data (avail), discussed with nursing, discussed with case mgmt, reviewed images, amended to note Attending Assessment/Plan: Patient seen and examined, came from dialysis. Offers no complaints. Patient receiving IV calcitriol as well as phoslo. In addition also getting Epo injections. Vital Signs Date Time Temp Pulse Resp B/P B/P Pulse O2 O2 Flow FiO2 Mean Ox Delivery Rate 11/27 0545 98.4 92 18 108/54 95 Room Air 11/26 2147 98.5 102 18 128/86 95 Room Air 11/26 1419 98.2 117 18 125/57 96 Room Air on exam; aox3, nad. cv; s1, s2, rrr, right sided chest wall cath. resp; clear abd; soft, nt, bs+ ext; no edema Laboratory Tests 11/27 11/27 0725 0600 Chemistry Sodium (137 - 145 mmol/L) 144 Cancelled Potassium (3.5 - 5.1 mmol/L) 3.8 Cancelled Chloride (98 - 107 mmol/L) 104 Cancelled Carbon Dioxide (22 - 30 mmol/L) 27 Cancelled Anion Gap (5 - 16) 13 Cancelled BUN (9 - 20 mg/dL) 72 H Cancelled Creatinine (0.7 - 1.2 mg/dL) 9.7 *H Cancelled Estimated GFR (>60 ml/min) 6 L BUN/Creatinine Ratio (7 - 25 %) 7.4 Cancelled Glucose (65 - 99 mg/dL) 100 H Phosphorus (2.5 - 4.5 mg/dL) 6.2 H Magnesium (1.6 - 2.3 mg/dL) 1.8 Albumin (3.5 - 5.0 g/dL) 3.1 L Hematology CBC w Diff NO MAN DIFF REQ WBC (4.8 - 10.8 /CUMM) 6.6 RBC (4.70 - 6.10 /CUMM) 2.82 L Hgb (14.0 - 18.0 G/DL) 8.3 L Hct (42 - 52 %) 25.1 L MCV (80.0 - 94.0 FL) 88.8 MCH (27.0 - 31.0 PG) 29.5 MCHC (33.0 - 37.0 G/DL) 33.2 RDW (11.5 - 14.5 %) 15.4 H Plt Count (130 - 400 /CUMM) 149 MPV (7.4 - 10.4 FL) 8.9 Gran % (42.2 - 75.2 %) 69.4 Lymphocytes % (20.5 - 51.1 %) 12.4 L Monocytes % (1.7 - 9.3 %) 11.3 H Eosinophils % (0 - 5 %) 6.3 H Basophils % (0.0 - 2.0 %) 0.6 Absolute Granulocytes (1.4 - 6.5 /CUMM) 4.6 Absolute Lymphocytes (1.2 - 3.4 /CUMM) 0.8 L Absolute Monocytes (0.10 - 0.60 /CUMM) 0.7 H Absolute Eosinophils (0.0 - 0.7 /CUMM) 0.4 Absolute Basophils (0.0 - 0.2 /CUMM) 0 A/P; 62 y/o M with pmh sig for prostate surgery(3years ago), bilateral ureteral stent which he did not follow with urologist, seizure disorder admitted with sob , generalized weakness, acute renal failure. Pt is s/p ureteral stent exchange and a Hall catheter placement with Dr. Burch. Currently getting hemodialysis through [facility]. Still not declared as chronic renal failure patient. Continue this on the management. Seizures are controlled with Keppra. DVT px; patient was kept on alps for DVT prophylaxis secondary to trauma cytopenia. Noted improvement in platelet count. If continued to improve then will recommend starting the patient on pharmacologic DVT prophylaxis with heparin subcutaneous.
[2017-11-27 08:24] LABS: ABSOLUTE BASOPHIL COUNT 0 /CUMM (0.0-0.2); ABSOLUTE EOSINOPHIL COUNT 0.4 /CUMM (0.0-0.7); ABSOLUTE GRANULOCYTE CT 4.6 /CUMM (1.4-6.5); ABSOLUTE LYMPH COUNT 0.8 /CUMM (1.2-3.4); ABSOLUTE MONOCYTE COUNT 0.7 /CUMM (0.10-0.60); BASOPHIL % 0.6 % (0.0-2.0); EOSINOPHIL % 6.3 % (0-5); GRANULOCYTE % 69.4 % (42.2-75.2); HEMATOCRIT 25.1 % (42-52); MEAN CORPUSCULAR HGB 29.5 PG (27.0-31.0); MEAN CORPUSCULAR HGB CONC 33.2 G/DL (33.0-37.0); MEAN CORPUSCULAR VOLUME 88.8 FL (80.0-94.0); MEAN PLATELET VOLUME 8.9 FL (7.4-10.4); PLATELET COUNT 149 /CUMM (130-400); RBC DISTRIBUTION WIDTH 15.4 % (11.5-14.5); RED BLOOD CELL CT 2.82 /CUMM (4.70-6.10); WHITE BLOOD CELL COUNT 6.6 /CUMM (4.8-10.8)
--- NOTE | 2017-11-27 12:00 | PN- Nephrology ---
Assessment/Plan Nephrology Assessment: CINDI - 2/2 obstructive uropathy. Non-oliguric although remains with severely reduced renal function. ?CKD - I am a bit confused about his history as he was found to have b/l stents that the patient thinks were placed 3-4 years ago possible in the setting of b/l stones or "prostate surgery" - he says he did not know he needed to follow-up in order to have them removed or exchanged. His anemia on presentation suggests that his renal failure has likely been longstanding and advanced. It's unclear to me to what renal function he will recover. ?Seizure - There is a reported history of a seizure disorder for which he had been on anti-epileptics. Cannot rule out thought that this either was dialysis dysequilibrium syndrome and/or at least lowering of the seizure threshold from removing solute with dialysis, leading to a seizure. At this point, if he were to seize again, it would have no relation to dialysis. Hypocalcemia - 2/2 hyperphosphatemia with CaXPhos precipitation, decreased activation of 25 Vit D to 1,25 Vit D. Once again, a marker of prolonged renal injury. Is on a high Ca dialysis bath, Ca based binders and IV calcitriol with dialysis. Improving. Anemia - a marker of length of renal injury. Is on an MIHAELA. Functional iron deficiency - has been started on IV iron. Suggestion: -Dialysis today -Cont IV calcitriol with dialysis; calcium acetate 3 tabs with meals, and high Ca bath -Cont Epogen with dialysis; 1g course of IV iron (ferrlecit 125mg TIW x8 doses) -Should get records from [place] from 3-4 years ago re: hospitalization and follow-up -Urology follow-up Please call [phone] with ?'s Subjective Subjective: Pt seen and examined on dialysis No somatic complaints 1300cc UOP - hall catheter remains in place SCr uptrending 8.1->9.7 Objective Vital Signs and I&Os Vital Signs Date Time Temp Pulse Resp B/P B/P Pulse O2 O2 Flow FiO2 Mean Ox Delivery Rate 11/27 0545 98.4 92 18 108/54 95 Room Air 11/26 2147 98.5 102 18 128/86 95 Room Air 11/26 1419 98.2 117 18 125/57 96 Room Air Intake & Output 11/27 1600 11/27 0400 11/26 1600 11/26 0400 11/25 1600 11/25 0400 Intake Total 240 310 650 720 740 570 Output Total 450 400 076 508 8507 545 Balance -210 -90 -250 400 -400 25 Intake, IV 10 40 Intake, Oral 240 300 650 720 700 570 Number 0 1 1 0 Bowel Movements Output, Urine 450 400 523 413 1369 545 Patient 218 lb 220 lb 219 lb Weight Weight Bed scale Bed scale Bed scale Measurement Method Physical Exam: Gen - NAD HEENT - supple CV - RRR, no m/r/g Chest - clear, no w/r/r Abd - soft, NTND Ext - warm, no edema Neuro - AOX3, grossly nonfocal Access - R chest wall BILL cath Current Medications: Current Medications Sig/James Start time Last Medication Dose Route Stop Time Status Admin Calcitriol 1 MCG MoWeFr 11/22 1400 AC 11/22 IV 1539 Calcium Acetate 2,001 MG WM 11/22 1200 AC 11/26 PO 1647 Epoetin Lizandro 6,000 UNIT MoWeFr 11/22 1359 AC 11/22 IV 1539 Ferric Sodium 125 MG 11/27 0900 CAN Gluconate Complex IV 12/13 0901 Ferric Sodium 125 MG MoWeFr@0900 11/27 0900 AC Gluconate Complex IV 12/13 0959 Sodium Chloride 100 ML Ferrous Gluconate 324 MG BID 11/25 2100 DC 11/26 PO 0749 Levetiracetam 250 MG BID 11/23 2100 AC 11/26 PO 2105 Pantoprazole Sodium 40 MG DAILY 11/23 0430 AC 11/26 IV 0749 Results Pertinent Lab Results: Laboratory Tests 11/27 11/27 11/26 0725 0600 0651 Chemistry Sodium (137 - 145 mmol/L) 144 Cancelled 144 Potassium (3.5 - 5.1 mmol/L) 3.8 Cancelled 4.0 Chloride (98 - 107 mmol/L) 104 Cancelled 104 Carbon Dioxide (22 - 30 mmol/L) 27 Cancelled 27 Anion Gap (5 - 16) 13 Cancelled 13 BUN (9 - 20 mg/dL) 72 H Cancelled 58 H Creatinine (0.7 - 1.2 mg/dL) 9.7 *H Cancelled 8.1 *H Estimated GFR (>60 ml/min) 6 L 7 L BUN/Creatinine Ratio (7 - 25 %) 7.4 Cancelled Glucose (65 - 99 mg/dL) 100 H 103 H Calcium (8.4 - 10.2 mg/dL) 7.3 L Phosphorus (2.5 - 4.5 mg/dL) 6.2 H 5.3 H Magnesium (1.6 - 2.3 mg/dL) 1.8 1.9 Total Bilirubin (0.2 - 1.3 mg/dL) 0.3 AST (17 - 59 U/L) 16 L ALT (21 - 72 U/L) 17 L Albumin (3.5 - 5.0 g/dL) 3.1 L 2.9 L Hematology CBC w Diff NO MAN DIFF REQ WBC (4.8 - 10.8 /CUMM) 6.6 RBC (4.70 - 6.10 /CUMM) 2.82 L Hgb (14.0 - 18.0 G/DL) 8.3 L Hct (42 - 52 %) 25.1 L MCV (80.0 - 94.0 FL) 88.8 MCH (27.0 - 31.0 PG) 29.5 MCHC (33.0 - 37.0 G/DL) 33.2 RDW (11.5 - 14.5 %) 15.4 H Plt Count (130 - 400 /CUMM) 149 MPV (7.4 - 10.4 FL) 8.9 Gran % (42.2 - 75.2 %) 69.4 Lymphocytes % (20.5 - 51.1 %) 12.4 L Monocytes % (1.7 - 9.3 %) 11.3 H Eosinophils % (0 - 5 %) 6.3 H Basophils % (0.0 - 2.0 %) 0.6 Absolute Granulocytes (1.4 - 6.5 /CUMM) 4.6 Absolute Lymphocytes (1.2 - 3.4 /CUMM) 0.8 L Absolute Monocytes (0.10 - 0.60 /CUMM) 0.7 H Absolute Eosinophils (0.0 - 0.7 /CUMM) 0.4 Absolute Basophils (0.0 - 0.2 /CUMM) 0 11/25 11/25 11/25 0950 0800 0739 Chemistry Sodium (137 - 145 mmol/L) Cancelled 142 Potassium (3.5 - 5.1 mmol/L) Cancelled 3.8 Chloride (98 - 107 mmol/L) Cancelled 104 Carbon Dioxide (22 - 30 mmol/L) Cancelled 22 Anion Gap (5 - 16) Cancelled 16 BUN (9 - 20 mg/dL) Cancelled 104 *H Creatinine (0.7 - 1.2 mg/dL) Cancelled 11.3 *H Estimated GFR (>60 ml/min) 5 L BUN/Creatinine Ratio (7 - 25 %) 9.2 Glucose (65 - 99 mg/dL) Cancelled 100 H Calcium (8.4 - 10.2 mg/dL) Cancelled 6.6 L Phosphorus (2.5 - 4.5 mg/dL) Cancelled 6.7 H Magnesium Cancelled Iron (49 - 181 ug/dL) Cancelled 48 L TIBC (261 - 462 ug/dL) Cancelled 211 L Ferritin (17.9 - 464 ng/mL) Cancelled 141.0 Total Bilirubin Cancelled AST Cancelled ALT Cancelled Albumin Cancelled Hematology CBC w Diff Cancelled NO MAN DIFF REQ WBC (4.8 - 10.8 /CUMM) Cancelled 6.1 RBC (4.70 - 6.10 /CUMM) Cancelled 2.67 L Hgb (14.0 - 18.0 G/DL) Cancelled 7.9 L Hct (42 - 52 %) Cancelled 23.3 L MCV (80.0 - 94.0 FL) Cancelled 87.3 MCH (27.0 - 31.0 PG) Cancelled 29.6 MCHC (33.0 - 37.0 G/DL) Cancelled 33.9 RDW (11.5 - 14.5 %) Cancelled 15.6 H Plt Count (130 - 400 /CUMM) Cancelled 113 L MPV (7.4 - 10.4 FL) Cancelled 9.1 Gran % (42.2 - 75.2 %) 69.1 Lymphocytes % (20.5 - 51.1 %) 11.6 L Monocytes % (1.7 - 9.3 %) 12.0 H Eosinophils % (0 - 5 %) 6.6 H Basophils % (0.0 - 2.0 %) 0.7 Absolute Granulocytes (1.4 - 6.5 /CUMM) 4.2 Absolute Lymphocytes (1.2 - 3.4 /CUMM) 0.7 L Absolute Monocytes (0.10 - 0.60 /CUMM) 0.7 H Absolute Eosinophils (0.0 - 0.7 /CUMM) 0.4 Absolute Basophils (0.0 - 0.2 /CUMM) 0 Imaging/Other Studies: Renal US IMPRESSION: Previously seen hydronephrosis is significantly improved. There is slight prominence of the right renal pelvis but no residual calyceal dilation. Previously seen right renal stent no longer seen. The left renal collecting system is fully decompressed. Previously seen left sided stent is no longer seen. There is mildly increased left renal cortical echogenicity suggesting medical renal disease.
[2017-11-27 14:01] VITALS: BP 118/56
[2017-11-27 21:55] VITALS: BP 96/50
[2017-11-28 06:21] VITALS: BP 102/72
[2017-11-28 07:00] VITALS: BP 100/62
--- NOTE | 2017-11-28 07:35 | PN- Housestaff ---
See Addendum Subjective Follow-up For: Acute kidney injury possible underlying chronic kidney disease History of seizures, unknown etiology not on antiepileptic at home Altered electrolyte -hypocalcemia, hyperphosphatemia Anemia of chronic disease possibly chronic kidney disease Subjective: No complaints or acute events overnight. Hall draining cloudy yellow/ serosanguineous fluid. Review of Systems Constitutional: Reports: see HPI. Objective Last 24 Hrs of Vital Signs/I&O Vital Signs Date Time Temp Pulse Resp B/P B/P Pulse O2 O2 Flow FiO2 Mean Ox Delivery Rate 11/28 0700 98.3 106 20 100/62 94 Room Air 11/28 0621 103 102/72 11/27 2155 98.4 120 20 96/50 92 Room Air 11/27 1401 98.7 114 20 118/56 93 Room Air Intake & Output 11/28 1600 11/28 0800 11/28 0000 Intake Total 480 250 Output Total 475 600 Balance 5 -350 Intake, IV 0 10 Intake, Oral 480 240 Number 0 0 Bowel Movements Output, Urine 475 600 Patient 208 lb Weight Weight Bed scale Measurement Method Physical Exam General Appearance: Alert, Oriented X3, Cooperative, No Acute Distress Cardiovascular: Regular Rate, Normal S1, Normal S2 Lungs: Clear to Auscultation, Normal Air Movement Abdomen: Normal Bowel Sounds, Soft, No Tenderness Current Medications: Current Medications Sig/James Start time Last Medication Dose Route Stop Time Status Admin Calcitriol 1 MCG MoWeFr 11/22 1400 AC 11/27 IV 1408 Calcium Acetate 2,001 MG WM 11/22 1200 AC 11/28 PO 0800 Epoetin Lizandro 6,000 UNIT MoWeFr 11/22 1359 AC 11/27 IV 1403 Ferric Sodium 125 MG MoWeFr@11/27 0900 AC 11/27 Gluconate Complex IV 12/13 0959 1030 Sodium Chloride 100 ML Levetiracetam 250 MG BID 11/23 2100 AC 11/28 PO 0942 Pantoprazole Sodium 40 MG DAILY 11/23 0430 AC 11/28 IV 0943 Assessment/Plan Assessment: 62-year-old male with significant past medical history of prostate surgery( 3years ago), bilateral ureteral stent? Etiology, seizure disorder not on antiepileptic presented for chief complaints of shortness of breath on exertion. #CINDI on CKD s/p HD tunneled catheter placement #Hypocalemia - 2/2 hyperphosphatemia and RF #Seizures - unclear etiology #BL hydronephrosis s/p stent replacement and hall #AGMA - resolved #AMS - resolved #UTI - ruled out Plan: HD done yesterday Awaiting records from [place] - faxed 11/27/17 Continue Leviracetam, Calcitriol, Calcium Acetate Continue Epogen Continue Hall F/U with Urologist in [place] upon discharge EEG without epileptiform Ceftriaxone discontinued for suspected UTI DVT ppx: ALPS Code: Full Problem List: 1. CINDI (acute kidney injury) Pain Ratin Pain Location: NA Pain Goal: Remain pain free Pain Plan: Na Tomorrow's Labs & Rationales: CBC,BEP
--- NOTE | 2017-11-28 11:27 | PN- Nephrology ---
Assessment/Plan Nephrology Assessment: CINDI - 2/2 obstructive uropathy. Non-oliguric although remains with severely reduced renal function. ?CKD - I am a bit confused about his history as he was found to have b/l stents that the patient thinks were placed 3-4 years ago possible in the setting of b/l stones or "prostate surgery" - he says he did not know he needed to follow-up in order to have them removed or exchanged. His anemia on presentation suggests that his renal failure has likely been longstanding and advanced. It's unclear to me to what renal function he will recover. ?Seizure - There is a reported history of a seizure disorder for which he had been on anti-epileptics. Cannot rule out thought that this either was dialysis dysequilibrium syndrome and/or at least lowering of the seizure threshold from removing solute with dialysis, leading to a seizure. At this point, if he were to seize again, it would have no relation to dialysis. Hypocalcemia - 2/2 hyperphosphatemia with CaXPhos precipitation, decreased activation of 25 Vit D to 1,25 Vit D. Once again, a marker of prolonged renal injury. Is on a high Ca dialysis bath, Ca based binders and IV calcitriol with dialysis. Improving. Anemia - a marker of length of renal injury. Is on an MIHAELA. Functional iron deficiency - has been started on IV iron. Suggestion: -Dialysis tomorrow -Cont IV calcitriol with dialysis; calcium acetate 3 tabs with meals, and high Ca bath -Cont Epogen with dialysis; 1g course of IV iron (ferrlecit 125mg TIW x8 doses) -Would try and get SCr at the end of his hospitalization at [facility] -Urology follow-up Will need to f/u BMP prior to dialysis on Saturday - if no clinical improvement, will start process for getting outpatient HD seat (will need insurance) Please call [phone] with ?'s Subjective Subjective: No new labs today No somatic complaints 1400cc UOP - hall in place Objective Vital Signs and I&Os Vital Signs Date Time Temp Pulse Resp B/P B/P Pulse O2 O2 Flow FiO2 Mean Ox Delivery Rate 11/28 0700 98.3 106 20 100/62 94 Room Air 11/28 0621 103 102/72 11/27 2155 98.4 120 20 96/50 92 Room Air 06/13 1401 98.7 114 20 118/56 93 Room Air Intake & Output 11/28 0400 11/27 0400 11/26 0400 Intake Total 480 250 580 310 650 720 Output Total 475 600 800 400 900 320 Balance 5 -350 -220 -90 -250 400 Intake, IV 0 10 10 Intake, Oral 480 240 580 300 650 720 Number 0 0 0 0 1 1 Bowel Movements Output, Urine 475 600 800 400 900 320 Patient 208 lb 208 lb 220 lb 219 lb Weight Weight Bed scale Bed scale Bed scale Bed scale Measurement Method Physical Exam: Gen - NAD HEENT - supple CV - RRR, no m/r/g Chest - clear, no w/r/r Abd - soft, NTND Ext - warm, no edema Neuro - AOX3, grossly nonfocal Access - R chest wall BILL cath Current Medications: Current Medications Sig/James Start time Last Medication Dose Route Stop Time Status Admin Calcitriol 1 MCG MoWeFr 11/22 1400 AC 11/27 IV 1408 Calcium Acetate 2,001 MG WM 11/22 1200 AC 11/28 PO 0800 Epoetin Lizandro 6,000 UNIT MoWeFr 11/22 1359 AC 11/27 IV 1403 Ferric Sodium 125 MG MoWeFr@0900 11/27 0900 AC 11/27 Gluconate Complex IV 12/13 0959 1030 Sodium Chloride 100 ML Levetiracetam 250 MG BID 11/23 2100 AC 11/28 PO 0942 Pantoprazole Sodium 40 MG DAILY 11/23 0430 AC 11/28 IV 0943 Results Pertinent Lab Results: Laboratory Tests 11/27 11/27 11/26 0725 0600 0651 Chemistry Sodium (137 - 145 mmol/L) 144 Cancelled 144 Potassium (3.5 - 5.1 mmol/L) 3.8 Cancelled 4.0 Chloride (98 - 107 mmol/L) 104 Cancelled 104 Carbon Dioxide (22 - 30 mmol/L) 27 Cancelled 27 Anion Gap (5 - 16) 13 Cancelled 13 BUN (9 - 20 mg/dL) 72 H Cancelled 58 H Creatinine (0.7 - 1.2 mg/dL) 9.7 *H Cancelled 8.1 *H Estimated GFR (>60 ml/min) 6 L 7 L BUN/Creatinine Ratio (7 - 25 %) 7.4 Cancelled Glucose (65 - 99 mg/dL) 100 H 103 H Calcium (8.4 - 10.2 mg/dL) 7.3 L Phosphorus (2.5 - 4.5 mg/dL) 6.2 H 5.3 H Magnesium (1.6 - 2.3 mg/dL) 1.8 1.9 Total Bilirubin (0.2 - 1.3 mg/dL) 0.3 AST (17 - 59 U/L) 16 L ALT (21 - 72 U/L) 17 L Albumin (3.5 - 5.0 g/dL) 3.1 L 2.9 L Hematology CBC w Diff NO MAN DIFF REQ Cancelled WBC (4.8 - 10.8 /CUMM) 6.6 Cancelled RBC (4.70 - 6.10 /CUMM) 2.82 L Cancelled Hgb (14.0 - 18.0 G/DL) 8.3 L Cancelled Hct (42 - 52 %) 25.1 L Cancelled MCV (80.0 - 94.0 FL) 88.8 Cancelled MCH (27.0 - 31.0 PG) 29.5 Cancelled MCHC (33.0 - 37.0 G/DL) 33.2 Cancelled RDW (11.5 - 14.5 %) 15.4 H Cancelled Plt Count (130 - 400 /CUMM) 149 Cancelled MPV (7.4 - 10.4 FL) 8.9 Cancelled Gran % (42.2 - 75.2 %) 69.4 Lymphocytes % (20.5 - 51.1 %) 12.4 L Monocytes % (1.7 - 9.3 %) 11.3 H Eosinophils % (0 - 5 %) 6.3 H Basophils % (0.0 - 2.0 %) 0.6 Absolute Granulocytes (1.4 - 6.5 /CUMM) 4.6 Absolute Lymphocytes (1.2 - 3.4 /CUMM) 0.8 L Absolute Monocytes (0.10 - 0.60 /CUMM) 0.7 H Absolute Eosinophils (0.0 - 0.7 /CUMM) 0.4 Absolute Basophils (0.0 - 0.2 /CUMM) 0 Imaging/Other Studies: None new
[2017-11-28 14:13] VITALS: BP 104/70
[2017-11-28 21:59] VITALS: BP 108/66
[2017-11-29 05:21] VITALS: BP 105/52
[2017-11-29 07:52] LABS: ABSOLUTE BASOPHIL COUNT 0 /CUMM (0.0-0.2); ABSOLUTE EOSINOPHIL COUNT 0.4 /CUMM (0.0-0.7); ABSOLUTE GRANULOCYTE CT 5.3 /CUMM (1.4-6.5); ABSOLUTE MONOCYTE COUNT 0.6 /CUMM (0.10-0.60); BASOPHIL % 0.4 % (0.0-2.0); GRANULOCYTE % 72.5 % (42.2-75.2); HEMATOCRIT 26.7 % (42-52); MEAN CORPUSCULAR HGB 29.5 PG (27.0-31.0); MEAN CORPUSCULAR HGB CONC 32.8 G/DL (33.0-37.0); MEAN CORPUSCULAR VOLUME 89.8 FL (80.0-94.0); MEAN PLATELET VOLUME 8.6 FL (7.4-10.4); PLATELET COUNT 162 /CUMM (130-400); RBC DISTRIBUTION WIDTH 15.7 % (11.5-14.5); RED BLOOD CELL CT 2.97 /CUMM (4.70-6.10); WHITE BLOOD CELL COUNT 7.3 /CUMM (4.8-10.8)
--- NOTE | 2017-11-29 08:11 | PN- Housestaff ---
See Addendum Subjective Follow-up For: Acute kidney injury possible underlying chronic kidney disease History of seizures, unknown etiology not on antiepileptic at home Altered electrolyte -hypocalcemia, hyperphosphatemia Anemia of chronic disease possibly chronic kidney disease Subjective: Patient currently in HD. No acute events overnight Review of Systems Constitutional: Reports: see HPI. Objective Last 24 Hrs of Vital Signs/I&O Vital Signs Date Time Temp Pulse Resp B/P B/P Pulse O2 O2 Flow FiO2 Mean Ox Delivery Rate 11/29 0521 98.5 84 20 105/52 95 Room Air 11/28 2159 98.5 106 12 108/66 93 Room Air 11/28 1413 99.0 111 20 104/70 95 Room Air Intake & Output 11/29 1600 11/29 0800 11/29 0000 Intake Total 120 240 Output Total 350 900 Balance -230 -660 Intake, Oral 120 240 Number 2 Bowel Movements Output, Urine 350 900 Patient 202 lb Weight Weight Bed scale Measurement Method Physical Exam General Appearance: Alert, Oriented X3, Cooperative, No Acute Distress Cardiovascular: Regular Rate, Normal S1, Normal S2 Lungs: Clear to Auscultation, Normal Air Movement Abdomen: Normal Bowel Sounds, Soft, No Tenderness Current Medications: Current Medications Sig/James Start time Last Medication Dose Route Stop Time Status Admin Calcitriol 1 MCG MoWeFr 11/22 1400 AC 11/27 IV 1408 Calcium Acetate 2,001 MG WM 11/22 1200 AC 11/28 PO 1555 Epoetin Lizandro 6,000 UNIT MoWeFr 11/22 1359 AC 11/27 IV 1403 Ferric Sodium 125 MG MoWeFr@0900 11/27 0900 AC 11/27 Gluconate Complex IV 12/13 0959 1030 Sodium Chloride 100 ML Levetiracetam 250 MG BID 11/23 2100 AC 11/28 PO 2033 Omeprazole 40 MG DAILY AC 11/29 0822 AC PO Pantoprazole Sodium 40 MG DAILY 11/23 0430 DC 11/28 IV 0943 Last 24 Hrs of Lab/Jerrod Results Last 24 Hrs of Labs/Mics: Laboratory Tests 11/29/17 0639: Anion Gap 13, Estimated GFR 6 L, BUN/Creatinine Ratio 6.7 L, CBC w Diff NO MAN DIFF REQ, RBC 2.97 L, MCV 89.8, MCH 29.5, MCHC 32.8 L, RDW 15.7 H, MPV 8.6, Gran % 72.5, Lymphocytes % 14.0 L, Monocytes % 8.1, Eosinophils % 5.0, Basophils % 0.4, Absolute Granulocytes 5.3, Absolute Lymphocytes 1.0 L, Absolute Monocytes 0.6, Absolute Eosinophils 0.4, Absolute Basophils 0 Assessment/Plan Assessment: 62-year-old male with significant past medical history of prostate surgery( 3years ago), bilateral ureteral stent? Etiology, seizure disorder not on antiepileptic presented for chief complaints of shortness of breath on exertion. #CINDI on CKD s/p HD tunneled catheter placement #Hypocalemia - 2/2 hyperphosphatemia and RF #Seizures - unclear etiology - resolved #BL hydronephrosis s/p stent replacement and hall #AGMA - resolved #AMS - resolved #UTI - ruled out Plan: HD today with plans to monitor CINDI until next week in hopes of not needing longterm dialysis Awaiting records from [place] - faxed 11/27/17 Continue Leviracetam, Calcitriol, Calcium Acetate Continue Epogen Continue Hall F/U with Urologist in [place] upon discharge EEG without epileptiform Ceftriaxone discontinued for suspected UTI Appreciate Neuro recommendations Appreciate Nephro recommendations DVT ppx: ALPS Code: Full Problem List: 1. CINDI (acute kidney injury) 2. Hydronephrosis concurrent with and due to calculi of kidney and ureter Pain Ratin Pain Location: NA Pain Goal: Remain pain free Pain Plan: NA Tomorrow's Labs & Rationales: CBC, BEP
--- NOTE | 2017-11-29 11:57 | PN- Nephrology ---
Assessment/Plan Nephrology Assessment: CINDI - 2/2 obstructive uropathy. Non-oliguric although remains with severely reduced renal function. ?CKD - I am a bit confused about his history as he was found to have b/l stents that the patient thinks were placed 3-4 years ago possible in the setting of b/l stones or "prostate surgery" - he says he did not know he needed to follow-up in order to have them removed or exchanged. His anemia on presentation suggests that his renal failure has likely been longstanding and advanced. It's unclear to me to what renal function he will recover. Records from [facility] pending. ?Seizure - There is a reported history of a seizure disorder for which he had been on anti-epileptics. Cannot rule out thought that this either was dialysis dysequilibrium syndrome and/or at least lowering of the seizure threshold from removing solute with dialysis, leading to a seizure. At this point, if he were to seize again, it would have no relation to dialysis. Hypocalcemia - 2/2 hyperphosphatemia with CaXPhos precipitation, decreased activation of 25 Vit D to 1,25 Vit D. Once again, a marker of prolonged renal injury. Is on a high Ca dialysis bath, Ca based binders and IV calcitriol with dialysis. Much improved - soon may need to back off on some of the calcium supplementation. Anemia - a marker of length of renal injury. Is on an MIHAELA. Functional iron deficiency - has been started on IV iron. Suggestion: -Dialysis today - no UF -Needs daily labs (did not have BMP yesterday) -Cont IV calcitriol with dialysis; calcium acetate 3 tabs with meals, and high Ca bath - monitor Ca - may need to back off on some of these meds in the coming days -Cont Epogen with dialysis; 1g course of IV iron (ferrlecit 125mg TIW x8 doses) -Would try and get SCr at the end of his hospitalization at [facility] -Urology follow-up Will need to f/u BMP prior to dialysis on Saturday - if no clinical improvement, will start process for getting outpatient HD seat (will need insurance) Please call [phone] with ?'s Subjective Subjective: Pt seen and examined on dialysis No somatic complaints 1825cc UOP Objective Vital Signs and I&Os Vital Signs Date Time Temp Pulse Resp B/P B/P Pulse O2 O2 Flow FiO2 Mean Ox Delivery Rate 11/29 0521 98.5 84 20 105/52 95 Room Air 11/28 2159 98.5 106 12 108/66 93 Room Air 11/28 1413 99.0 111 20 104/70 95 Room Air Intake & Output 11/29 1600 11/29 0400 11/28 1600 11/28 0400 11/27 0400 Intake Total 532 274 0749 250 580 310 Output Total 350 900 925 600 800 400 Balance -230 -660 175 -350 -220 -90 Intake, IV 0 10 10 Intake, Oral 390 016 7720 240 580 300 Number 2 0 0 0 0 Bowel Movements Output, Urine 350 900 925 600 800 400 Patient 202 lb 208 lb 208 lb Weight Weight Bed scale Bed scale Bed scale Measurement Method Physical Exam: Gen - NAD HEENT - supple CV - RRR, no m/r/g Chest - clear, no w/r/r Abd - soft, NTND Ext - warm, no edema Neuro - AOX3, grossly nonfocal Access - R chest wall BILL cath Current Medications: Current Medications Sig/James Start time Last Medication Dose Route Stop Time Status Admin Calcitriol 1 MCG MoWeFr 11/22 1400 AC 11/27 IV 1408 Calcium Acetate 2,001 MG WM 11/22 1200 AC 11/28 PO 1555 Epoetin Lizandro 6,000 UNIT MoWeFr 11/22 1359 AC 11/27 IV 1403 Ferric Sodium 125 MG MoWeFr@0900 11/27 0900 AC 11/27 Gluconate Complex IV 12/13 0959 1030 Sodium Chloride 100 ML Levetiracetam 250 MG BID 11/23 2100 AC 11/28 PO 2033 Omeprazole 40 MG DAILY AC 11/29 0822 AC PO Pantoprazole Sodium 40 MG DAILY 11/23 0430 DC 11/28 IV 0943 Results Pertinent Lab Results: Laboratory Tests 11/29 11/27 0639 0725 Chemistry Sodium (137 - 145 mmol/L) 142 144 Potassium (3.5 - 5.1 mmol/L) 4.2 3.8 Chloride (98 - 107 mmol/L) 105 104 Carbon Dioxide (22 - 30 mmol/L) 25 27 Anion Gap (5 - 16) 13 13 BUN (9 - 20 mg/dL) 60 H 72 H Creatinine (0.7 - 1.2 mg/dL) 8.9 *H 9.7 *H Estimated GFR (>60 ml/min) 6 L 6 L BUN/Creatinine Ratio (7 - 25 %) 6.7 L 7.4 Glucose (65 - 99 mg/dL) 96 100 H Calcium (8.4 - 10.2 mg/dL) 8.2 L Phosphorus (2.5 - 4.5 mg/dL) 6.2 H Magnesium (1.6 - 2.3 mg/dL) 1.8 Albumin (3.5 - 5.0 g/dL) 3.1 L Hematology CBC w Diff NO MAN DIFF REQ NO MAN DIFF REQ WBC (4.8 - 10.8 /CUMM) 7.3 6.6 RBC (4.70 - 6.10 /CUMM) 2.97 L 2.82 L Hgb (14.0 - 18.0 G/DL) 8.8 L 8.3 L Hct (42 - 52 %) 26.7 L 25.1 L MCV (80.0 - 94.0 FL) 89.8 88.8 MCH (27.0 - 31.0 PG) 29.5 29.5 MCHC (33.0 - 37.0 G/DL) 32.8 L 33.2 RDW (11.5 - 14.5 %) 15.7 H 15.4 H Plt Count (130 - 400 /CUMM) 162 149 MPV (7.4 - 10.4 FL) 8.6 8.9 Gran % (42.2 - 75.2 %) 72.5 69.4 Lymphocytes % (20.5 - 51.1 %) 14.0 L 12.4 L Monocytes % (1.7 - 9.3 %) 8.1 11.3 H Eosinophils % (0 - 5 %) 5.0 6.3 H Basophils % (0.0 - 2.0 %) 0.4 0.6 Absolute Granulocytes (1.4 - 6.5 /CUMM) 5.3 4.6 Absolute Lymphocytes (1.2 - 3.4 /CUMM) 1.0 L 0.8 L Absolute Monocytes (0.10 - 0.60 /CUMM) 0.6 0.7 H Absolute Eosinophils (0.0 - 0.7 /CUMM) 0.4 0.4 Absolute Basophils (0.0 - 0.2 /CUMM) 0 0 06/13 0600 Chemistry Sodium Cancelled Potassium Cancelled Chloride Cancelled Carbon Dioxide Cancelled Anion Gap Cancelled BUN Cancelled Creatinine Cancelled BUN/Creatinine Ratio Cancelled Hematology CBC w Diff Cancelled WBC Cancelled RBC Cancelled Hgb Cancelled Hct Cancelled MCV Cancelled MCH Cancelled MCHC Cancelled RDW Cancelled Plt Count Cancelled MPV Cancelled Imaging/Other Studies: None new
[2017-11-29 12:46] VITALS: BP 120/64
[2017-11-29 14:36] VITALS: BP 116/60
--- NOTE | 2017-11-29 17:14 | PN- Student ---
Subjective Subjective: Patient reports no problems overnight. Denies fatigue, new episodes of pain, or seizures. No nausea, vomiting, fevers, or chills. He reports that he has been feeling better with his dialysis progress. Objective Objective: General: Patient was resting and appearing well. He answered questions and was well spoken. Heart: Regular rate and rhythm with no rubs, clicks or gallops. Lungs: Clear bilaterally. : Urine observed in hall was light yellow, appeared clear. Results Results: Laboratory Tests 11/29/17 0639: Anion Gap 13, Estimated GFR 6 L, BUN/Creatinine Ratio 6.7 L, Glucose 96, Calcium 8.2 L, CBC w Diff NO MAN DIFF REQ, RBC 2.97 L, MCV 89.8, MCH 29.5, MCHC 32.8 L, RDW 15.7 H, MPV 8.6, Gran % 72.5, Lymphocytes % 14.0 L, Monocytes % 8.1, Eosinophils % 5.0, Basophils % 0.4, Absolute Granulocytes 5.3, Absolute Lymphocytes 1.0 L, Absolute Monocytes 0.6, Absolute Eosinophils 0.4, Absolute Basophils 0 11/27/17 0725: Anion Gap 13, Estimated GFR 6 L, BUN/Creatinine Ratio 7.4, Glucose 100 H, Phosphorus 6.2 H, Magnesium 1.8, Albumin 3.1 L, CBC w Diff NO MAN DIFF REQ, RBC 2.82 L, MCV 88.8, MCH 29.5, MCHC 33.2, RDW 15.4 H, MPV 8.9, Gran % 69.4, Lymphocytes % 12.4 L, Monocytes % 11.3 H, Eosinophils % 6.3 H, Basophils % 0.6, Absolute Granulocytes 4.6, Absolute Lymphocytes 0.8 L, Absolute Monocytes 0.7 H, Absolute Eosinophils 0.4, Absolute Basophils 0 11/27/17 0600: Sodium Cancelled, Potassium Cancelled, Chloride Cancelled, Carbon Dioxide Cancelled, Anion Gap Cancelled, BUN Cancelled, Creatinine Cancelled, BUN/ Creatinine Ratio Cancelled, CBC w Diff Cancelled, WBC Cancelled, RBC Cancelled, Hgb Cancelled, Hct Cancelled, MCV Cancelled, MCH Cancelled, MCHC Cancelled, RDW Cancelled, Plt Count Cancelled, MPV Cancelled Assessment/Plan Assessment: Patient is a 62 year old male with a history of seizures, acute kidney failure that required dialysis in the past, bilaterally uretal stent placement, and BPH. He is unsure of much of the specifics of his medical history and when asked where he had procedures such as the stent placement in the past, he was not entirely sure of the years, hospitals, and length of treatments. His serum creatinine, BUN, calcium, and phosphate laboratory values have been trending with improvement. Plan: Continue with planned dialysis, obtain medical records from [facility] where the patient states that he has been treated. Continue with Calcitriol and Calcium Acetate for calcium and phosphate level improvement. Continue Leviracetam for seizure prophylaxis. Continue Epogen and Ferric Sodium Gluconate for anemia. Continue Omeprazole. Monitor patient for improvement and for changes regarding seizure and renal status.
[2017-11-29 21:39] VITALS: BP 150/76
--- NOTE | 2017-11-30 05:35 | PN- Housestaff ---
See Addendum Subjective Follow-up For: Acute kidney injury possible underlying chronic kidney disease History of seizures, unknown etiology not on antiepileptic at home Altered electrolyte -hypocalcemia, hyperphosphatemia Anemia of chronic disease possibly chronic kidney disease Subjective: No complaints or acute events overnight. Patient received dialysis yesterday. Parents at bedside were updated on patient's clinical status. Review of Systems Constitutional: Reports: see HPI. Objective Last 24 Hrs of Vital Signs/I&O Vital Signs Date Time Temp Pulse Resp B/P B/P Pulse O2 O2 Flow FiO2 Mean Ox Delivery Rate 11/30 0630 98.2 90 20 140/60 94 Room Air 11/29 2139 98.3 125 150/76 95 Room Air 11/29 1723 98 11/29 1436 119 11/29 1436 98.4 119 20 116/60 92 Room Air 11/29 1246 98.0 92 18 120/64 95 Room Air Room Air Intake & Output 11/30 1600 11/30 0800 11/30 0000 Intake Total 600 Output Total 300 120 Balance -300 480 Intake, Oral 600 Output, Urine 300 120 Patient 217 lb Weight Weight Bed scale Measurement Method Physical Exam General Appearance: Alert, Oriented X3, Cooperative, No Acute Distress Cardiovascular: Regular Rate, Normal S1, Normal S2 Lungs: Clear to Auscultation, Normal Air Movement Abdomen: Normal Bowel Sounds, Soft, No Tenderness Extremities: No Edema Current Medications: Current Medications Sig/James Start time Last Medication Dose Route Stop Time Status Admin Calcitriol 1 MCG MoWeFr 11/22 1400 AC 11/29 IV 1252 Calcium Acetate 2,001 MG WM 11/22 1200 AC 11/29 PO 1721 Epoetin Lizandro 6,000 UNIT MoWeFr 11/22 1359 AC 11/29 IV 1252 Ferric Sodium 125 MG MoWeFr@0900 11/27 0900 AC 11/29 Gluconate Complex IV 12/13 0959 1252 Sodium Chloride 100 ML Levetiracetam 250 MG BID 11/23 2100 AC 11/29 PO 2109 Omeprazole 40 MG DAILY AC 11/29 0822 AC 11/29 PO 1250 Pantoprazole Sodium 40 MG DAILY 11/23 0430 DC 11/28 IV 0943 Last 24 Hrs of Lab/Jerrod Results Last 24 Hrs of Labs/Mics: Laboratory Tests 11/29/17 0639: Anion Gap 13, Estimated GFR 6 L, BUN/Creatinine Ratio 6.7 L, Glucose 96, Calcium 8.2 L, CBC w Diff NO MAN DIFF REQ, RBC 2.97 L, MCV 89.8, MCH 29.5, MCHC 32.8 L, RDW 15.7 H, MPV 8.6, Gran % 72.5, Lymphocytes % 14.0 L, Monocytes % 8.1, Eosinophils % 5.0, Basophils % 0.4, Absolute Granulocytes 5.3, Absolute Lymphocytes 1.0 L, Absolute Monocytes 0.6, Absolute Eosinophils 0.4, Absolute Basophils 0 Lines/Diet/Fluids Catheters/Tubes: hall Assessment/Plan Assessment: 62-year-old male with significant past medical history of prostate surgery( 3years ago), bilateral ureteral stent? Etiology, seizure disorder not on antiepileptic presented for chief complaints of shortness of breath on exertion. #CINDI on CKD s/p HD tunneled catheter placement #Hypocalemia - 2/2 hyperphosphatemia and RF #Seizures - unclear etiology - resolved #BL hydronephrosis s/p stent replacement and hall #AGMA - resolved #AMS - resolved #UTI - ruled out Plan: Monitor CINDI until next week in hopes of not needing assisted dialysis [facility]'s records in chart Continue Leviracetam, Calcitriol, Calcium Acetate Continue Epogen Continue Hall F/U with Urologist in [place] upon discharge EEG without epileptiform Ceftriaxone discontinued for suspected UTI Appreciate Neuro recommendations Appreciate Nephro recommendations DVT ppx: ALPS Code: Full Problem List: 1. ARF (acute renal failure) 2. Hydronephrosis concurrent with and due to calculi of kidney and ureter Pain Ratin Pain Location: NA Pain Goal: Remain pain free Pain Plan: NA Tomorrow's Labs & Rationales: CBC, BEP
[2017-11-30 06:30] VITALS: BP 140/60
[2017-11-30 08:22] LABS: ABSOLUTE BASOPHIL COUNT 0 /CUMM (0.0-0.2); ABSOLUTE EOSINOPHIL COUNT 0.3 /CUMM (0.0-0.7); ABSOLUTE LYMPH COUNT 1.1 /CUMM (1.2-3.4); ABSOLUTE MONOCYTE COUNT 0.8 /CUMM (0.10-0.60); BASOPHIL % 0.5 % (0.0-2.0); GRANULOCYTE % 72.9 % (42.2-75.2); HEMATOCRIT 26.3 % (42-52); MEAN CORPUSCULAR HGB 30.1 PG (27.0-31.0); MEAN CORPUSCULAR HGB CONC 33.8 G/DL (33.0-37.0); MEAN CORPUSCULAR VOLUME 89.2 FL (80.0-94.0); MEAN PLATELET VOLUME 8.6 FL (7.4-10.4); PLATELET COUNT 167 /CUMM (130-400); RBC DISTRIBUTION WIDTH 15.9 % (11.5-14.5); RED BLOOD CELL CT 2.95 /CUMM (4.70-6.10); WHITE BLOOD CELL COUNT 8.3 /CUMM (4.8-10.8)
[2017-11-30 14:32] VITALS: BP 118/72
[2017-11-30 20:47] VITALS: BP 100/52
[2017-12-01 06:12] VITALS: BP 100/64
[2017-12-01 08:11] LABS: ABSOLUTE BASOPHIL COUNT 0 /CUMM (0.0-0.2); ABSOLUTE EOSINOPHIL COUNT 0.3 /CUMM (0.0-0.7); ABSOLUTE GRANULOCYTE CT 5.3 /CUMM (1.4-6.5); ABSOLUTE LYMPH COUNT 1.1 /CUMM (1.2-3.4); ABSOLUTE MONOCYTE COUNT 0.6 /CUMM (0.10-0.60); BASOPHIL % 0.5 % (0.0-2.0); EOSINOPHIL % 3.7 % (0-5); GRANULOCYTE % 72.5 % (42.2-75.2); HEMATOCRIT 25.5 % (42-52); MEAN CORPUSCULAR HGB 29.4 PG (27.0-31.0); MEAN CORPUSCULAR HGB CONC 32.8 G/DL (33.0-37.0); MEAN CORPUSCULAR VOLUME 89.6 FL (80.0-94.0); MEAN PLATELET VOLUME 8.8 FL (7.4-10.4); PLATELET COUNT 167 /CUMM (130-400); RBC DISTRIBUTION WIDTH 16.1 % (11.5-14.5); RED BLOOD CELL CT 2.85 /CUMM (4.70-6.10); WHITE BLOOD CELL COUNT 7.3 /CUMM (4.8-10.8)
[2017-12-01 14:35] VITALS: BP 118/60
--- NOTE | 2017-12-01 19:22 | PN- Att Addend ---
Attending Addendum Attending Brief Note S: The patent was seen and discussed with house staff. He appears comfortable and w/o complaints. No further seizures. Last dialysis was Wednesday 11/29. O: VS: Vital Signs Date Time Temp Pulse Resp B/P B/P Pulse O2 O2 Flow FiO2 Mean Ox Delivery Rate 12/01 1435 97.9 106 20 118/60 93 Room Air 12/01 0612 97.7 98 20 100/64 93 11/30 2047 98.2 114 18 100/52 94 Room Air Intake & Output 12/01 1600 12/01 0800 12/01 0000 Intake Total 1000 720 500 Output Total 450 350 75 Balance 550 370 425 Intake, IV 0 Intake, Oral 1000 720 500 Number 0 Bowel Movements Output, Urine 450 350 75 Patient 207 lb Weight Weight Bed scale Measurement Method Current Medications Sig/James Start time Last Medication Dose Route Stop Time Status Admin Calcitriol 1 MCG MoWeFr 11/22 1400 AC 11/29 IV 1252 Calcium Acetate 2,001 MG WM 11/22 1200 AC 12/01 PO 1647 Epoetin Lizandro 6,000 UNIT MoWeFr 11/22 1359 AC 11/29 IV 1252 Ferric Sodium 125 MG MoWeFr@0900 11/27 0900 AC 11/29 Gluconate Complex IV 12/13 0959 1252 Sodium Chloride 100 ML Levetiracetam 250 MG BID 11/23 2100 AC 12/01 PO 0815 Omeprazole 40 MG DAILY AC 11/29 0822 AC 12/01 PO 0529 Physical Exam: HEENT: sandy- moist mucosa Neck: no JVD Chest: clear Cor: RRR nl S1, S2 w/o murm Abd: BS+, soft, NT Ext: No edema Neuro: non-focal Labs/Tests: Laboratory Tests 12/01/17 0643: Anion Gap 14, Estimated GFR 6 L, BUN/Creatinine Ratio 6.4 L, CBC w Diff NO MAN DIFF REQ, RBC 2.85 L, MCV 89.6, MCH 29.4, MCHC 32.8 L, RDW 16.1 H, MPV 8.8, Gran % 72.5, Lymphocytes % 14.7 L, Monocytes % 8.6, Eosinophils % 3.7, Basophils % 0.5, Absolute Granulocytes 5.3, Absolute Lymphocytes 1.1 L, Absolute Monocytes 0.6, Absolute Eosinophils 0.3, Absolute Basophils 0 11/30/17 0655: Anion Gap 13, Estimated GFR 9 L, BUN/Creatinine Ratio 6.7 L, CBC w Diff NO MAN DIFF REQ, RBC 2.95 L, MCV 89.2, MCH 30.1, MCHC 33.8, RDW 15.9 H, MPV 8.6, Gran % 72.9, Lymphocytes % 13.0 L, Monocytes % 9.6 H, Eosinophils % 4.0, Basophils % 0.5, Absolute Granulocytes 6.0, Absolute Lymphocytes 1.1 L, Absolute Monocytes 0.8 H, Absolute Eosinophils 0.3, Absolute Basophils 0 11/29/17 0639: Anion Gap 13, Estimated GFR 6 L, BUN/Creatinine Ratio 6.7 L, Glucose 96, Calcium 8.2 L, CBC w Diff NO MAN DIFF REQ, RBC 2.97 L, MCV 89.8, MCH 29.5, MCHC 32.8 L, RDW 15.7 H, MPV 8.6, Gran % 72.5, Lymphocytes % 14.0 L, Monocytes % 8.1, Eosinophils % 5.0, Basophils % 0.4, Absolute Granulocytes 5.3, Absolute Lymphocytes 1.0 L, Absolute Monocytes 0.6, Absolute Eosinophils 0.4, Absolute Basophils 0 Impression/Plan: #Acute on Chronic Renal Failure- remains non-oliguric. Cr increase from 6. 3 to 8.9. Patient now has medical insurance per case management ([facility]VIN). Plan: Nephrology to review labs tomorrow and decide regarding additional dialysis. #Seizure Disorder- no further seizures. Plan: Continue Leviracetam. #S/P Obstructive Uropathy- bilateral stents and prostate. Seen by Dr. Burch here. Plan: Patient will need urologic follow-up. Had at one time seen Urologist in [place] 5 years ago. Please determine if Dr. Burch or [place] [facility] will take Kevin. If they do not take Kevin consider Drs. Adan/Salvador. #Hypocalcemia- resolved. Plan: Continue to monitor on dialysis. #Chronic Anemia- H/H as above. Plan: Continue Epogen.
[2017-12-01 22:18] VITALS: BP 110/56
[2017-12-02 06:02] VITALS: BP 102/60
--- NOTE | 2017-12-02 07:22 | Discharge Summary ---
Visit Information Visit Dates Admission Date: 11/21/17 Discharge Date: 12/07/17 Hospital Course Course Attending Physician: Ana Brady MD Primary Care Physician: Patient Has No Primary Care Dr Hospital Course: Patient is a 62-year-old male with significant past medical history of prostate surgery (3 years ago), bilateral ureteral stent ? Etiology, seizure disorder not on antiepileptic presented for chief complaints of shortness of breath on exertion. He was admitted to the ICU and subsequently transferred to the gen med floor once stable Severe anion gap metabolic acidosis, hypocalcemia, hyperphosphatemia due to acute kidney injury secondary to obstructive uropathy including BPH/obstructing ureteral stent, undergoing dialysis - On the day of admission, patient was having hematuria and difficult Murillo insertion. We obtained nephrology and urology consult advised for ultrasound and CT abdomen/pelvis which showed evidence bilateral hydronephrosis right greater than the left and bilateral stents. Dr. Burch advised for replacement of ureteral stent and Murillo insertion, done on 11/21/2017. Murillo was later discontinued after two weeks and patient was able to void on his own. We monitored the patient with ICU, his kidney function did not improved so decided for dialysis. A tunneled catheter was placed. We monitored his CINDI to determine if permanent access was needed. He was started on high calcium dialysis, calcium acetate -phosphate binder, calcitriol injection on and Sat with dialysis. Patient has an outpatient dialysis slot. Although he has not labeled as end-stage renal disease on chronic kidney disease patients left but he is to continue to get dialysis as an outpatient. Over the course of next few weeks if creatinine does not improve then he will likely be diagnosed with chronic kidney disease. Patient to continue to follow-up with nephrology as outpatient. History of Seizure disorder possibly due to electrolyte imbalance Neurology was consulted. We placed him on Keppra 250mg twice daily. EEG showed evidence of toxic metabolic encephalopathy but no epileptiform activity found. Chronic anemia secondary to kidney disease We administered IV erythropoietin 6000 unit , and Sat with dialysis and started him patient on tablet ferrous sulfate 352 mg twice daily. Asymptomatic UTI due to Klebsiella pneumonia He was asymptomatic, afebrile and there was no leukocytosis so antibiotics were. Allergies: Coded Allergies: No Known Allergies (11/21/17) Pertinent Lab Results: 11/21/17- EXAM TYPE: CAT - CT ABD & PELVIS W/O IV CONTRAS IMPRESSION: 1. Bilateral ureteric stents in place. Moderate right and mild left hydronephrosis. Bilateral stranding surrounding the collecting systems and kidneys. Correlate clinically for bilateral ureteral pyelitis. 2. Mildly thick-walled urinary bladder. Cystitis cannot be excluded. 11/21/17- EXAM TYPE: RAD - XRY-KIDNEYS, URETERS, BLADDER IMPRESSION: Administrative dictation for intraoperative fluoroscopy and image archiving in PACS. Please refer to operative notes for details. 11/21/17 EXAM TYPE: RAD - XRY-CHEST XRAY, TWO VIEWS IMPRESSION: Streaky atelectasis or less likely minor infiltrate noted in the left base. Linear atelectatic changes right mid to lower lung. 11/21/17 EXAM TYPE: US - US-RENAL/KIDNEY IMPRESSION: 1. Bilateral hydronephrosis, right greater than left. 2. Bilateral stents are partially visualized. Incidental note is made of gallstones. 11/22/17 EXAM TYPE: US - FLUORO GUID VENOUS ACCESS; INTERVENTIONAL SETUP; US-GUIDANCE VASCULAR ACCESS IMPRESSION: Successful and uncomplicated placement of a tunneled hemodialysis catheter. Disposition Summary Disposition Principal Diagnosis: Acute kidney injury 2/2 obstructive uropathy Questionable underlying CKD Abnormal electrolytes Anemia of chronic disease Additional Diagnosis: as above Discharge Disposition: home or self care Discharge Instructions General Discharge Information Code Status: Full Code Patient's Diet: Renal Patient's Activity: Full Follow-Up Instructions/Appts: Please follow up with your PCP, Fitness Management Director and Neurologist within a week after discharge. Medications at Discharge Discharge Medications: Start taking the following new medications: Levetiracetam (Levetiracetam) 250 MG TABLET 1 Tablet ORAL TWICE DAILY Qty = 60 No Refills Instructions: . Comments: Last Taken:12/07/17 Time:12:48PM Calcium Acetate (Calcium Acetate) 667 MG CAPSULE 2 Capsule ORAL THREE TIMES DAILY Qty = 180 No Refills Instructions: . Comments: Last Taken:12/07/17 Time:12:47PM Omeprazole (Omeprazole) 20 MG CAPSULE.DR 1 Tablet ORAL DAILY BEFORE BREAKFAST Qty = 30 No Refills Instructions: . Epoetin Lizandro (Procrit) 3,000 UNIT/ML VIAL 6,000 Unit INTRAVEN SATURDAY, SATURDAY, SATURDAY Qty = 30 No Refills Calcitriol (Calcitriol) 1 MCG/ML AMPUL 1 Amp INTRAVEN SATURDAY, SATURDAY, SATURDAY Qty = 12 No Refills Sodium Ferric Gluconat/Sucrose (Ferrlecit 62.5 MG/5 Ml Vial) 62.5 MG/5 ML VIAL 125 Milligram INTRAVEN SATURDAY, SATURDAY, SATURDAY Qty = 24 No Refills Copies To: [place] THOMAS,Roderick Tracy; Louis THOMAS,Randell Tracy; Eben Burch MD
--- NOTE | 2017-12-02 07:22 | PN- Housestaff ---
See Addendum Subjective Follow-up For: Acute kidney injury possible underlying chronic kidney disease History of seizures, unknown etiology not on antiepileptic at home - stable Altered electrolyte -hypocalcemia, hyperphosphatemia - resolved Anemia of chronic disease possibly chronic kidney disease Subjective: No complaints or acute events overnight. Denies flank pain, nausea, vomiting, fever, chills, hematuria Review of Systems Constitutional: Reports: see HPI. Objective Last 24 Hrs of Vital Signs/I&O Vital Signs Date Time Temp Pulse Resp B/P B/P Pulse O2 O2 Flow FiO2 Mean Ox Delivery Rate 12/02 0602 98.0 96 20 102/60 92 12/01 2218 98.7 100 16 110/56 92 Room Air 12/01 1435 97.9 106 20 118/60 93 Room Air Intake & Output 12/02 1600 12/02 0800 12/02 0000 Intake Total 120 800 Output Total 950 550 Balance -830 250 Intake, Oral 120 800 Output, Urine 950 550 Patient 208 lb Weight Weight Bed scale Measurement Method Physical Exam General Appearance: Alert, Oriented X3, Cooperative, No Acute Distress Cardiovascular: Regular Rate, Normal S1, Normal S2 Lungs: Clear to Auscultation, Normal Air Movement Abdomen: Normal Bowel Sounds, Soft, No Tenderness Extremities: No Edema Current Medications: Current Medications Sig/James Start time Last Medication Dose Route Stop Time Status Admin Calcitriol 1 MCG MoWeFr 11/22 1400 AC 11/29 IV 1252 Calcium Acetate 2,001 MG WM 11/22 1200 AC 12/02 PO 0822 Epoetin Lizandro 6,000 UNIT MoWeFr 11/22 1359 AC 11/29 IV 1252 Ferric Sodium 125 MG MoWeFr@0900 11/27 0900 AC 11/29 Gluconate Complex IV 12/13 0959 1252 Sodium Chloride 100 ML Levetiracetam 250 MG BID 11/23 2100 AC 12/02 PO 0827 Omeprazole 40 MG DAILY AC 11/29 0822 AC 12/02 PO 0632 Last 24 Hrs of Lab/Jerrod Results Last 24 Hrs of Labs/Mics: Laboratory Tests 12/02/17 0845: Sodium Pending, Potassium Pending, Chloride Pending, Carbon Dioxide Pending, Anion Gap Pending, BUN Pending, Creatinine Pending, BUN/Creatinine Ratio Pending , CBC w Diff Pending, WBC Pending, RBC Pending, Hgb Pending, Hct Pending, MCV Pending, MCH Pending, MCHC Pending, RDW Pending, Plt Count Pending, MPV Pending Lines/Diet/Fluids Hall Still Needed? Yes Assessment/Plan Assessment: 62-year-old male with significant past medical history of prostate surgery( 3years ago), bilateral ureteral stent? Etiology, seizure disorder not on antiepileptic presented for chief complaints of shortness of breath on exertion. #CINDI on CKD s/p HD tunneled catheter placement #Hypocalemia - 2/2 hyperphosphatemia and RF - resolved #Seizures - unclear etiology - stable #BL hydronephrosis s/p stent replacement and hall #AGMA - resolved #AMS - resolved #UTI - ruled out Plan: Monitor CINDI until next week in hopes of not needing alf dialysis (Cr 6.3>> 8.6>>9.7) [place] records in chart Continue Leviracetam, Calcitriol, Calcium Acetate Continue Epogen Continue Hall F/U with Urologist in [place] upon discharge as per Uro (Patient requests to f /u with Dr. Burch) EEG without epileptiform Ceftriaxone discontinued for suspected UTI Appreciate Neuro recommendations Appreciate Nephro recommendations Appreciate Uro recommendations DVT ppx: ALPS Code: Full Problem List: 1. CINDI (acute kidney injury) 2. Hydronephrosis concurrent with and due to calculi of kidney and ureter Pain Ratin Pain Location: NA Pain Goal: Remain pain free Pain Plan: NA Tomorrow's Labs & Rationales: CBC, BEP
--- NOTE | 2017-12-02 08:10 | PN- Student ---
Subjective Subjective: Patient has no complaints from overnight. His parents were able to visit over the weekend and the patient found the visit to be comforting. He states that he is urinating more as he is drinking more. Patient denies pain, seizures, nausea , vomiting, fever or chills. Objective Objective: PE: General: Patient was found sleeping. Upon waking was alert and oriented, pleasant, and well spoken. Skin: warm and dry throughout. Heart: regular rate and rhythm with no rubs clicks, murmurs or gallops Lungs: clear bilaterally. Even chest expansion. : Urine in hall bag is medium yellow and clear. Results Results: Laboratory Tests 12/02/17 0845: Anion Gap 17 H, Estimated GFR 6 L, BUN/Creatinine Ratio 7.2, CBC w Diff NO MAN DIFF REQ, RBC 2.77 L, MCV 89.7, MCH 29.9, MCHC 33.3, RDW 15.5 H, MPV 8.6, Gran % 75.8 H, Lymphocytes % 13.4 L, Monocytes % 5.8, Eosinophils % 4.1, Basophils % 0.9, Absolute Granulocytes 4.5, Absolute Lymphocytes 0.8 L, Absolute Monocytes 0.3, Absolute Eosinophils 0.2, Absolute Basophils 0.1 12/01/17 0643: Anion Gap 14, Estimated GFR 6 L, BUN/Creatinine Ratio 6.4 L, CBC w Diff NO MAN DIFF REQ, RBC 2.85 L, MCV 89.6, MCH 29.4, MCHC 32.8 L, RDW 16.1 H, MPV 8.8, Gran % 72.5, Lymphocytes % 14.7 L, Monocytes % 8.6, Eosinophils % 3.7, Basophils % 0.5, Absolute Granulocytes 5.3, Absolute Lymphocytes 1.1 L, Absolute Monocytes 0.6, Absolute Eosinophils 0.3, Absolute Basophils 0 11/30/17 0655: Anion Gap 13, Estimated GFR 9 L, BUN/Creatinine Ratio 6.7 L, CBC w Diff NO MAN DIFF REQ, RBC 2.95 L, MCV 89.2, MCH 30.1, MCHC 33.8, RDW 15.9 H, MPV 8.6, Gran % 72.9, Lymphocytes % 13.0 L, Monocytes % 9.6 H, Eosinophils % 4.0, Basophils % 0.5, Absolute Granulocytes 6.0, Absolute Lymphocytes 1.1 L, Absolute Monocytes 0.8 H, Absolute Eosinophils 0.3, Absolute Basophils 0 Assessment/Plan Assessment: Patient is a 62 year old male with a history of seizures, acute kidney failure that required dialysis in the past, bilaterally uretal stent placement, and BPH. He has been monitored for creatinine and BUN for progress to evaluate the need for continued dialysis/fistula placement. Over the last few days the patient's creatinine have begun to increase again. He is going for dialysis this morning. Plan: CINDI - Continue with dialysis treatments, consult with nephrology about need for watermelon inspector dialysis based on the creatinine lab values. Anemia - RBC count is still low, continue epoetin alpha, ferric sodium gluconate , and monitor levels. Calcium - Calcium levels have been improving with calcitriol and calcium acetate , continue with these medications and monitor levels. levetiracetam, and omeprazole. Seizure status - Seizures have been well controlled, continue levetiracetam.
[2017-12-02 09:32] LABS: ABSOLUTE BASOPHIL COUNT 0.1 /CUMM (0.0-0.2); ABSOLUTE EOSINOPHIL COUNT 0.2 /CUMM (0.0-0.7); ABSOLUTE GRANULOCYTE CT 4.5 /CUMM (1.4-6.5); ABSOLUTE LYMPH COUNT 0.8 /CUMM (1.2-3.4); ABSOLUTE MONOCYTE COUNT 0.3 /CUMM (0.10-0.60); BASOPHIL % 0.9 % (0.0-2.0); EOSINOPHIL % 4.1 % (0-5); GRANULOCYTE % 75.8 % (42.2-75.2); HEMATOCRIT 24.8 % (42-52); MEAN CORPUSCULAR HGB 29.9 PG (27.0-31.0); MEAN CORPUSCULAR HGB CONC 33.3 G/DL (33.0-37.0); MEAN CORPUSCULAR VOLUME 89.7 FL (80.0-94.0); MEAN PLATELET VOLUME 8.6 FL (7.4-10.4); PLATELET COUNT 167 /CUMM (130-400); RBC DISTRIBUTION WIDTH 15.5 % (11.5-14.5); RED BLOOD CELL CT 2.77 /CUMM (4.70-6.10)
--- NOTE | 2017-12-02 12:37 | PN- Nephrology ---
See Addendum Assessment/Plan Nephrology Assessment: CINDI - 2/2 obstructive uropathy. Non-oliguric although remains with severely reduced renal function. Given that his renal function has not recovered, it's his only medical issue keeping him in the hospital, and I honestly don't know if he'll end up recovering, I think it'd be reasonable to discharge him as an "CINDI " and monitor labs at outpatient dialysis. ?CKD - Presented to [facility] in August 2015 with a Cr of 17 and moderate-severe b/l hydro on Renal US - discharged with chronic hall. Noncompliant with follow -up. Not clear exactly where renal function ended up but may have been significant. Anemia - a marker of length of renal injury. Is on an MIHAELA. Functional iron deficiency - has been started on IV iron. Hypocalcemia - Improved on current regimen. Suggestion: -HD today -Will need URR to see if 3.5hrs is adequate -Cont MIHAELA and course of IV iron -Cont high Ca bath, Ca based binders, and Calcitriol Outpatient coordinator notified to start looking for outpatient dialysis seat - will monitor for possible renal recovery as an outpatient. Will hold off on permanent access placement at this time Please call [phone] with ?'s Subjective Subjective: SCr continues to uptrend between HD sessions - 9.7 1350cc UOP; hall remains in place No somatic complaints Objective Vital Signs and I&Os Vital Signs Date Time Temp Pulse Resp B/P B/P Pulse O2 O2 Flow FiO2 Mean Ox Delivery Rate 12/02 0602 98.0 96 20 102/60 92 12/01 2218 98.7 100 16 110/56 92 Room Air 12/01 1435 97.9 106 20 118/60 93 Room Air Intake & Output 12/02 1600 12/02 0400 12/01 1600 12/01 0400 11/30 1600 11/30 0400 Intake Total 941 992 7209 500 600 Output Total 950 550 800 75 575 120 Balance -830 250 920 425 -575 480 Intake, IV 0 Intake, Oral 537 915 2579 500 600 Number 0 1 Bowel Movements Output, Urine 950 550 800 75 575 120 Patient 208 lb 207 lb 217 lb Weight Weight Bed scale Bed scale Bed scale Measurement Method Physical Exam: Gen - NAD HEENT - supple CV - RRR, no m/r/g Chest - clear, no w/r/r Abd - soft, NTND Ext - warm, no edema Neuro - AOX3, grossly nonfocal Current Medications: Current Medications Sig/James Start time Last Medication Dose Route Stop Time Status Admin Calcitriol 1 MCG MoWeFr 11/22 1400 AC 11/29 IV 1252 Calcium Acetate 2,001 MG WM 11/22 1200 AC 12/02 PO 1220 Epoetin Lizandro 6,000 UNIT MoWeFr 11/22 1359 AC 11/29 IV 1252 Ferric Sodium 125 MG MoWeFr@0900 11/27 0900 AC 11/29 Gluconate Complex IV 12/13 0959 1252 Sodium Chloride 100 ML Levetiracetam 250 MG BID 11/23 2100 AC 12/02 PO 0827 Omeprazole 40 MG DAILY AC 11/29 0822 AC 12/02 PO 0632 Results Pertinent Lab Results: Laboratory Tests 12/02 12/01 0845 0643 Chemistry Sodium (137 - 145 mmol/L) 140 140 Potassium (3.5 - 5.1 mmol/L) 4.5 4.2 Chloride (98 - 107 mmol/L) 103 102 Carbon Dioxide (22 - 30 mmol/L) 20 L 24 Anion Gap (5 - 16) 17 H 14 BUN (9 - 20 mg/dL) 70 H 55 H Creatinine (0.7 - 1.2 mg/dL) 9.7 *H 8.6 *H Estimated GFR (>60 ml/min) 6 L 6 L BUN/Creatinine Ratio (7 - 25 %) 7.2 6.4 L Hematology CBC w Diff NO MAN DIFF REQ NO MAN DIFF REQ WBC (4.8 - 10.8 /CUMM) 6.0 7.3 RBC (4.70 - 6.10 /CUMM) 2.77 L 2.85 L Hgb (14.0 - 18.0 G/DL) 8.3 L 8.4 L Hct (42 - 52 %) 24.8 L 25.5 L MCV (80.0 - 94.0 FL) 89.7 89.6 MCH (27.0 - 31.0 PG) 29.9 29.4 MCHC (33.0 - 37.0 G/DL) 33.3 32.8 L RDW (11.5 - 14.5 %) 15.5 H 16.1 H Plt Count (130 - 400 /CUMM) 167 167 MPV (7.4 - 10.4 FL) 8.6 8.8 Gran % (42.2 - 75.2 %) 75.8 H 72.5 Lymphocytes % (20.5 - 51.1 %) 13.4 L 14.7 L Monocytes % (1.7 - 9.3 %) 5.8 8.6 Eosinophils % (0 - 5 %) 4.1 3.7 Basophils % (0.0 - 2.0 %) 0.9 0.5 Absolute Granulocytes (1.4 - 6.5 /CUMM) 4.5 5.3 Absolute Lymphocytes (1.2 - 3.4 /CUMM) 0.8 L 1.1 L Absolute Monocytes (0.10 - 0.60 /CUMM) 0.3 0.6 Absolute Eosinophils (0.0 - 0.7 /CUMM) 0.2 0.3 Absolute Basophils (0.0 - 0.2 /CUMM) 0.1 0 06/16 0655 Chemistry Sodium (137 - 145 mmol/L) 141 Potassium (3.5 - 5.1 mmol/L) 4.3 Chloride (98 - 107 mmol/L) 103 Carbon Dioxide (22 - 30 mmol/L) 25 Anion Gap (5 - 16) 13 BUN (9 - 20 mg/dL) 42 H Creatinine (0.7 - 1.2 mg/dL) 6.3 *H Estimated GFR (>60 ml/min) 9 L BUN/Creatinine Ratio (7 - 25 %) 6.7 L Hematology CBC w Diff NO MAN DIFF REQ WBC (4.8 - 10.8 /CUMM) 8.3 RBC (4.70 - 6.10 /CUMM) 2.95 L Hgb (14.0 - 18.0 G/DL) 8.9 L Hct (42 - 52 %) 26.3 L MCV (80.0 - 94.0 FL) 89.2 MCH (27.0 - 31.0 PG) 30.1 MCHC (33.0 - 37.0 G/DL) 33.8 RDW (11.5 - 14.5 %) 15.9 H Plt Count (130 - 400 /CUMM) 167 MPV (7.4 - 10.4 FL) 8.6 Gran % (42.2 - 75.2 %) 72.9 Lymphocytes % (20.5 - 51.1 %) 13.0 L Monocytes % (1.7 - 9.3 %) 9.6 H Eosinophils % (0 - 5 %) 4.0 Basophils % (0.0 - 2.0 %) 0.5 Absolute Granulocytes (1.4 - 6.5 /CUMM) 6.0 Absolute Lymphocytes (1.2 - 3.4 /CUMM) 1.1 L Absolute Monocytes (0.10 - 0.60 /CUMM) 0.8 H Absolute Eosinophils (0.0 - 0.7 /CUMM) 0.3 Absolute Basophils (0.0 - 0.2 /CUMM) 0 Imaging/Other Studies: None new
[2017-12-02 14:00] VITALS: BP 95/65
[2017-12-02 15:10] LABS: ABSOLUTE BASOPHIL COUNT 0 /CUMM (0.0-0.2); ABSOLUTE EOSINOPHIL COUNT 0.2 /CUMM (0.0-0.7); ABSOLUTE GRANULOCYTE CT 4.9 /CUMM (1.4-6.5); ABSOLUTE MONOCYTE COUNT 0.5 /CUMM (0.10-0.60); BASOPHIL % 0.6 % (0.0-2.0); EOSINOPHIL % 2.5 % (0-5); GRANULOCYTE % 74.1 % (42.2-75.2); MEAN CORPUSCULAR HGB 30.4 PG (27.0-31.0); MEAN CORPUSCULAR HGB CONC 33.8 G/DL (33.0-37.0); MEAN CORPUSCULAR VOLUME 89.7 FL (80.0-94.0); MEAN PLATELET VOLUME 8.6 FL (7.4-10.4); PLATELET COUNT 169 /CUMM (130-400); RBC DISTRIBUTION WIDTH 15.3 % (11.5-14.5); RED BLOOD CELL CT 2.68 /CUMM (4.70-6.10); WHITE BLOOD CELL COUNT 6.6 /CUMM (4.8-10.8)
[2017-12-02 18:39] VITALS: BP 112/64
[2017-12-02 22:32] VITALS: BP 125/84
[2017-12-03 05:47] VITALS: BP 118/58
--- NOTE | 2017-12-03 07:23 | PN- Housestaff ---
Se THOMAS,[facility] 12/03/17 0723: Subjective Follow-up For: CINDI with possible underlying CKD Seizures, unknown etiology Electrolyte abnormalities - Hypocalcemia, hyperphosphatemia - resolved Anemia of chronic disease possibly 2/2 to CKD Subjective: Patient feels much better, denies any active complaints. Review of Systems Constitutional: Reports: no symptoms. EENTM: Reports: no symptoms. Cardiovascular: Reports: no symptoms. Respiratory: Reports: no symptoms. Gastrointestinal: Reports: no symptoms. Genitourinary: Reports: no symptoms. Musculoskeletal: Reports: no symptoms. Skin: Reports: no symptoms. Neurological/Psychological: Reports: no symptoms. Hematologic/Endocrine: Reports: no symptoms. Immunologic/Allergic: Reports: no symptoms. Objective Last 24 Hrs of Vital Signs/I&O Vital Signs Date Time Temp Pulse Resp B/P B/P Pulse O2 O2 Flow FiO2 Mean Ox Delivery Rate 12/03 0547 98.6 82 20 118/58 94 Room Air 12/02 2232 98.2 107 20 125/84 97 Room Air 12/02 1839 98.2 107 18 112/64 91 12/02 1400 98.5 98 18 95/65 96 Room Air Intake & Output 12/03 1600 12/03 0800 12/03 0000 Intake Total 400 Output Total 700 500 Balance -700 -100 Intake, Oral 400 Output, Urine 700 500 Patient 210 lb 209 lb Weight Weight Bed scale Measurement Method Physical Exam General Appearance: Alert, Oriented X3, Cooperative, No Acute Distress Skin: No Rashes, No Breakdown Cardiovascular: Regular Rate, Normal S1, Normal S2 Lungs: Clear to Auscultation, Normal Air Movement Abdomen: Normal Bowel Sounds, Soft, No Tenderness Extremities: No Clubbing, No Cyanosis, No Edema Current Medications: Current Medications Sig/James Start time Last Medication Dose Route Stop Time Status Admin Calcitriol 1 MCG MoWeFr 11/22 1400 AC 11/29 IV 1252 Calcium Acetate 2,001 MG WM 11/22 1200 AC 12/03 PO 1104 Epoetin Lizandro 6,000 UNIT MoWeFr 11/22 1359 AC 11/29 IV 1252 Ferric Sodium 125 MG MoWeFr@00 11/27 0900 AC 11/29 Gluconate Complex IV 12/13 0959 1252 Sodium Chloride 100 ML Levetiracetam 250 MG BID 11/23 2100 AC 12/03 PO 0810 Omeprazole 40 MG DAILY AC 11/29 0822 AC 12/03 PO 0614 Patient Medication 1 ED ONE ONE 12/02 1315 [facility] ED 12/02 1316 Last 24 Hrs of Lab/Jerrod Results Last 24 Hrs of Labs/Mics: Laboratory Tests 12/03/17 0715: Anion Gap 12, Estimated GFR 10 L, BUN/Creatinine Ratio 6.9 L, CBC w Diff NO MAN DIFF REQ, RBC 2.81 L, MCV 90.8, MCH 29.7, MCHC 32.7 L, RDW 16.1 H, MPV 8.6, Gran % 71.7, Lymphocytes % 13.8 L, Monocytes % 10.1 H, Eosinophils % 3.6, Basophils % 0.8, Absolute Granulocytes 3.8, Absolute Lymphocytes 0.7 L, Absolute Monocytes 0.5, Absolute Eosinophils 0.2, Absolute Basophils 0 12/02/17 1739: 12/02/17 1400: Anion Gap 17 H, Estimated GFR 5 L, BUN/Creatinine Ratio 7.6, Calcium 8.2 L, Phosphorus 4.4, Magnesium 1.8, Albumin 3.1 L, CBC w Diff NO MAN DIFF REQ, RBC 2.68 L, MCV 89.7, MCH 30.4, MCHC 33.8, RDW 15.3 H, MPV 8.6, Gran % 74.1, Lymphocytes % 15.4 L, Monocytes % 7.4, Eosinophils % 2.5, Basophils % 0.6, Absolute Granulocytes 4.9, Absolute Lymphocytes 1.0 L, Absolute Monocytes 0.5, Absolute Eosinophils 0.2, Absolute Basophils 0 Assessment/Plan Assessment: 62-year-old male with significant past medical history of prostate surgery( 3years ago), bilateral ureteral stent? Etiology, seizure disorder not on antiepileptic presented for chief complaints of shortness of breath on exertion. #CINDI on CKD s/p HD tunneled catheter placement #Hypocalemia - 2/2 hyperphosphatemia and RF - resolved #Seizures - unclear etiology - stable #BL hydronephrosis s/p stent replacement and hall #AGMA - resolved #AMS - resolved #UTI - ruled out Plan: Cr. improved after HD yesterday, (Cr 6.3>>8.6>>9.7>>5.8). Dialysis and follow up with nephro as an outpatient, If cr. continues to improve patient might not need skilled nursing dialysis. [place] records in chart Continue Leviracetam, Calcitriol, Calcium Acetate Continue Epogen Continue Hall EEG without epileptiform, Continue Keppra Ceftriaxone discontinued for suspected UTI Appreciate Neuro recommendations Appreciate Nephro recommendations Appreciate Uro recommendations DVT ppx: ALPS Code: Full Problem List: 1. Seizure 2. Hydronephrosis concurrent with and due to calculi of kidney and ureter 3. CINDI (acute kidney injury) Pain Ratin Pain Location: NA Pain Goal: Remain pain free Pain Plan: Pain Pathway Tomorrow's Labs & Rationales: BEP(CINDI on CKD, On dialysis) Jose Antonio THOMAS,Ana 12/03/17 1237: Attending MD Review Statement Attending Statement Attending MD Statement: examined this patient, discuss w/resident/PA/SOLUTION STRATEGIST, agreed w/resident/PA/SOLUTION STRATEGIST, reviewed EMR data (avail), discussed with nursing, discussed with case mgmt, reviewed images, amended to note Attending Assessment/Plan: Patient seen and examined, denies any complaints. Creatinine is slightly better today. Patient due for dialysis tomorrow. Project Facilitator seem to think that he can start (outpatient dialysis slot for him. Let the social science teacher know. Looking back it seems like but patient has a tunneled catheter which is considered okay to be used for long-term basis. If there is an outpatient slot and patient can likely be discharged and further renal recovery can be followed as an outpatient. Continue all other current management.
--- NOTE | 2017-12-03 07:40 | PN- Student ---
Subjective Subjective: Patient reports no changes overnight. He is comfortable and stated that he slept well last night. He reports that he has been trying to drink more fluids, and he feels he has been urinating more. He denies any seizures, pain, SOB, nausea, vomiting, diarrhea, or fatigue. His primary concern is learning about how his kidney function is progressing. Objective Objective: Physical exam: General: Patient was sleeping upon entering the room. He woke up easily, and was alert and oriented, pleasant, and well spoken. Skin: Warm and dry. No lower extremity edema. Heart: Regular rate and rhythm. No murmurs, rubs, clicks, or gallops. Lungs: Lungs clear bilaterally. Thoracic expansion was even. : Urine in hall was light yellow and clear. Results Results: Laboratory Tests 12/03/17 0715: Anion Gap 12, Estimated GFR 10 L, BUN/Creatinine Ratio 6.9 L, CBC w Diff NO MAN DIFF REQ, RBC 2.81 L, MCV 90.8, MCH 29.7, MCHC 32.7 L, RDW 16.1 H, MPV 8.6, Gran % 71.7, Lymphocytes % 13.8 L, Monocytes % 10.1 H, Eosinophils % 3.6, Basophils % 0.8, Absolute Granulocytes 3.8, Absolute Lymphocytes 0.7 L, Absolute Monocytes 0.5, Absolute Eosinophils 0.2, Absolute Basophils 0 12/02/17 1739: 12/02/17 1400: Anion Gap 17 H, Estimated GFR 5 L, BUN/Creatinine Ratio 7.6, Calcium 8.2 L, Phosphorus 4.4, Magnesium 1.8, Albumin 3.1 L, CBC w Diff NO MAN DIFF REQ, RBC 2.68 L, MCV 89.7, MCH 30.4, MCHC 33.8, RDW 15.3 H, MPV 8.6, Gran % 74.1, Lymphocytes % 15.4 L, Monocytes % 7.4, Eosinophils % 2.5, Basophils % 0.6, Absolute Granulocytes 4.9, Absolute Lymphocytes 1.0 L, Absolute Monocytes 0.5, Absolute Eosinophils 0.2, Absolute Basophils 0 12/02/17 0845: Anion Gap 17 H, Estimated GFR 6 L, BUN/Creatinine Ratio 7.2, CBC w Diff NO MAN DIFF REQ, RBC 2.77 L, MCV 89.7, MCH 29.9, MCHC 33.3, RDW 15.5 H, MPV 8.6, Gran % 75.8 H, Lymphocytes % 13.4 L, Monocytes % 5.8, Eosinophils % 4.1, Basophils % 0.9, Absolute Granulocytes 4.5, Absolute Lymphocytes 0.8 L, Absolute Monocytes 0.3, Absolute Eosinophils 0.2, Absolute Basophils 0.1 12/01/17 0643: Anion Gap 14, Estimated GFR 6 L, BUN/Creatinine Ratio 6.4 L, CBC w Diff NO MAN DIFF REQ, RBC 2.85 L, MCV 89.6, MCH 29.4, MCHC 32.8 L, RDW 16.1 H, MPV 8.8, Gran % 72.5, Lymphocytes % 14.7 L, Monocytes % 8.6, Eosinophils % 3.7, Basophils % 0.5, Absolute Granulocytes 5.3, Absolute Lymphocytes 1.1 L, Absolute Monocytes 0.6, Absolute Eosinophils 0.3, Absolute Basophils 0 Assessment/Plan Assessment: Patient is a 62 year old man with history of bilateral uretal stents, AKF, BPH, and seizures. He has been treated with several sessions of dialysis, most recent session was yesterday. Urology was consulted to evaluate the need for [facility] dialysis, and felt that exterminator helper dialysis may be necessary. Florist Manager did not recommend placing a permanent fistula at this time. Patient's creatinine values seem to fluxuate, improving after dialysis and then climbing until his next session. It is unclear if he is establishing a new baseline creatinine or if he will continue to fluxuate. With regard to the patient's anemia, his HCT and HGB have remained relatively steady but low. The patient appears to be well controlled for seizures on Levetiracetam. Patient's calcium levels appear to be improving over the last week. Plan: CINDI- Evaluate patient's creatinine values to see if a new baseline is being established. Nephrology consult suggested [facility] dialysis. Establish a space on patient's behalf in an outpatient dialysis center. Leave hall in place. Anemia - Continue patient on epoetin and ferric sodium gluconate. Seizures - Continue patient on levetiracetam. Calcium deficiency - Continue patient on calcium acetate, and calcitriol.
--- NOTE | 2017-12-03 08:07 | Patient Discharge Instructions ---
Discharge Instructions General Discharge Information You were seen/treated for: - Acute kidney injury with possible underlying chronic kidney disease - Seizures, unknown etiology - Electrolyte abnormalities -hypocalcemia, hyperphosphatemia - resolved - Anemia of chronic disease possibly 2/2 chronic kidney disease Special Instructions: Please follow up with your PCP, Miniature Set Builder and Neurologist within a week after discharge. Diet Continue normal diet: Yes Activity Full Activity/No Limits: Yes Acute Coronary Syndrome Inclusion Criteria At DC or during hospital stay patient has or had the following: ACS DIAGNOSIS No Discharge Core Measures Meds if any: Prescribed or Continued at Discharge Meds if any: NOT Prescribed or Continued at Discharge Congestive Heart Failure Inclusion Criteria At DC or during hospital stay patient has or had the following: CHF DIAGNOSIS No Discharge Core Measures Meds if any: Prescribed or Continued at Discharge Meds if any: NOT Prescribed or Continued at Discharge Cerebrovascular accident Inclusion Criteria At DC or during hospital stay patient has or had the following: CVA/TIA Diagnosis No Discharge Core Measures Meds if any: Prescribed or Continued at Discharge Meds if any: NOT Prescribed or Continued at Discharge Venous thromboembolism Inclusion Criteria VTE Diagnosis No VTE Type NONE VTE Confirmed by (Test) NONE Discharge Core Measures - Per Current guidelines, there needs to be overlap - treatment for the first 5 days of Warfarin therapy. - If discharged on Warfarin prior to 5 days of - overlap therapy, the patient will need to be - assessed for post discharge needs including - *Post discharge parental anticoagulation - *Warfarin and/or parental anticoagulation education - *Follow up date to check INR post discharge At least 5 days overlap therapy as Inpatient No Meds if any: Prescribed or Continued at Discharge Note: Overlap Therapy is Warfarin and Anticoagulant Meds if any: NOT Prescribed or Continued at Discharge
[2017-12-03 08:27] LABS: ABSOLUTE BASOPHIL COUNT 0 /CUMM (0.0-0.2); ABSOLUTE EOSINOPHIL COUNT 0.2 /CUMM (0.0-0.7); ABSOLUTE GRANULOCYTE CT 3.8 /CUMM (1.4-6.5); ABSOLUTE LYMPH COUNT 0.7 /CUMM (1.2-3.4); ABSOLUTE MONOCYTE COUNT 0.5 /CUMM (0.10-0.60); BASOPHIL % 0.8 % (0.0-2.0); EOSINOPHIL % 3.6 % (0-5); GRANULOCYTE % 71.7 % (42.2-75.2); HEMATOCRIT 25.5 % (42-52); MEAN CORPUSCULAR HGB 29.7 PG (27.0-31.0); MEAN CORPUSCULAR HGB CONC 32.7 G/DL (33.0-37.0); MEAN CORPUSCULAR VOLUME 90.8 FL (80.0-94.0); MEAN PLATELET VOLUME 8.6 FL (7.4-10.4); PLATELET COUNT 153 /CUMM (130-400); RBC DISTRIBUTION WIDTH 16.1 % (11.5-14.5); RED BLOOD CELL CT 2.81 /CUMM (4.70-6.10); WHITE BLOOD CELL COUNT 5.4 /CUMM (4.8-10.8)
--- NOTE | 2017-12-03 12:32 | PN- Nephrology ---
Assessment/Plan Nephrology Assessment: CINDI - 2/2 obstructive uropathy. Non-oliguric although remains with severely reduced renal function. Given that his renal function has not recovered, it's his only medical issue keeping him in the hospital, and I honestly don't know if he'll end up recovering, I think it'd be reasonable to discharge him as an "CINDI " and monitor labs at outpatient dialysis. Should note that URR demonstrated that 3.5hrs for dialysis is adequate. ?CKD - Presented to [facility] in August 2015 with a Cr of 17 and moderate-severe b/l hydro on Renal US - discharged with chronic hall. Noncompliant with follow -up. Not clear exactly where renal function ended up but may have been significant. Anemia - a marker of length of renal injury. Is on an MIHAELA. Functional iron deficiency - has been started on IV iron. Hypocalcemia - Improved on current regimen. Suggestion: -No HD need today; plan for tomorrow -Cont MIHAELA and course of IV iron -Cont high Ca bath, Ca based binders, and Calcitriol Outpatient coordinator notified to start looking for outpatient dialysis seat - will monitor for possible renal recovery as an outpatient. Will hold off on permanent access placement at this time Please call [phone] with ?'s Subjective Subjective: HD performed yesterday 2150cc UOP No complaints Objective Vital Signs and I&Os Vital Signs Date Time Temp Pulse Resp B/P B/P Pulse O2 O2 Flow FiO2 Mean Ox Delivery Rate 12/03 0547 98.6 82 20 118/58 94 Room Air 12/02 2232 98.2 107 20 125/84 97 Room Air 12/02 1839 98.2 107 18 112/64 91 12/02 1400 98.5 98 18 95/65 96 Room Air Intake & Output 12/03 1600 12/03 0400 12/02 1600 12/02 0400 12/01 1600 12/01 0400 Intake Total 400 873 185 0606 500 Output Total 438 028 7356 550 800 75 Balance -700 -100 -730 250 920 425 Intake, IV 0 Intake, Oral 400 093 939 0000 500 Number 0 Bowel Movements Output, Urine 586 732 1423 550 800 75 Patient 210 lb 209 lb 208 lb 207 lb Weight Weight Bed scale Bed scale Bed scale Measurement Method Physical Exam: Gen - NAD HEENT - supple CV - RRR, no m/r/g Chest - clear, no w/r/r Abd - soft, NTND Ext - warm, no edema Neuro - AOX3, grossly nonfocal Access - BILL cath Current Medications: Current Medications Sig/James Start time Last Medication Dose Route Stop Time Status Admin Calcitriol 1 MCG MoWeFr 11/22 1400 AC 11/29 IV 1252 Calcium Acetate 2,001 MG WM 11/22 1200 AC 12/03 PO 1104 Epoetin Lizandro 6,000 UNIT MoWeFr 11/22 1359 AC 11/29 IV 1252 Ferric Sodium 125 MG MoWeFr@0900 11/27 0900 AC 11/29 Gluconate Complex IV 12/13 0959 1252 Sodium Chloride 100 ML Levetiracetam 250 MG BID 11/23 2100 AC 12/03 PO 0810 Omeprazole 40 MG DAILY AC 11/29 0822 AC 12/03 PO 0614 Patient Medication 1 ED ONE ONE 12/02 1315 DC Teaching ED 12/02 1316 Results Pertinent Lab Results: Laboratory Tests 12/03 12/02 0715 1739 Chemistry Sodium (137 - 145 mmol/L) 140 Potassium (3.5 - 5.1 mmol/L) 4.8 Chloride (98 - 107 mmol/L) 104 Carbon Dioxide (22 - 30 mmol/L) 24 Anion Gap (5 - 16) 12 BUN (9 - 20 mg/dL) 40 H 25 H Creatinine (0.7 - 1.2 mg/dL) 5.8 *H Estimated GFR (>60 ml/min) 10 L BUN/Creatinine Ratio (7 - 25 %) 6.9 L Hematology CBC w Diff NO MAN DIFF REQ WBC (4.8 - 10.8 /CUMM) 5.4 RBC (4.70 - 6.10 /CUMM) 2.81 L Hgb (14.0 - 18.0 G/DL) 8.4 L Hct (42 - 52 %) 25.5 L MCV (80.0 - 94.0 FL) 90.8 MCH (27.0 - 31.0 PG) 29.7 MCHC (33.0 - 37.0 G/DL) 32.7 L RDW (11.5 - 14.5 %) 16.1 H Plt Count (130 - 400 /CUMM) 153 MPV (7.4 - 10.4 FL) 8.6 Gran % (42.2 - 75.2 %) 71.7 Lymphocytes % (20.5 - 51.1 %) 13.8 L Monocytes % (1.7 - 9.3 %) 10.1 H Eosinophils % (0 - 5 %) 3.6 Basophils % (0.0 - 2.0 %) 0.8 Absolute Granulocytes (1.4 - 6.5 /CUMM) 3.8 Absolute Lymphocytes (1.2 - 3.4 /CUMM) 0.7 L Absolute Monocytes (0.10 - 0.60 /CUMM) 0.5 Absolute Eosinophils (0.0 - 0.7 /CUMM) 0.2 Absolute Basophils (0.0 - 0.2 /CUMM) 0 12/02 12/02 1400 0845 Chemistry Sodium (137 - 145 mmol/L) 141 140 Potassium (3.5 - 5.1 mmol/L) 4.2 4.5 Chloride (98 - 107 mmol/L) 102 103 Carbon Dioxide (22 - 30 mmol/L) 22 20 L Anion Gap (5 - 16) 17 H 17 H BUN (9 - 20 mg/dL) 75 H 70 H Creatinine (0.7 - 1.2 mg/dL) 9.9 *H 9.7 *H Estimated GFR (>60 ml/min) 5 L 6 L BUN/Creatinine Ratio (7 - 25 %) 7.6 7.2 Calcium (8.4 - 10.2 mg/dL) 8.2 L Phosphorus (2.5 - 4.5 mg/dL) 4.4 Magnesium (1.6 - 2.3 mg/dL) 1.8 Albumin (3.5 - 5.0 g/dL) 3.1 L Hematology CBC w Diff NO MAN DIFF REQ NO MAN DIFF REQ WBC (4.8 - 10.8 /CUMM) 6.6 6.0 RBC (4.70 - 6.10 /CUMM) 2.68 L 2.77 L Hgb (14.0 - 18.0 G/DL) 8.1 L 8.3 L Hct (42 - 52 %) 24.0 L 24.8 L MCV (80.0 - 94.0 FL) 89.7 89.7 MCH (27.0 - 31.0 PG) 30.4 29.9 MCHC (33.0 - 37.0 G/DL) 33.8 33.3 RDW (11.5 - 14.5 %) 15.3 H 15.5 H Plt Count (130 - 400 /CUMM) 169 167 MPV (7.4 - 10.4 FL) 8.6 8.6 Gran % (42.2 - 75.2 %) 74.1 75.8 H Lymphocytes % (20.5 - 51.1 %) 15.4 L 13.4 L Monocytes % (1.7 - 9.3 %) 7.4 5.8 Eosinophils % (0 - 5 %) 2.5 4.1 Basophils % (0.0 - 2.0 %) 0.6 0.9 Absolute Granulocytes (1.4 - 6.5 /CUMM) 4.9 4.5 Absolute Lymphocytes (1.2 - 3.4 /CUMM) 1.0 L 0.8 L Absolute Monocytes (0.10 - 0.60 /CUMM) 0.5 0.3 Absolute Eosinophils (0.0 - 0.7 /CUMM) 0.2 0.2 Absolute Basophils (0.0 - 0.2 /CUMM) 0 0.1 06/17 0643 Chemistry Sodium (137 - 145 mmol/L) 140 Potassium (3.5 - 5.1 mmol/L) 4.2 Chloride (98 - 107 mmol/L) 102 Carbon Dioxide (22 - 30 mmol/L) 24 Anion Gap (5 - 16) 14 BUN (9 - 20 mg/dL) 55 H Creatinine (0.7 - 1.2 mg/dL) 8.6 *H Estimated GFR (>60 ml/min) 6 L BUN/Creatinine Ratio (7 - 25 %) 6.4 L Hematology CBC w Diff NO MAN DIFF REQ WBC (4.8 - 10.8 /CUMM) 7.3 RBC (4.70 - 6.10 /CUMM) 2.85 L Hgb (14.0 - 18.0 G/DL) 8.4 L Hct (42 - 52 %) 25.5 L MCV (80.0 - 94.0 FL) 89.6 MCH (27.0 - 31.0 PG) 29.4 MCHC (33.0 - 37.0 G/DL) 32.8 L RDW (11.5 - 14.5 %) 16.1 H Plt Count (130 - 400 /CUMM) 167 MPV (7.4 - 10.4 FL) 8.8 Gran % (42.2 - 75.2 %) 72.5 Lymphocytes % (20.5 - 51.1 %) 14.7 L Monocytes % (1.7 - 9.3 %) 8.6 Eosinophils % (0 - 5 %) 3.7 Basophils % (0.0 - 2.0 %) 0.5 Absolute Granulocytes (1.4 - 6.5 /CUMM) 5.3 Absolute Lymphocytes (1.2 - 3.4 /CUMM) 1.1 L Absolute Monocytes (0.10 - 0.60 /CUMM) 0.6 Absolute Eosinophils (0.0 - 0.7 /CUMM) 0.3 Absolute Basophils (0.0 - 0.2 /CUMM) 0 Imaging/Other Studies: None new
[2017-12-03 14:27] VITALS: BP 110/58
[2017-12-03 22:40] VITALS: BP 100/68
[2017-12-04 06:14] VITALS: BP 116/66
--- NOTE | 2017-12-04 07:12 | PN- Housestaff ---
Subjective Follow-up For: CINDI with possible underlying CKD on HD Seizures, unknown etiology Electrolyte abnormalities - Hypocalcemia, hyperphosphatemia - resolved Anemia of chronic disease possibly 2/2 to CKD Subjective: Patient resting comfortably, does not have any active complaints. Review of Systems Constitutional: Reports: no symptoms. EENTM: Reports: no symptoms. Cardiovascular: Reports: no symptoms. Respiratory: Reports: no symptoms. Gastrointestinal: Reports: no symptoms. Genitourinary: Reports: no symptoms. Musculoskeletal: Reports: no symptoms. Skin: Reports: no symptoms. Neurological/Psychological: Reports: no symptoms. Hematologic/Endocrine: Reports: no symptoms. Immunologic/Allergic: Reports: no symptoms. Objective Last 24 Hrs of Vital Signs/I&O Vital Signs Date Time Temp Pulse Resp B/P B/P Pulse O2 O2 Flow FiO2 Mean Ox Delivery Rate 12/04 0614 98.3 84 16 116/66 92 Room Air 12/03 2240 99.5 60 17 100/68 92 Room Air 12/03 1427 98.5 80 18 110/58 92 Room Air Intake & Output 12/04 1600 12/04 0800 12/04 0000 Intake Total 240 Output Total 850 500 Balance -610 -500 Intake, Oral 240 Output, Urine 850 500 Patient 208 lb Weight Physical Exam General Appearance: Alert, Oriented X3, Cooperative, No Acute Distress Skin: No Rashes, No Breakdown Cardiovascular: Regular Rate, Normal S1, Normal S2 Lungs: Clear to Auscultation, Normal Air Movement Abdomen: Normal Bowel Sounds, Soft, No Tenderness Extremities: No Clubbing, No Cyanosis, No Edema Current Medications: Current Medications Sig/James Start time Last Medication Dose Route Stop Time Status Admin Calcitriol 1 MCG MoWeFr 11/22 1400 AC 11/29 IV 1252 Calcium Acetate 2,001 MG WM 11/22 1200 AC 12/04 PO 0718 Epoetin Lizandro 6,000 UNIT MoWeFr 11/22 1359 AC 11/29 IV 1252 Ferric Sodium 125 MG MoWeFr@0900 11/27 0900 AC 11/29 Gluconate Complex IV 12/13 0959 1252 Sodium Chloride 100 ML Levetiracetam 250 MG BID 11/23 2100 AC 12/04 PO 0718 Omeprazole 40 MG DAILY AC 11/29 0822 AC 12/04 PO 0550 Patient Medication 1 ED ONE ONE 12/04 1200 DE Teaching ED 12/04 1201 Assessment/Plan Assessment: 62-year-old male with significant past medical history of prostate surgery( 3years ago), bilateral ureteral stent? Etiology, seizure disorder not on antiepileptic presented for chief complaints of shortness of breath on exertion. #CINDI on CKD s/p HD tunneled catheter placement #Hypocalemia - 2/2 hyperphosphatemia and RF - resolved #Seizures - unclear etiology - stable #BL hydronephrosis s/p stent replacement and hall #AGMA - resolved #AMS - resolved #UTI - ruled out Plan: Labs from this morning are pending. Dialysis today. Patient will be discharged home after dialysis on Saturday. Continue Leviracetam, Calcitriol, Calcium Acetate Continue Epogen Continue Hall; will discuss with urology if he can be removed and voiding trials can be started before discharge. Continue Keppra Appreciate Nephro recommendations Appreciate Uro recommendations DVT ppx: ALPS Code: Full Problem List: 1. Hydronephrosis concurrent with and due to calculi of kidney and ureter 2. Seizure Pain Ratin Pain Location: Non- Pain Goal: Remain pain free Pain Plan: Pain Pathway Tomorrow's Labs & Rationales: BEP(CINDI on CKD, on hemodialysis)
--- NOTE | 2017-12-04 07:57 | PN- Student ---
Subjective Subjective: Patient has no new complaints. He slept well and is ready for dialysis today. He has continued to try to increase his water intake and reports increased urination. He has no pain, and denies nausea, vomiting, fever, chills, diarrhea , and seizures. Objective Objective: Physical Exam: General: Patient was sleeping upon entering the room. He awoke easily and was alert and oriented. He was well spoken and pleasant. Skin: Warm and dry. No edema in LE. Heart: Regular rate and rhythm with no rubs, clicks or gallops. Lungs: Clear bilaterally. Even chest expansion on inspiration. : Urine in hall was clear and light yellow. Results Results: Laboratory Tests 12/03/17 0715: Anion Gap 12, Estimated GFR 10 L, BUN/Creatinine Ratio 6.9 L, CBC w Diff NO MAN DIFF REQ, RBC 2.81 L, MCV 90.8, MCH 29.7, MCHC 32.7 L, RDW 16.1 H, MPV 8.6, Gran % 71.7, Lymphocytes % 13.8 L, Monocytes % 10.1 H, Eosinophils % 3.6, Basophils % 0.8, Absolute Granulocytes 3.8, Absolute Lymphocytes 0.7 L, Absolute Monocytes 0.5, Absolute Eosinophils 0.2, Absolute Basophils 0 12/02/17 1739: 12/02/17 1400: Anion Gap 17 H, Estimated GFR 5 L, BUN/Creatinine Ratio 7.6, Calcium 8.2 L, Phosphorus 4.4, Magnesium 1.8, Albumin 3.1 L, CBC w Diff NO MAN DIFF REQ, RBC 2.68 L, MCV 89.7, MCH 30.4, MCHC 33.8, RDW 15.3 H, MPV 8.6, Gran % 74.1, Lymphocytes % 15.4 L, Monocytes % 7.4, Eosinophils % 2.5, Basophils % 0.6, Absolute Granulocytes 4.9, Absolute Lymphocytes 1.0 L, Absolute Monocytes 0.5, Absolute Eosinophils 0.2, Absolute Basophils 0 12/02/17 0845: Anion Gap 17 H, Estimated GFR 6 L, BUN/Creatinine Ratio 7.2, CBC w Diff NO MAN DIFF REQ, RBC 2.77 L, MCV 89.7, MCH 29.9, MCHC 33.3, RDW 15.5 H, MPV 8.6, Gran % 75.8 H, Lymphocytes % 13.4 L, Monocytes % 5.8, Eosinophils % 4.1, Basophils % 0.9, Absolute Granulocytes 4.5, Absolute Lymphocytes 0.8 L, Absolute Monocytes 0.3, Absolute Eosinophils 0.2, Absolute Basophils 0.1 Assessment/Plan Assessment: Patient is a 62 year old male with medical history of BPH, bilateral uretal stent placement, seizures, and AKF with dialysis three years prior. We have been monitoring the patient's creatinine levels over the patient's time in the hospital. It appears after dialysis, his creatinine levels are lower, and then climb until his next session. It is unclear at this point if he will establish a new baseline. [place] any acute changes, it is reasonable to manage him with outpatient dialysis and re-evaluate with outpatient nephrology. We are waiting on placement at an outpatient dialysis facility. His seizures appear to be well controlled with the Levetiracetam, as he has reported none recently. Labs today have not been received, but prior labs showed continued anemia and hypocalcemia. Plan: CINDI: Awaiting lab results and placement in a dialysis outpatient facilty. Plan to remove hall and consider discharge once these tasks have been accomplished. Follow up with urology. Seizures: Continue Levetiracetan. Anemia: Continue Epoetin Lizandro and Ferric Sodium Gluconate. Calcium levels: Continue Calcitriol and Calcium Acetate.
--- NOTE | 2017-12-04 11:38 | PN- Nephrology ---
See Addendum Assessment/Plan Nephrology Assessment: CINDI - 2/2 obstructive uropathy. UOP picking up although with pre-HD SCr of 9.9, his kidneys are still not working. Given that his renal function has not recovered, it's his only medical issue keeping him in the hospital, and I honestly don't know if he'll end up recovering, I think it'd be reasonable to discharge him as an "CINDI" and monitor labs at outpatient dialysis - he has a spot at the [facility] on Saturday at 3pm - will need to get HD on Saturday prior to discharge. Should note that URR demonstrated that 3.5hrs for dialysis is adequate. ?CKD - Presented to [facility] in August 2015 with a Cr of 17 and moderate-severe b/l hydro on Renal US - discharged with chronic hall. Noncompliant with follow -up. Not clear exactly where renal function ended up but may have been significant. Anemia - a marker of length of renal injury. Is on an MIHAELA. Functional iron deficiency - has been started on IV iron. Hypocalcemia - Improved on current regimen. Suggestion: -HD today - switch to 2K bath -HD Saturday -Cont MIHAELA and course of IV iron -Cont high Ca bath, Ca based binders, and Calcitriol Has a spot at the [facility] on Saturday at 3pm. From a renal standpoint, should be medically stable to leave after dialysis on Saturday. Please call [phone] with ?'s Subjective Subjective: No new labs today SCr 9.9 prior to HD yesterday 2L UOP No somatic complaints Objective Vital Signs and I&Os Vital Signs Date Time Temp Pulse Resp B/P B/P Pulse O2 O2 Flow FiO2 Mean Ox Delivery Rate 12/04 0614 98.3 84 16 116/66 92 Room Air 12/03 2240 99.5 60 17 100/68 92 Room Air 12/03 1427 98.5 80 18 110/58 92 Room Air Intake & Output 12/04 1600 12/04 0400 12/03 1600 12/03 0400 12/02 1600 12/02 0400 Intake Total 240 650 400 920 800 Output Total 624 778 6842 500 1650 550 Balance -610 -500 -850 -100 -730 250 Intake, Oral 240 650 400 920 800 Output, Urine 544 546 3636 500 1650 550 Patient 208 lb 210 lb 209 lb 208 lb Weight Weight Bed scale Bed scale Measurement Method Physical Exam: Gen - NAD HEENT - supple CV - RRR, no m/r/g Chest - clear, no w/r/r Abd - soft, NTND Ext - warm, no edema Neuro - AOX3, grossly nonfocal Access - BILL cath Current Medications: Current Medications Sig/James Start time Last Medication Dose Route Stop Time Status Admin Calcitriol 1 MCG MoWeFr 11/22 1400 AC 11/29 IV 1252 Calcium Acetate 2,001 MG WM 11/22 1200 AC 12/04 PO 0718 Epoetin Lizandro 6,000 UNIT MoWeFr 11/22 1359 AC 11/29 IV 1252 Ferric Sodium 125 MG MoWeFr@0900 11/27 0900 AC 11/29 Gluconate Complex IV 12/13 0959 1252 Sodium Chloride 100 ML Levetiracetam 250 MG BID 11/23 2100 AC 12/04 PO 0718 Omeprazole 40 MG DAILY AC 11/29 0822 AC 12/04 PO 0550 Results Pertinent Lab Results: Laboratory Tests 12/03 12/02 0715 1739 Chemistry Sodium (137 - 145 mmol/L) 140 Potassium (3.5 - 5.1 mmol/L) 4.8 Chloride (98 - 107 mmol/L) 104 Carbon Dioxide (22 - 30 mmol/L) 24 Anion Gap (5 - 16) 12 BUN (9 - 20 mg/dL) 40 H 25 H Creatinine (0.7 - 1.2 mg/dL) 5.8 *H Estimated GFR (>60 ml/min) 10 L BUN/Creatinine Ratio (7 - 25 %) 6.9 L Hematology CBC w Diff NO MAN DIFF REQ WBC (4.8 - 10.8 /CUMM) 5.4 RBC (4.70 - 6.10 /CUMM) 2.81 L Hgb (14.0 - 18.0 G/DL) 8.4 L Hct (42 - 52 %) 25.5 L MCV (80.0 - 94.0 FL) 90.8 MCH (27.0 - 31.0 PG) 29.7 MCHC (33.0 - 37.0 G/DL) 32.7 L RDW (11.5 - 14.5 %) 16.1 H Plt Count (130 - 400 /CUMM) 153 MPV (7.4 - 10.4 FL) 8.6 Gran % (42.2 - 75.2 %) 71.7 Lymphocytes % (20.5 - 51.1 %) 13.8 L Monocytes % (1.7 - 9.3 %) 10.1 H Eosinophils % (0 - 5 %) 3.6 Basophils % (0.0 - 2.0 %) 0.8 Absolute Granulocytes (1.4 - 6.5 /CUMM) 3.8 Absolute Lymphocytes (1.2 - 3.4 /CUMM) 0.7 L Absolute Monocytes (0.10 - 0.60 /CUMM) 0.5 Absolute Eosinophils (0.0 - 0.7 /CUMM) 0.2 Absolute Basophils (0.0 - 0.2 /CUMM) 0 12/02 12/02 1400 0845 Chemistry Sodium (137 - 145 mmol/L) 141 140 Potassium (3.5 - 5.1 mmol/L) 4.2 4.5 Chloride (98 - 107 mmol/L) 102 103 Carbon Dioxide (22 - 30 mmol/L) 22 20 L Anion Gap (5 - 16) 17 H 17 H BUN (9 - 20 mg/dL) 75 H 70 H Creatinine (0.7 - 1.2 mg/dL) 9.9 *H 9.7 *H Estimated GFR (>60 ml/min) 5 L 6 L BUN/Creatinine Ratio (7 - 25 %) 7.6 7.2 Calcium (8.4 - 10.2 mg/dL) 8.2 L Phosphorus (2.5 - 4.5 mg/dL) 4.4 Magnesium (1.6 - 2.3 mg/dL) 1.8 Albumin (3.5 - 5.0 g/dL) 3.1 L Hematology CBC w Diff NO MAN DIFF REQ NO MAN DIFF REQ WBC (4.8 - 10.8 /CUMM) 6.6 6.0 RBC (4.70 - 6.10 /CUMM) 2.68 L 2.77 L Hgb (14.0 - 18.0 G/DL) 8.1 L 8.3 L Hct (42 - 52 %) 24.0 L 24.8 L MCV (80.0 - 94.0 FL) 89.7 89.7 MCH (27.0 - 31.0 PG) 30.4 29.9 MCHC (33.0 - 37.0 G/DL) 33.8 33.3 RDW (11.5 - 14.5 %) 15.3 H 15.5 H Plt Count (130 - 400 /CUMM) 169 167 MPV (7.4 - 10.4 FL) 8.6 8.6 Gran % (42.2 - 75.2 %) 74.1 75.8 H Lymphocytes % (20.5 - 51.1 %) 15.4 L 13.4 L Monocytes % (1.7 - 9.3 %) 7.4 5.8 Eosinophils % (0 - 5 %) 2.5 4.1 Basophils % (0.0 - 2.0 %) 0.6 0.9 Absolute Granulocytes (1.4 - 6.5 /CUMM) 4.9 4.5 Absolute Lymphocytes (1.2 - 3.4 /CUMM) 1.0 L 0.8 L Absolute Monocytes (0.10 - 0.60 /CUMM) 0.5 0.3 Absolute Eosinophils (0.0 - 0.7 /CUMM) 0.2 0.2 Absolute Basophils (0.0 - 0.2 /CUMM) 0 0.1 Imaging/Other Studies: EXAM TYPE: US - US-RENAL/KIDNEY EXAMINATION: US RETROPERITONEAL COMPLETE (RENAL) CLINICAL INFORMATION: Right-sided hydronephrosis. Left mid. Need to know the improvement in change in size of the kidney. COMPARISON: 11/21/2017 TECHNIQUE: Real-time imaging of the kidneys and bladder. FINDINGS: RIGHT KIDNEY: 10.6 x 4.8 x 5.3 cm (SAG x AP x TRV). The kidney is normal in size, contour, and echogenicity. Renal cortical thickness is normal. No calculi or focal parenchymal lesions. Previously seen hydronephrosis is significantly improved. There is slight prominence of the right renal pelvis but no residual calyceal dilation. LEFT KIDNEY: 9.4 x 4.8 x 3.1 cm (SAG x AP x TRV). There is increased renal cortical echogenicity suggesting medical renal disease. Renal cortical thickness is normal. No calculi or focal parenchymal lesions. The left renal collecting system is fully decompressed. BLADDER: There is a Hall catheter within a minimally distended urinary bladder. Neither ureteral jet identified. IMPRESSION: Previously seen hydronephrosis is significantly improved. There is slight prominence of the right renal pelvis but no residual calyceal dilation. Previously seen right renal stent no longer seen. The left renal collecting system is fully decompressed. Previously seen left sided stent is no longer seen. There is mildly increased left renal cortical echogenicity suggesting medical renal disease.
--- NOTE | 2017-12-04 12:44 | PN- Att Addend ---
Attending Addendum Attending Brief Note Patient seen and examined, denies any complaints. Overall doing okay. Creatinine from this morning is pending. Per nephrology, patient does have an outpatient dialysis slot for next Saturday. So he can receive his dialysis on this coming Saturday and then leave. Please check with urology about the status for the Murillo catheter. If this can be discontinued in the next day or 2 that patient can have a voiding trial while he still in the hospital. Continue other current medications
[2017-12-04 15:56] LABS: ABSOLUTE BASOPHIL COUNT 0.1 /CUMM (0.0-0.2); ABSOLUTE EOSINOPHIL COUNT 0.2 /CUMM (0.0-0.7); ABSOLUTE GRANULOCYTE CT 4.3 /CUMM (1.4-6.5); ABSOLUTE MONOCYTE COUNT 0.5 /CUMM (0.10-0.60); BASOPHIL % 1.2 % (0.0-2.0); HEMATOCRIT 25.9 % (42-52); MEAN CORPUSCULAR HGB CONC 32.7 G/DL (33.0-37.0); MEAN CORPUSCULAR VOLUME 91.6 FL (80.0-94.0); MEAN PLATELET VOLUME 9.1 FL (7.4-10.4); PLATELET COUNT 162 /CUMM (130-400); RBC DISTRIBUTION WIDTH 17.1 % (11.5-14.5); RED BLOOD CELL CT 2.83 /CUMM (4.70-6.10)
[2017-12-04 16:00] VITALS: BP 11/58; BP 111/58
[2017-12-04 22:38] VITALS: BP 117/68
[2017-12-05 05:50] VITALS: BP 120/68
--- NOTE | 2017-12-05 07:28 | PN- Housestaff ---
Subjective Follow-up For: CINDI with possible underlying CKD on HD Seizures, unknown etiology Electrolyte abnormalities - Hypocalcemia, hyperphosphatemia - resolved Anemia of chronic disease possibly 2/2 to CKD Subjective: Patient resting comfortably, does not have any active complaints. Wants to know when he will be able to go back to work after discharge. Hall catheter removed yesterday, able to void on his own, no pain/burning with urination and denies blood in urine. Review of Systems Constitutional: Reports: no symptoms. EENTM: Reports: no symptoms. Cardiovascular: Reports: no symptoms. Respiratory: Reports: no symptoms. Gastrointestinal: Reports: no symptoms. Genitourinary: Reports: no symptoms. Musculoskeletal: Reports: no symptoms. Skin: Reports: no symptoms. Neurological/Psychological: Reports: no symptoms. Hematologic/Endocrine: Reports: no symptoms. Immunologic/Allergic: Reports: no symptoms. Objective Last 24 Hrs of Vital Signs/I&O Vital Signs Date Time Temp Pulse Resp B/P B/P Pulse O2 O2 Flow FiO2 Mean Ox Delivery Rate 12/05 1335 113 12/05 1334 98.5 113 20 116/74 94 Room Air 12/05 0550 98.4 93 18 120/68 95 Room Air 12/04 2238 98.6 94 20 117/68 94 Room Air 12/04 1600 98.7 110 20 111/58 92 Room Air Intake & Output 12/05 1600 12/05 0800 12/05 0000 Intake Total 1000 1440 720 Output Total 600 625 625 Balance 400 815 95 Intake, IV 0 0 Intake, Oral 1000 1440 720 Number 0 0 Bowel Movements Output, Urine 600 625 625 Patient 207 lb Weight Weight Bed scale Measurement Method Physical Exam General Appearance: Alert, Oriented X3, Cooperative Skin: No Rashes, No Breakdown Cardiovascular: Regular Rate, Normal S1, Normal S2 Lungs: Clear to Auscultation, Normal Air Movement Abdomen: Normal Bowel Sounds, Soft, No Tenderness Extremities: No Clubbing, No Cyanosis, No Edema Current Medications: Current Medications Sig/James Start time Last Medication Dose Route Stop Time Status Admin Calcitriol 1 MCG MoWeFr 11/22 1400 AC 12/04 IV 1742 Calcium Acetate 2,001 MG WM 11/22 1200 AC 12/05 PO 1316 Epoetin Lizandro 6,000 UNIT MoWeFr 11/22 1359 AC 12/04 IV 1741 Ferric Sodium 125 MG MoWeFr@0900 11/27 0900 AC 12/04 Gluconate Complex IV 12/13 0959 1740 Sodium Chloride 100 ML Heparin Sodium 5,000 UNIT Q8 12/05 1439 AC (Porcine) SC Levetiracetam 250 MG BID 11/23 2100 AC 12/05 PO 0809 Omeprazole 40 MG DAILY AC 11/29 0822 AC 12/05 PO 0535 Last 24 Hrs of Lab/Jerrod Results Last 24 Hrs of Labs/Mics: Laboratory Tests 12/05/17 0725: Anion Gap 12, Estimated GFR 11 L, BUN/Creatinine Ratio 6.9 L Assessment/Plan Assessment: 62-year-old male with significant past medical history of prostate surgery( 3years ago), bilateral ureteral stent? Etiology, seizure disorder not on antiepileptic presented for chief complaints of shortness of breath on exertion. #CINDI on CKD s/p HD tunneled catheter placement #Hypocalemia - 2/2 hyperphosphatemia and RF - resolved #Seizures - unclear etiology - stable #BL hydronephrosis s/p stent replacement and hall #AGMA - resolved #AMS - resolved Plan: Cr 5.2 after the Dialysis yesterday. Patient will be discharged home after next dialysis on Saturday. Continue Leviracetam, Calcitriol, Calcium Acetate. Continue Epogen Hall romeved yesterday, successful voidng trial. Continue Keppra Appreciate Nephro recommendations Appreciate Uro recommendations DVT ppx: ALPS Code: Full Problem List: 1. ARF (acute renal failure) 2. Hydronephrosis concurrent with and due to calculi of kidney and ureter Pain Ratin Pain Location: NA Pain Goal: Remain pain free Pain Plan: Pain Pathway Tomorrow's Labs & Rationales: BEP(CINDI on Dialysis)
--- NOTE | 2017-12-05 08:02 | PN- Student ---
Subjective Subjective: Patient states no complaints overnight. He was glad to have the hall removed yesterday evening and reports a successful voiding trial. He notes that his urinations have been increasing in volume each time and he has been trying to drink more water. He denies nausea, vomiting, fevers, chills, or seizures. Objective Objective: Physical: General: Patient was found resting. He was alert and oriented, pleasant, and well spoken. Skin: Warm and dry, no edema noted in lower extremities. Heart: Regular rate and rhythm, no rubs, clicks, or gallops. Lungs: Clear bilaterally. Even thoracic expansion. Results Results: Laboratory Tests 12/05/17 0725: Anion Gap 12, Estimated GFR 11 L, BUN/Creatinine Ratio 6.9 L 12/04/17 1150: Anion Gap 14, Estimated GFR 7 L, BUN/Creatinine Ratio 7.4, CBC w Diff NO MAN DIFF REQ, RBC 2.83 L, MCV 91.6, MCH 30.0, MCHC 32.7 L, RDW 17.1 H, MPV 9.1, Gran % 71.0, Lymphocytes % 16.2 L, Monocytes % 8.6, Eosinophils % 3.0, Basophils % 1.2, Absolute Granulocytes 4.3, Absolute Lymphocytes 1.0 L, Absolute Monocytes 0.5, Absolute Eosinophils 0.2, Absolute Basophils 0.1 12/03/17 0715: Anion Gap 12, Estimated GFR 10 L, BUN/Creatinine Ratio 6.9 L, CBC w Diff NO MAN DIFF REQ, RBC 2.81 L, MCV 90.8, MCH 29.7, MCHC 32.7 L, RDW 16.1 H, MPV 8.6, Gran % 71.7, Lymphocytes % 13.8 L, Monocytes % 10.1 H, Eosinophils % 3.6, Basophils % 0.8, Absolute Granulocytes 3.8, Absolute Lymphocytes 0.7 L, Absolute Monocytes 0.5, Absolute Eosinophils 0.2, Absolute Basophils 0 12/02/17 9244: Assessment/Plan Assessment: Patient is a 62 year old male with medical history of BPH, bilateral uretal stent placement, seizures, and AKF with dialysis three years prior. We have been monitoring the patient's creatinine levels over the patient's time in the hospital. Labs today for creatinine are lower, but this is consistent with his prior pattern - after dialysis, his creatinine levels are lower, and then tend to climb until his next session. It is unclear at this point if he will establish a new baseline. [place] any acute changes, it is reasonable to manage him with outpatient dialysis and re-evaluate with outpatient nephrology. He has been placed with an outpatient dialysis facility, and his first appointment will be next Saturday (12/10/17). His potassium was noted to be elevated, but was measured prior to today's dialysis. His seizures appear to be well controlled with the Levetiracetam, as he has reported none recently. Plan: CINDI: Placement has been arranged for outpatient dialysis for Saturday (12/10/17) . He will continue to have dialysis inpatient on Saturday (12/07/17) and will be discharged after Saturday's dialysis baring any acute events. He will be instructed to follow up with nephrology for kidney evaluation. We will consult with nephrology to prepare an outpatient medication list. Monitor for changes in potassium with tomorrow's labs. Seizures: Continue Levetiracetan. Anemia: Continue Epoetin Lizandro and Ferric Sodium Gluconate. Calcium levels: Continue Calcitriol and Calcium Acetate.
--- NOTE | 2017-12-05 11:33 | PN- Nephrology ---
Assessment/Plan Nephrology Assessment: CINDI - 2/2 obstructive uropathy. UOP picking up although with pre-HD SCr of 9.9, his kidneys are still not working. Given that his renal function has not recovered, it's his only medical issue keeping him in the hospital, and I honestly don't know if he'll end up recovering, I think it'd be reasonable to discharge him as an "CINDI" and monitor labs at outpatient dialysis - he has a spot at the [facility] on Saturday at 3pm - will need to get HD on Saturday prior to discharge. Should note that URR demonstrated that 3.5hrs for dialysis is adequate. ?CKD - Presented to [facility] in August 2015 with a Cr of 17 and moderate-severe b/l hydro on Renal US - discharged with chronic hall. Noncompliant with follow -up. Not clear exactly where renal function ended up but may have been significant. Anemia - a marker of length of renal injury. Is on an MIHAELA. Functional iron deficiency - has been started on IV iron. Hypocalcemia - Improved on current regimen. Suggestion: -No HD need today -Plan for HD on Saturday -HD bath going forward will be 2K/3Ca; EDW approx 94kg -Will need trial of void with post-void PVR -Urology follow-up -Cont Ca based binders and calcitriol with dialysis Has a spot at the [facility] on Saturday at 3pm. From a renal standpoint, should be medically stable to leave after dialysis on Saturday. Please call [phone] with ?'s Subjective Subjective: HD performed yesterday Hall catheter removed - says urinating OK 1825cc UOP Objective Vital Signs and I&Os Vital Signs Date Time Temp Pulse Resp B/P B/P Pulse O2 O2 Flow FiO2 Mean Ox Delivery Rate 12/05 0550 98.4 93 18 120/68 95 Room Air 12/04 2238 98.6 94 20 117/68 94 Room Air 12/04 1600 98.7 110 20 111/58 92 Room Air Intake & Output 12/05 1600 12/05 0400 12/04 1600 12/04 0400 12/03 1600 12/03 0400 Intake Total 960 1200 720 650 400 Output Total 619 309 5052 500 1500 500 Balance 710 700 -980 -500 -850 -100 Intake, IV 0 0 Intake, Oral 960 1200 720 650 400 Number 0 0 0 Bowel Movements Output, Urine 309 789 4880 500 1500 500 Patient 207 lb 208 lb 210 lb 209 lb Weight Weight Bed scale Bed scale Measurement Method Physical Exam: Gen - NAD HEENT - supple CV - RRR, no m/r/g Chest - clear, no w/r/r Abd - soft, NTND Ext - warm, no edema Neuro - AOX3, grossly nonfocal Access - BILL cath Current Medications: Current Medications Sig/James Start time Last Medication Dose Route Stop Time Status Admin Calcitriol 1 MCG MoWeFr 11/22 1400 AC 12/04 IV 1742 Calcium Acetate 2,001 MG WM 11/22 1200 AC 12/05 PO 0809 Epoetin Lizandro 6,000 UNIT MoWeFr 11/22 1359 AC 12/04 IV 1741 Ferric Sodium 125 MG MoWeFr@0900 11/27 0900 AC 12/04 Gluconate Complex IV 12/13 0959 1740 Sodium Chloride 100 ML Levetiracetam 250 MG BID 11/23 2100 AC 12/05 PO 0809 Omeprazole 40 MG DAILY AC 11/29 0822 AC 12/05 PO 0535 Patient Medication 1 ED ONE ONE 12/04 1200 DC 12/04 Teaching ED 12/04 1201 1740 Results Pertinent Lab Results: Laboratory Tests 12/05 12/04 0725 1150 Chemistry Sodium (137 - 145 mmol/L) 137 142 Potassium (3.5 - 5.1 mmol/L) 4.6 5.2 H Chloride (98 - 107 mmol/L) 101 104 Carbon Dioxide (22 - 30 mmol/L) 24 24 Anion Gap (5 - 16) 12 14 BUN (9 - 20 mg/dL) 36 H 59 H Creatinine (0.7 - 1.2 mg/dL) 5.2 *H 8.0 *H Estimated GFR (>60 ml/min) 11 L 7 L BUN/Creatinine Ratio (7 - 25 %) 6.9 L 7.4 Hematology CBC w Diff NO MAN DIFF REQ WBC (4.8 - 10.8 /CUMM) 6.0 RBC (4.70 - 6.10 /CUMM) 2.83 L Hgb (14.0 - 18.0 G/DL) 8.5 L Hct (42 - 52 %) 25.9 L MCV (80.0 - 94.0 FL) 91.6 MCH (27.0 - 31.0 PG) 30.0 MCHC (33.0 - 37.0 G/DL) 32.7 L RDW (11.5 - 14.5 %) 17.1 H Plt Count (130 - 400 /CUMM) 162 MPV (7.4 - 10.4 FL) 9.1 Gran % (42.2 - 75.2 %) 71.0 Lymphocytes % (20.5 - 51.1 %) 16.2 L Monocytes % (1.7 - 9.3 %) 8.6 Eosinophils % (0 - 5 %) 3.0 Basophils % (0.0 - 2.0 %) 1.2 Absolute Granulocytes (1.4 - 6.5 /CUMM) 4.3 Absolute Lymphocytes (1.2 - 3.4 /CUMM) 1.0 L Absolute Monocytes (0.10 - 0.60 /CUMM) 0.5 Absolute Eosinophils (0.0 - 0.7 /CUMM) 0.2 Absolute Basophils (0.0 - 0.2 /CUMM) 0.1 12/03 12/02 0715 1739 Chemistry Sodium (137 - 145 mmol/L) 140 Potassium (3.5 - 5.1 mmol/L) 4.8 Chloride (98 - 107 mmol/L) 104 Carbon Dioxide (22 - 30 mmol/L) 24 Anion Gap (5 - 16) 12 BUN (9 - 20 mg/dL) 40 H 25 H Creatinine (0.7 - 1.2 mg/dL) 5.8 *H Estimated GFR (>60 ml/min) 10 L BUN/Creatinine Ratio (7 - 25 %) 6.9 L Hematology CBC w Diff NO MAN DIFF REQ WBC (4.8 - 10.8 /CUMM) 5.4 RBC (4.70 - 6.10 /CUMM) 2.81 L Hgb (14.0 - 18.0 G/DL) 8.4 L Hct (42 - 52 %) 25.5 L MCV (80.0 - 94.0 FL) 90.8 MCH (27.0 - 31.0 PG) 29.7 MCHC (33.0 - 37.0 G/DL) 32.7 L RDW (11.5 - 14.5 %) 16.1 H Plt Count (130 - 400 /CUMM) 153 MPV (7.4 - 10.4 FL) 8.6 Gran % (42.2 - 75.2 %) 71.7 Lymphocytes % (20.5 - 51.1 %) 13.8 L Monocytes % (1.7 - 9.3 %) 10.1 H Eosinophils % (0 - 5 %) 3.6 Basophils % (0.0 - 2.0 %) 0.8 Absolute Granulocytes (1.4 - 6.5 /CUMM) 3.8 Absolute Lymphocytes (1.2 - 3.4 /CUMM) 0.7 L Absolute Monocytes (0.10 - 0.60 /CUMM) 0.5 Absolute Eosinophils (0.0 - 0.7 /CUMM) 0.2 Absolute Basophils (0.0 - 0.2 /CUMM) 0 06/18 1400 Chemistry Sodium (137 - 145 mmol/L) 141 Potassium (3.5 - 5.1 mmol/L) 4.2 Chloride (98 - 107 mmol/L) 102 Carbon Dioxide (22 - 30 mmol/L) 22 Anion Gap (5 - 16) 17 H BUN (9 - 20 mg/dL) 75 H Creatinine (0.7 - 1.2 mg/dL) 9.9 *H Estimated GFR (>60 ml/min) 5 L BUN/Creatinine Ratio (7 - 25 %) 7.6 Calcium (8.4 - 10.2 mg/dL) 8.2 L Phosphorus (2.5 - 4.5 mg/dL) 4.4 Magnesium (1.6 - 2.3 mg/dL) 1.8 Albumin (3.5 - 5.0 g/dL) 3.1 L Hematology CBC w Diff NO MAN DIFF REQ WBC (4.8 - 10.8 /CUMM) 6.6 RBC (4.70 - 6.10 /CUMM) 2.68 L Hgb (14.0 - 18.0 G/DL) 8.1 L Hct (42 - 52 %) 24.0 L MCV (80.0 - 94.0 FL) 89.7 MCH (27.0 - 31.0 PG) 30.4 MCHC (33.0 - 37.0 G/DL) 33.8 RDW (11.5 - 14.5 %) 15.3 H Plt Count (130 - 400 /CUMM) 169 MPV (7.4 - 10.4 FL) 8.6 Gran % (42.2 - 75.2 %) 74.1 Lymphocytes % (20.5 - 51.1 %) 15.4 L Monocytes % (1.7 - 9.3 %) 7.4 Eosinophils % (0 - 5 %) 2.5 Basophils % (0.0 - 2.0 %) 0.6 Absolute Granulocytes (1.4 - 6.5 /CUMM) 4.9 Absolute Lymphocytes (1.2 - 3.4 /CUMM) 1.0 L Absolute Monocytes (0.10 - 0.60 /CUMM) 0.5 Absolute Eosinophils (0.0 - 0.7 /CUMM) 0.2 Absolute Basophils (0.0 - 0.2 /CUMM) 0 Imaging/Other Studies: None new
--- NOTE | 2017-12-05 11:56 | PN- Att Addend ---
Attending Addendum Attending Brief Note Patient seen and examined, offers no complaints. Murillo catheter was discontinued yesterday and patient was able to void without any issues. Vital Signs Date Time Temp Pulse Resp B/P B/P Pulse O2 O2 Flow FiO2 Mean Ox Delivery Rate 12/05 0550 98.4 93 18 120/68 95 Room Air 12/04 2238 98.6 94 20 117/68 94 Room Air 12/04 1600 98.7 110 20 111/58 92 Room Air on exam; aox3, nad. cv; s1,s2, rrr resp; clear abd; soft, nt, bs+ ext; no edema Laboratory Tests 12/05 0725 Chemistry Sodium (137 - 145 mmol/L) 137 Potassium (3.5 - 5.1 mmol/L) 4.6 Chloride (98 - 107 mmol/L) 101 Carbon Dioxide (22 - 30 mmol/L) 24 Anion Gap (5 - 16) 12 BUN (9 - 20 mg/dL) 36 H Creatinine (0.7 - 1.2 mg/dL) 5.2 *H Estimated GFR (>60 ml/min) 11 L BUN/Creatinine Ratio (7 - 25 %) 6.9 L A/P; 62 y/o M with pmh sig for prostate surgery(3years ago), bilateral ureteral stent which he did not follow with urologist, seizure disorder admitted with sob , generalized weakness, acute renal failure. Patient status post stent exchange and [address] Burch which is now discontinued and patient able to void. Still getting hemodialysis. Has an outpatient dialysis slot. After his dialysis on Saturday he will be discharged. Please confirm with computer mechanic about his discharge medications. Patient is also asking about going back to work status. This will also be confirmed with computer mechanic. Continue other current meds. Please start pharmacologic DVT px (hep sq)as plts have improved.
[2017-12-05 13:34] VITALS: BP 116/74
[2017-12-05 21:07] VITALS: BP 11/69; BP 111/69
[2017-12-06 06:41] VITALS: BP 118/62
--- NOTE | 2017-12-06 07:20 | PN- Housestaff ---
Subjective Follow-up For: CINDI with possible underlying CKD on HD Seizures, unknown etiology Electrolyte abnormalities - Hypocalcemia, hyperphosphatemia - resolved Anemia of chronic disease possibly 2/2 to CKD Subjective: No active complaints. Patient will have dialysis on sat. Review of Systems Constitutional: Reports: no symptoms. EENTM: Reports: no symptoms. Cardiovascular: Reports: no symptoms. Respiratory: Reports: no symptoms. Gastrointestinal: Reports: no symptoms. Genitourinary: Reports: no symptoms. Musculoskeletal: Reports: no symptoms. Skin: Reports: no symptoms. Neurological/Psychological: Reports: no symptoms. Hematologic/Endocrine: Reports: no symptoms. Immunologic/Allergic: Reports: no symptoms. Objective Last 24 Hrs of Vital Signs/I&O Vital Signs Date Time Temp Pulse Resp B/P B/P Pulse O2 O2 Flow FiO2 Mean Ox Delivery Rate 12/06 0641 98.2 84 18 118/62 95 Room Air 12/05 2107 98.4 101 20 111/69 94 Room Air 12/05 1600 102 12/05 1600 98.5 Intake & Output 12/06 1600 12/06 0800 12/06 0000 Intake Total 480 1080 Output Total 950 850 Balance -470 230 Intake, IV 0 0 Intake, Oral 480 1080 Number 0 0 Bowel Movements Output, Urine 950 850 Patient 207 lb Weight Weight Bed scale Measurement Method Physical Exam General Appearance: Alert, Oriented X3, Cooperative Skin: No Rashes, No Breakdown Cardiovascular: Regular Rate, Normal S1, Normal S2 Lungs: Clear to Auscultation, Normal Air Movement Abdomen: Normal Bowel Sounds, Soft, No Tenderness Extremities: No Clubbing, No Cyanosis, No Edema Current Medications: Current Medications Sig/James Start time Last Medication Dose Route Stop Time Status Admin Calcitriol 1 MCG TUES THURS SAT PRN 12/07 09 AC IV Calcitriol 1 MCG MoWeFr 11/22 1400 DC 12/04 IV 1742 Calcium Acetate 2,001 MG WM 11/22 1200 AC 12/06 PO 1203 Epoetin Lizandro 6,000 UNIT TUES THURS SAT PRN 12/07 09 AC IV Epoetin Lizandro 6,000 UNIT MoWeFr 11/22 1359 DC 12/04 IV 1741 Ferric Sodium 125 MG TUES THURS SAT 12/07 09 AC Gluconate Complex IV 12/17 0959 Sodium Chloride 100 ML Ferric Sodium 125 MG MoWeFr@0900 11/27 0900 DC 12/04 Gluconate Complex IV 12/13 0959 1740 Sodium Chloride 100 ML Heparin Sodium 5,000 UNIT Q8 12/05 1439 AC 12/06 (Porcine) SC 1255 Levetiracetam 250 MG BID 11/23 2100 AC 12/06 PO 0805 Omeprazole 40 MG DAILY AC 11/29 0822 AC 12/06 PO 0559 Last 24 Hrs of Lab/Jerrod Results Last 24 Hrs of Labs/Mics: Laboratory Tests 12/06/17 0743: Anion Gap 12, Estimated GFR 8 L, BUN/Creatinine Ratio 7.4 Assessment/Plan Assessment: 62-year-old male with significant past medical history of prostate surgery( 3years ago), bilateral ureteral stent? Etiology, seizure disorder not on antiepileptic presented for chief complaints of shortness of breath on exertion. #CINDI on CKD s/p HD tunneled catheter placement #Hypocalemia - 2/2 hyperphosphatemia and RF - resolved #Seizures - unclear etiology - stable #BL hydronephrosis s/p stent replacement and hall #AGMA - resolved #AMS - resolved Plan: Cr 7.3 today. Dialysis tomorrow. Patient will be discharged home after next dialysis on Saturday. Continue Leviracetam, Calcitriol, Calcium Acetate. Continue Epogen Continue Keppra Appreciate Nephro recommendations Appreciate Uro recommendations DVT ppx: ALPS Code: Full Problem List: 1. CINDI (acute kidney injury) 2. Hydronephrosis concurrent with and due to calculi of kidney and ureter Pain Ratin Pain Location: NA Pain Goal: Remain pain free Pain Plan: Pain Pathway Tomorrow's Labs & Rationales: BEP(CINDI on CKD, On Dialysis)
--- NOTE | 2017-12-06 08:12 | PN- Student ---
Subjective Subjective: This morning the patient had no complaints. He slept well, and is prepared to go home on Saturday following dialysis in hospital. He notes no problems with urination and describes the color as light yellow when he voids. He complains of no pain, nausea, vomiting, fever or chills. No recent seizures. Objective Objective: Physical Exam: General: Patient was found asleep, he awoke easily and was pleasant, alert and oriented, and well spoken. Skin: Warm and dry, no edema of lower extremity. Heart: Regular rate and rhythm, no murmurs, rubs, clicks, or gallops. Lungs: Chest expansion was even bilaterally, lung sounds clear bilaterally. Vital Signs Date Time Temp Pulse Resp B/P B/P Pulse O2 O2 Flow FiO2 Mean Ox Delivery Rate 12/06 0641 98.2 84 18 118/62 95 Room Air 12/05 2107 98.4 101 20 111/69 94 Room Air 12/05 1600 102 12/05 1600 98.5 12/05 1335 113 12/05 1334 98.5 113 20 116/74 94 Room Air Results Results: Laboratory Tests 12/06/17 0743: Anion Gap 12, Estimated GFR 8 L, BUN/Creatinine Ratio 7.4 12/05/17 0725: Anion Gap 12, Estimated GFR 11 L, BUN/Creatinine Ratio 6.9 L 12/04/17 1150: Anion Gap 14, Estimated GFR 7 L, BUN/Creatinine Ratio 7.4, CBC w Diff NO MAN DIFF REQ, RBC 2.83 L, MCV 91.6, MCH 30.0, MCHC 32.7 L, RDW 17.1 H, MPV 9.1, Gran % 71.0, Lymphocytes % 16.2 L, Monocytes % 8.6, Eosinophils % 3.0, Basophils % 1.2, Absolute Granulocytes 4.3, Absolute Lymphocytes 1.0 L, Absolute Monocytes 0.5, Absolute Eosinophils 0.2, Absolute Basophils 0.1 Assessment/Plan Assessment: Patient is a 62 year old male with medical history of BPH, bilateral uretal stent placement, seizures, and AKF with dialysis three years prior. We have been monitoring the patient's creatinine levels over the patient's time in the hospital. Labs today for creatinine are increasing, but this is consistent with his prior pattern - after dialysis, his creatinine levels are lower, and then tend to climb until his next session. It is unclear at this point if he will establish a new baseline. [place] any acute changes, it is reasonable to manage him with outpatient dialysis and re-evaluate with outpatient nephrology. He has been placed with an outpatient dialysis facility, and his first appointment will be next Saturday (12/10/17). His potassium has decreased to baseline since his dialysis treatment. His seizures appear to be well controlled with the Levetiracetam, as he has reported none recently. Plan: CINDI: Placement has been arranged for outpatient dialysis for Saturday (12/10/17) . He will continue to have dialysis inpatient on Saturday (12/07/17) and will be discharged after Saturday's dialysis baring any acute events. He will be instructed to follow up with nephrology for kidney evaluation. Travel Registered Nurse Nicu recommended current nephrology medications be continued at outpatient dialysis facility. Continue to monitor kidney function and electrolytes. Seizures: Continue Levetiracetan. Anemia: Continue Epoetin Lizandro and Ferric Sodium Gluconate. Calcium levels: Continue Calcitriol and Calcium Acetate.
[2017-12-06] MEDS ORDERED: LEVETIRACETAM250 M1 PO (08:21)
[2017-12-06] MEDS ORDERED: CALCIUM ACETAT667 M3 PO (08:21)
[2017-12-06] MEDS ORDERED: PROCRIT3000 UNIT/ IV (08:29)
[2017-12-06] MEDS ORDERED: CALCITRIOL1 MCG/1 ML IV (08:29)
[2017-12-06] MEDS ORDERED: OMEPRAZOLE20 M2 PO (08:29)
[2017-12-06] MEDS ORDERED: FERRLECIT62.5 MG/1 IV (08:29)
--- NOTE | 2017-12-06 11:35 | PN- Nephrology ---
Assessment/Plan Nephrology Assessment: CINDI - 2/2 obstructive uropathy. UOP picking up although with pre-HD SCr of 9.9, his kidneys are still not working. Given that his renal function has not recovered, it's his only medical issue keeping him in the hospital, and I honestly don't know if he'll end up recovering, I think it'd be reasonable to discharge him as an "CINDI" and monitor labs at outpatient dialysis - he has a spot at the [facility] on Saturday at 3pm - will need to get HD on Saturday prior to discharge. Should note that URR demonstrated that 3.5hrs for dialysis is adequate. ?CKD - Presented to [facility] in August 2015 with a Cr of 17 and moderate-severe b/l hydro on Renal US - discharged with chronic hall. Noncompliant with follow -up. Not clear exactly where renal function ended up but may have been significant. Anemia - a marker of length of renal injury. Is on an MIHAELA. Functional iron deficiency - has been started on IV iron. Hypocalcemia - Improved on current regimen. Suggestion: -No HD need today -Plan for HD on Saturday -HD bath going forward will be 2K/3Ca; EDW approx 94kg -Urology follow-up -Cont Ca based binders and calcitriol with dialysis Has a spot at the [facility] on Saturday at 3pm. From a renal standpoint, should be medically stable to leave after dialysis on Saturday. Please call [phone] with ?'s Subjective Subjective: Pt remains without complaints SCr uptrending 2075cc UOP Objective Vital Signs and I&Os Vital Signs Date Time Temp Pulse Resp B/P B/P Pulse O2 O2 Flow FiO2 Mean Ox Delivery Rate 12/06 0641 98.2 84 18 118/62 95 Room Air 12/05 2107 98.4 101 20 111/69 94 Room Air 12/05 1600 102 12/05 1600 98.5 12/05 1335 113 12/05 1334 98.5 113 20 116/74 94 Room Air Intake & Output 12/06 1600 12/06 0400 12/05 1600 12/05 0400 12/04 1600 12/04 0400 Intake Total 480 1080 1960 1200 720 Output Total 950 850 858 730 2419 500 Balance -330 893 5805 700 -980 -500 Intake, IV 0 0 0 0 Intake, Oral 480 1080 1960 1200 720 Number 0 0 0 0 0 Bowel Movements Output, Urine 950 850 805 549 0480 500 Patient 207 lb 207 lb 208 lb Weight Weight Bed scale Bed scale Measurement Method Physical Exam: Gen - NAD HEENT - supple CV - RRR, no m/r/g Chest - clear, no w/r/r Abd - soft, NTND Ext - warm, no edema Neuro - AOX3, grossly nonfocal Access - BILL cath Current Medications: Current Medications Sig/James Start time Last Medication Dose Route Stop Time Status Admin Calcitriol 1 MCG TUES THURS SAT PRN 12/07 0900 AC IV Calcitriol 1 MCG MoWeFr 11/22 1400 DC 12/04 IV 1742 Calcium Acetate 2,001 MG WM 11/22 1200 AC 12/06 PO 0804 Epoetin Lizandro 6,000 UNIT TUES THURS SAT PRN 12/07 0900 AC IV Epoetin Lizandro 6,000 UNIT MoWeFr 11/22 1359 DC 12/04 IV 1741 Ferric Sodium 125 MG TUES THURS SAT 12/07 0900 AC Gluconate Complex IV 12/17 0959 Sodium Chloride 100 ML Ferric Sodium 125 MG MoWeFr@0900 11/27 0900 DC 12/04 Gluconate Complex IV 12/13 0959 1740 Sodium Chloride 100 ML Heparin Sodium 5,000 UNIT Q8 12/05 1439 AC 12/06 (Porcine) SC 0559 Levetiracetam 250 MG BID 11/23 2100 AC 12/06 PO 0805 Omeprazole 40 MG DAILY AC 11/29 0822 AC 12/06 PO 0559 Results Pertinent Lab Results: Laboratory Tests 12/06 12/05 12/04 0743 0725 1150 Chemistry Sodium (137 - 145 mmol/L) 137 137 142 Potassium (3.5 - 5.1 mmol/L) 4.5 4.6 5.2 H Chloride (98 - 107 mmol/L) 101 101 104 Carbon Dioxide (22 - 30 mmol/L) 24 24 24 Anion Gap (5 - 16) 12 12 14 BUN (9 - 20 mg/dL) 54 H 36 H 59 H Creatinine (0.7 - 1.2 mg/dL) 7.3 *H 5.2 *H 8.0 *H Estimated GFR (>60 ml/min) 8 L 11 L 7 L BUN/Creatinine Ratio (7 - 25 %) 7.4 6.9 L 7.4 Hematology CBC w Diff NO MAN DIFF REQ WBC (4.8 - 10.8 /CUMM) 6.0 RBC (4.70 - 6.10 /CUMM) 2.83 L Hgb (14.0 - 18.0 G/DL) 8.5 L Hct (42 - 52 %) 25.9 L MCV (80.0 - 94.0 FL) 91.6 MCH (27.0 - 31.0 PG) 30.0 MCHC (33.0 - 37.0 G/DL) 32.7 L RDW (11.5 - 14.5 %) 17.1 H Plt Count (130 - 400 /CUMM) 162 MPV (7.4 - 10.4 FL) 9.1 Gran % (42.2 - 75.2 %) 71.0 Lymphocytes % (20.5 - 51.1 %) 16.2 L Monocytes % (1.7 - 9.3 %) 8.6 Eosinophils % (0 - 5 %) 3.0 Basophils % (0.0 - 2.0 %) 1.2 Absolute Granulocytes (1.4 - 6.5 /CUMM) 4.3 Absolute Lymphocytes (1.2 - 3.4 /CUMM) 1.0 L Absolute Monocytes (0.10 - 0.60 /CUMM) 0.5 Absolute Eosinophils (0.0 - 0.7 /CUMM) 0.2 Absolute Basophils (0.0 - 0.2 /CUMM) 0.1 Imaging/Other Studies: None new
--- NOTE | 2017-12-06 12:07 | PN- Att Addend ---
Attending Addendum Attending Brief Note Patient seen and examined, offers no complaints. Vital signs are stable. Exam is unchanged. Creatinine is still high. He has a slot for outpatient dialysis for Saturday. After tomorrow's dialysis patient will be discharged home. His calcitriol and iron infusions can be continued with the dialysis. He will be kept on Keppra upon discharge.
[2017-12-06 15:26] VITALS: BP 110/70
[2017-12-06 22:16] VITALS: BP 110/64
[2017-12-07 06:12] VITALS: BP 94/62
[2017-12-07 08:43] LABS: ABSOLUTE BASOPHIL COUNT 0.1 /CUMM (0.0-0.2); ABSOLUTE EOSINOPHIL COUNT 0.1 /CUMM (0.0-0.7); ABSOLUTE GRANULOCYTE CT 4.5 /CUMM (1.4-6.5); ABSOLUTE LYMPH COUNT 0.7 /CUMM (1.2-3.4); ABSOLUTE MONOCYTE COUNT 0.7 /CUMM (0.10-0.60); BASOPHIL % 0.9 % (0.0-2.0); EOSINOPHIL % 1.4 % (0-5); GRANULOCYTE % 73.8 % (42.2-75.2); HEMATOCRIT 26.1 % (42-52); MEAN CORPUSCULAR HGB 30.3 PG (27.0-31.0); MEAN CORPUSCULAR HGB CONC 33.2 G/DL (33.0-37.0); MEAN CORPUSCULAR VOLUME 91.3 FL (80.0-94.0); MEAN PLATELET VOLUME 8.5 FL (7.4-10.4); PLATELET COUNT 155 /CUMM (130-400); RBC DISTRIBUTION WIDTH 17.7 % (11.5-14.5); RED BLOOD CELL CT 2.86 /CUMM (4.70-6.10)
--- NOTE | 2017-12-07 09:37 | PN- Nephrology ---
Assessment/Plan Nephrology Assessment: Stable from dialysis standpoint. Suggestion: Plan for discharge later today with f/u dialsylsi at outpatient [facility] on Saturday. Subjective Subjective: Patient seen on dialysis, tolerating well. Good urine output with Folely out. Objective Vital Signs and I&Os Vital Signs Date Time Temp Pulse Resp B/P B/P Pulse O2 O2 Flow FiO2 Mean Ox Delivery Rate 12/08 611 98.9 103 20 94/62 95 12/06 2216 98.9 110 18 110/64 95 Room Air 12/06 1615 99.5 109 12/06 1526 100.0 127 20 110/70 94 Room Air Intake & Output 12/07 1600 12/07 0400 12/06 1600 12/06 0400 12/05 1600 12/05 0400 Intake Total 600 1280 1080 1960 1200 Output Total 800 643 8873 884 878 1170 Balance -975 -150 -957 173 7473 200 Intake, IV 0 0 0 0 Intake, Oral 600 1280 1080 1960 1200 Number 0 0 0 0 Bowel Movements Output, Urine 087 569 6899 181 824 0223 Patient 207 lb 207 lb 207 lb Weight Weight Bed scale Bed scale Bed scale Measurement Method Physical Exam: NAD VS as above. Lungs: clear CV: no rub Abd: nontender Exts: no edema Neuro: A&O Current Medications: Current Medications Sig/James Start time Last Medication Dose Route Stop Time Status Admin Calcitriol 1 MCG TUES THURS SAT PRN 12/07 0900 AC IV Calcium Acetate 2,001 MG WM 11/22 1200 AC 12/06 PO 1642 Epoetin Lizandro 6,000 UNIT TUES THURS SAT PRN 12/07 0900 AC IV Ferric Sodium 125 MG TUES THURS SAT 12/07 0900 AC Gluconate Complex IV 12/17 0959 Sodium Chloride 100 ML Heparin Sodium 5,000 UNIT Q8 12/05 1439 AC 12/07 (Porcine) SC 0558 Levetiracetam 250 MG BID 11/23 2100 AC 12/06 PO 2038 Omeprazole 40 MG DAILY AC 11/29 0822 AC 12/07 PO 0559 Results Pertinent Lab Results: Laboratory Tests 12/07 12/07 12/06 12/05 0730 0720 0743 0725 Chemistry Sodium (137 - 145 mmol/L) 138 137 137 Potassium (3.5 - 5.1 mmol/L) 4.3 4.5 4.6 Chloride (98 - 107 mmol/L) 101 101 101 Carbon Dioxide (22 - 30 mmol/L) 20 L 24 24 Anion Gap (5 - 16) 16 12 12 BUN (9 - 20 mg/dL) 69 H 54 H 36 H Creatinine (0.7 - 1.2 mg/dL) 9.0 *H 7.3 *H 5.2 *H Estimated GFR (>60 ml/min) 6 L 8 L 11 L BUN/Creatinine Ratio (7 - 25 %) 7.7 7.4 6.9 L Hematology CBC w Diff NO MAN DIFF REQ WBC (4.8 - 10.8 /CUMM) 6.0 RBC (4.70 - 6.10 /CUMM) 2.86 L Hgb (14.0 - 18.0 G/DL) 8.6 L Hct (42 - 52 %) 26.1 L MCV (80.0 - 94.0 FL) 91.3 MCH (27.0 - 31.0 PG) 30.3 MCHC (33.0 - 37.0 G/DL) 33.2 RDW (11.5 - 14.5 %) 17.7 H Plt Count (130 - 400 /CUMM) 155 MPV (7.4 - 10.4 FL) 8.5 Gran % (42.2 - 75.2 %) 73.8 Lymphocytes % (20.5 - 51.1 %) 11.8 L Monocytes % (1.7 - 9.3 %) 12.1 H Eosinophils % (0 - 5 %) 1.4 Basophils % (0.0 - 2.0 %) 0.9 Absolute Granulocytes (1.4 - 6.5 /CUMM) 4.5 Absolute Lymphocytes (1.2 - 3.4 /CUMM) 0.7 L Absolute Monocytes (0.10 - 0.60 /CUMM) 0.7 H Absolute Eosinophils (0.0 - 0.7 /CUMM) 0.1 Absolute Basophils (0.0 - 0.2 /CUMM) 0.1 06/20 1150 Chemistry Sodium (137 - 145 mmol/L) 142 Potassium (3.5 - 5.1 mmol/L) 5.2 H Chloride (98 - 107 mmol/L) 104 Carbon Dioxide (22 - 30 mmol/L) 24 Anion Gap (5 - 16) 14 BUN (9 - 20 mg/dL) 59 H Creatinine (0.7 - 1.2 mg/dL) 8.0 *H Estimated GFR (>60 ml/min) 7 L BUN/Creatinine Ratio (7 - 25 %) 7.4 Hematology CBC w Diff NO MAN DIFF REQ WBC (4.8 - 10.8 /CUMM) 6.0 RBC (4.70 - 6.10 /CUMM) 2.83 L Hgb (14.0 - 18.0 G/DL) 8.5 L Hct (42 - 52 %) 25.9 L MCV (80.0 - 94.0 FL) 91.6 MCH (27.0 - 31.0 PG) 30.0 MCHC (33.0 - 37.0 G/DL) 32.7 L RDW (11.5 - 14.5 %) 17.1 H Plt Count (130 - 400 /CUMM) 162 MPV (7.4 - 10.4 FL) 9.1 Gran % (42.2 - 75.2 %) 71.0 Lymphocytes % (20.5 - 51.1 %) 16.2 L Monocytes % (1.7 - 9.3 %) 8.6 Eosinophils % (0 - 5 %) 3.0 Basophils % (0.0 - 2.0 %) 1.2 Absolute Granulocytes (1.4 - 6.5 /CUMM) 4.3 Absolute Lymphocytes (1.2 - 3.4 /CUMM) 1.0 L Absolute Monocytes (0.10 - 0.60 /CUMM) 0.5 Absolute Eosinophils (0.0 - 0.7 /CUMM) 0.2 Absolute Basophils (0.0 - 0.2 /CUMM) 0.1
--- NOTE | 2017-12-07 12:06 | PN- Housestaff ---
Se THOMAS,[facility] 12/07/17 1205: Subjective Follow-up For: CINDI with possible underlying CKD on HD Seizures, unknown etiology Electrolyte abnormalities - Hypocalcemia, hyperphosphatemia - resolved Anemia of chronic disease possibly 2/2 to CKD Subjective: Patient denies any new complaints. Review of Systems Constitutional: Reports: no symptoms. EENTM: Reports: no symptoms. Cardiovascular: Reports: no symptoms. Respiratory: Reports: no symptoms. Gastrointestinal: Reports: no symptoms. Genitourinary: Reports: no symptoms. Musculoskeletal: Reports: no symptoms. Skin: Reports: no symptoms. Neurological/Psychological: Reports: no symptoms. Hematologic/Endocrine: Reports: no symptoms. Immunologic/Allergic: Reports: no symptoms. Objective Last 24 Hrs of Vital Signs/I&O Vital Signs Date Time Temp Pulse Resp B/P B/P Pulse O2 O2 Flow FiO2 Mean Ox Delivery Rate 12/07 1348 98.6 126 20 120/78 95 Room Air 12/07 0612 98.9 103 20 94/62 95 12/06 2216 98.9 110 18 110/64 95 Room Air 12/06 1615 99.5 109 12/06 1526 100.0 127 20 110/70 94 Room Air Intake & Output 12/07 1600 12/07 0800 12/07 0000 Intake Total 480 600 Output Total 400 975 750 Balance 80 -975 -150 Intake, Oral 480 600 Number 0 Bowel Movements Output, Urine 400 975 750 Patient 207 lb Weight Weight Bed scale Measurement Method Physical Exam General Appearance: Alert, Oriented X3, Cooperative, No Acute Distress Skin: No Rashes, No Breakdown Cardiovascular: Regular Rate, Normal S1, Normal S2 Lungs: Normal Air Movement Abdomen: Normal Bowel Sounds, Soft, No Tenderness Extremities: No Clubbing, No Cyanosis, No Edema Current Medications: Current Medications Sig/James Start time Last Medication Dose Route Stop Time Status Admin Calcitriol 1 MCG TUES THURS SAT PRN 12/07 0900 DCD IV Calcium Acetate 2,001 MG WM 11/22 1200 DCD 12/07 PO 1247 Epoetin Lizandro 6,000 UNIT TUES THURS SAT PRN 12/07 0900 DCD IV Ferric Sodium 125 MG TUES THURS SAT 12/07 0900 DCD 12/07 Gluconate Complex IV 12/17 0959 1247 Sodium Chloride 100 ML Heparin Sodium 5,000 UNIT Q8 06/21 1439 DCD 12/07 (Porcine) SC 1251 Levetiracetam 250 MG BID 11/23 2100 DCD 12/07 PO 1248 Omeprazole 40 MG DAILY AC 11/29 0822 DCD 12/07 PO 0559 Last 24 Hrs of Lab/Jerrod Results Last 24 Hrs of Labs/Mics: Laboratory Tests 12/07/17 0730: CBC w Diff NO MAN DIFF REQ, RBC 2.86 L, MCV 91.3, MCH 30.3, MCHC 33.2, RDW 17.7 H, MPV 8.5, Gran % 73.8, Lymphocytes % 11.8 L, Monocytes % 12.1 H, Eosinophils % 1.4, Basophils % 0.9, Absolute Granulocytes 4.5, Absolute Lymphocytes 0.7 L, Absolute Monocytes 0.7 H, Absolute Eosinophils 0.1, Absolute Basophils 0.1 12/07/17 0720: Anion Gap 16, Estimated GFR 6 L, BUN/Creatinine Ratio 7.7 Assessment/Plan Assessment: 62-year-old male with significant past medical history of prostate surgery( 3years ago), bilateral ureteral stent? Etiology, seizure disorder not on antiepileptic presented for chief complaints of shortness of breath on exertion. #CINDI on CKD s/p HD tunneled catheter placement #Hypocalemia - 2/2 hyperphosphatemia and RF - resolved #Seizures - unclear etiology - stable #BL hydronephrosis s/p stent replacement and hall #AGMA - resolved #AMS - resolved Plan: Cr 9.0. today. Dialysis today. Patient will be discharged home after next dialysis to continue dialysis as an outpatient. Continue Leviracetam, Calcitriol, Calcium Acetate. Continue Epogen Continue Keppra Appreciate Nephro recommendations Appreciate Uro recommendations DVT ppx: ALPS Code: Full Problem List: 1. CINDI (acute kidney injury) 2. Hydronephrosis concurrent with and due to calculi of kidney and ureter Pain Ratin Pain Location: None Pain Goal: Remain pain free Pain Plan: Pain pathway Tomorrow's Labs & Rationales: None Ana Brady MD 12/07/17 1328: Attending MD Review Statement Attending Statement Attending MD Statement: examined this patient, discuss w/resident/PA/GALLERY OR MUSEUM CURATOR, agreed w/resident/PA/GALLERY OR MUSEUM CURATOR, reviewed EMR data (avail), discussed with nursing, discussed with case mgmt, amended to note Attending Assessment/Plan: Patient seen and examined, offers no complaints. He came back from dialysis. Doing well overall. Has a dialysis slot at [facility] in [place] for Saturday. Had discussed with nephrology before and patient is medically stable for discharge to resume his dialysis on Saturday. Transport has been arranged by social staff worker and case management. Patient will be continued on Keppra for seizures. As discussed, his are patent infusion and calcitriol will be continued at the dialysis. He'll be continued on PhosLo. Patient to follow-up with primary care doctor and group fitness manager as an outpatient.
[2017-12-07 13:48] VITALS: BP 120/78
[2017-12-07] MEDS ORDERED: OMEPRAZOLE20 M2 PO (14:37)
[2017-12-07] MEDS ORDERED: LEVETIRACETAM250 M1 PO (14:37)
[2017-12-07] MEDS ORDERED: CALCIUM ACETAT667 M3 PO (14:37)
== END 2017-12-07 14:30 | DRG 466 ==
LOC: ERH 06:25 → CRI 09:53 → ERHI 09:53 → 2NB 09:53 → ENRESERV 10:16 → ENTRNSPT 10:42 → EDTRNSPT 10:48 → EDTRNSPTSTS 10:48 → 2NA 10:54 → CMPTRNSPT 11:24 → CRI 14:39 → ENTRNSPT 18:53 → EDTRNSPTSTS 19:01 → EDTRNSPT 19:01 → CMPTRNSPT 19:19 → CRI 11-22 08:52 → ENTRNSPT 11-25 14:49 → EDTRNSPT 11-25 15:25 → EDTRNSPTSTS 11-25 15:25 → 2NB 11-25 15:41 → CMPTRNSPT 11-25 15:46 → 2NB 11-25 21:11 → ENPENDDIS 12-07 11:51 → 2NB 12-07 14:30
PROVIDERS: Emergency Medicine; Internal Medicine; Internal Medicine Adolescent Medicine; Internal Medicine Nephrology; Student in an Organized Health Care Education/Training Program
PROC: BT14ZZZ Fluoroscopy of Kidneys, Ureters and Bladder (ICD-10-PCS; principal; 2017-11-21)
PROC: 0T788DZ Dilation of Bilateral Ureters with Intraluminal Device, Via Natural or Artificial Opening Endoscopic (ICD-10-PCS; principal; 2017-11-21)
PROC: 0TP98DZ Removal of Intraluminal Device from Ureter, Via Natural or Artificial Opening Endoscopic (ICD-10-PCS; 2017-11-21)
PROC: 06H033Z Insertion of Infusion Device into Inferior Vena Cava, Percutaneous Approach (ICD-10-PCS; 2017-11-22)
PROC: 5A1D70Z Performance of Urinary Filtration, Intermittent, Less than 6 Hours Per Day (ICD-10-PCS; 2017-11-22)
PROC: B5191ZA Fluoroscopy of Inferior Vena Cava using Low Osmolar Contrast, Guidance (ICD-10-PCS; 2017-11-22)
DX: T83.193A Other mechanical complication of other urinary stent, initial encounter (principal); N17.9 Acute kidney failure, unspecified; E87.2 Acidosis; E83.39 Other disorders of phosphorus metabolism; E87.5 Hyperkalemia; N13.30 Unspecified hydronephrosis; Y82.9 Unspecified medical devices associated with adverse incidents; D62 Acute posthemorrhagic anemia; N18.5 Chronic kidney disease, stage 5; N40.1 Benign prostatic hyperplasia with lower urinary tract symptoms; R33.8 Other retention of urine; F17.210 Nicotine dependence, cigarettes, uncomplicated; Z72.89 Other problems related to lifestyle; F19.90 Other psychoactive substance use, unspecified, uncomplicated; N32.89 Other specified disorders of bladder; G93.41 Metabolic encephalopathy; G40.909 Epilepsy, unspecified, not intractable, without status epilepticus; D64.9 Anemia, unspecified; N13.2 Hydronephrosis with renal and ureteral calculous obstruction; B96.1 Klebsiella pneumoniae [K. pneumoniae] as the cause of diseases classified elsewhere; N39.0 Urinary tract infection, site not specified
CPT/HCPCS: 04007; 2NBSP; 84133; 84300; CCU; 36415; 36592; 71046; 74018; 74176; 76775; 77001; 80307; 81001; 82355; 82436; 82570; 82595; 86803; 86920; 87086; 93005; 93010; 95816; 96360; C1769; C2617; J0610; J0636; J0696; J0885; J1644; J1815; J1953; J2001; J2405; J3250; J3490; J7060; P9016

== ENCOUNTER 2018-01-28 19:06 | Emergency (ER) | payer OTHER ==
[~2018-01-28] VITALS: Ht 188 cm; Wt 99.8 kg
[~2018-01-28 19:06] MED LIST: CALCITRIOL1 MCG/1 ML IV; CALCIUM ACETAT667 M3 PO; FERRLECIT62.5 MG/1 IV; LEVETIRACETAM250 M1 PO; OMEPRAZOLE20 M2 PO; PROCRIT3000 UNIT/ IV
--- NOTE | 2018-01-28 19:43 | ED GENERAL ADULT ---
History of Present Illness General Chief Complaint: Seizure Stated Complaint: BIBA WITH POSSIBLE SEIZURE Source: patient Exam Limitations: no limitations Vital Signs & Intake/Output Vital Signs & Intake/Output Vital Signs Date Time Temp Pulse Resp B/P B/P Pulse O2 O2 Flow FiO2 Mean Ox Delivery Rate 01/283 98.2 104 18 93/71 96 01/280 96 Room Air 01/287 97.5 76 18 144/64 99 Allergies Coded Allergies: No Known Allergies (11/21/17) Reconcile Medications Calcitriol 1 MCG/ML AMPUL 1 AMP IV TUES THURS SAT CKD Calcium Acetate 667 MG CAPSULE 2 CAP PO TID CKD . Epoetin Lizandro (Procrit) 3,000 UNIT/ML VIAL 6,000 UNIT IV TUES THURS SAT CKD Levetiracetam 250 MG TABLET 1 TAB PO BID SEIZURE . Omeprazole 20 MG CAPSULE.DR 1 TAB PO DAILY AC GERD . Sodium Ferric Gluconat/Sucrose (Ferrlecit 62.5 MG/5 Ml Vial) 62.5 MG/5 ML VIAL 125 MG IV TUES THURS SAT ANEMIA,CKD Triage Note: RECEIVED 63 YO MALE BIBA FROM [facility] WITH REPORT OF 15 TO 30 SECOND EPISODE OF TREMORS DURING DIALYSIS. PT WAS WIDE AWAKE WHEN IT HAPPENED. PT REMEMBERS ENTIRE EPISODE. NO POST ICTAL STATE. ACCORDING TO REPORT, DIALYSIS TOOK OFF 3 LITERS OF FLUID. PT AWAKE ALERT AND ORIENTED. OFFERING NO COMPLAINTS AT THIS TIME. PT WITH HX OF CINDI ON DIALYSIS AND SEIZURES. Triage Nurses Notes Reviewed? yes HPI: This is a 63-year-old male history of renal disease on hemodialysis, epilepsy, presenting to the emergency department with an episode of shakiness. Patient states that he had a full course of hemodialysis today, had 3 L of fluid removed. Following this, the patient went to stand up and felt "shaky "patient sat back down and EMS was called. The staff was concerned that he may have had a seizure, although the patient did not lose consciousness at any point and remembers the entire event with no postictal period, tongue biting, incontinence , or other concerning or consistent symptoms. He did not fall and denies any recent trauma or illness. He has been compliant with all medications and has been regularly going to dialysis. He states that he has had good urine output as well with no dysuria or frequency. He denies any toxic ingestions. (Garry Perrin MD) Past History Travel History Traveled to [place] past 21 day No Medical History Any Pertinent Medical History? see below for history Neurological: seizure EENT: NONE Cardiovascular: NONE Respiratory: NONE Gastrointestinal: NONE Hepatic: NONE Renal: chronic kidney disease Musculoskeletal: NONE Psychiatric: NONE Endocrine: NONE Blood Disorders: NONE Cancer(s): NONE [employer]/Reproductive: NONE History of MRSA: No History of VRE: No History of CDIFF: No Surgical History Surgical History: non-contributory Psychosocial History What is your primary language Gibraltarian Tobacco Use: Never used Family History Family History, If Any: MOTHER Relation not specified for: FH: lung cancer Hx Contributory? No (Garry Perrin MD) Review of Systems Review of Systems Constitutional: Reports: no symptoms. EENTM: Reports: no symptoms. Respiratory: Reports: no symptoms. Cardiovascular: Reports: no symptoms. GI: Reports: no symptoms. Genitourinary: Reports: no symptoms. Musculoskeletal: Reports: no symptoms. Skin: Reports: no symptoms. Neurological/Psychological: Reports: see HPI. Hematologic/Endocrine: Reports: no symptoms. Immunologic/Allergic: Reports: no symptoms. (Garry Perrin MD) Physical Exam Physical Exam General Appearance: well developed/nourished, no apparent distress, alert, comfortable Head: atraumatic, normal appearance Comments: Well-appearing middle-aged male in no acute distress. Alert and oriented 4. HEENT is within normal limits. No JVD trachea midline negative cardiopulmonary exam, benign abdominal exam, patient intact neurologically with normal tandem baseline gait, no change in coordination or strength in any extremity, intact cranial nerves II through XII. Exam otherwise atraumatic. Core Measures ACS in differential dx? No CVA/TIA Diagnosis: No Sepsis Present: No Sepsis Focused Exam Completed? No (Garry Perrin MD) Progress Differential Diagnoses I considered the following diagnoses in my evaluation of the patient: Could be resolved episode of orthostasis following aggressive hemodialysis session. Lower concern for acute metabolic derangement, seizure disorder, TIA, or acute infectious process in this patient given exam, history, and presentation. Plan of Care: Orders Procedure Date/time Status Renal Dialysis Diet 01/29 B Active PHOSPHORUS 01/28 1934 Complete MAGNESIUM 01/28 1934 Complete LACTIC ACID 01/28 1934 Complete COMPREHENSIVE METABOLIC PANEL 01/28 1934 Complete CBC WITHOUT DIFFERENTIAL 01/28 1934 Complete EKG 01/28 1934 Active Laboratory Tests 01/28/182029: Lactic Acid Cancelled 01/28/182029: Anion Gap 17 H, Estimated GFR 10 L, BUN/Creatinine Ratio 9.3, Glucose 100 H, Lactic Acid 1.4, Calcium 8.8, Phosphorus 4.7 H, Magnesium 1.9, Total Bilirubin 0.7, AST 25, ALT 19 L, Alkaline Phosphatase 107, Total Protein 9.4 H, Albumin 5.2 H, Globulin 4.2, Albumin/Globulin Ratio 1.2, CBC w Diff NO MAN DIFF REQ, RBC 4.15 L, MCV 94.8 H, MCH 31.1 H, MCHC 32.8 L, RDW 17.4 H, MPV 7.4, Gran % 80.6 H, Lymphocytes % 10.2 L, Monocytes % 5.2, Eosinophils % 3.4, Basophils % 0.6, Absolute Granulocytes 6.5, Absolute Lymphocytes 0.8 L, Absolute Monocytes 0.4, Absolute Eosinophils 0.3, Absolute Basophils 0.1 Plan for labs including calcium magnesium and phosphorus, lactic acid 1, EKG, reassessment, p.o. challenge, likely discharge home. Patient remains well appearing on reassessment; labs are reassuring and inconsistent w seizure. patient has been compliant with all medications at home. He is d/c home w plan to f/u w outpatient provider; return precautions provided. Initial ED EKG: normal axis, no ST T wave changes (Garry Perrin MD) Departure Departure Time of Disposition: 2028 Disposition: HOME OR SELF CARE Condition: Stable Clinical Impression Primary Impression: Dialysis complication Referrals: Daisy Villa MD (PCP/Family) Additional Instructions: Thank you for coming to [facility] this evening. Your labs were reassuring and you are on exam. It is unclear what the shaking episode was due to, but it could have been from the amount of fluid that was taken off. I recommend you follow-up with your doctor tomorrow for reassessment. Please keep your regularly scheduled dialysis appointment as we discussed. Please return to the emergency department if you develop any new or worsening symptoms. Departure Forms: Customer Survey General Discharge Information (Garry Perrin MD) Resident Co-Sign Statement Statement: ED Attending supervision documentation- [] I saw and evaluated the patient. I have also reviewed all the pertinent lab results and diagnostic results. I agree with the findings and the plan of care as documented in the Resident's documentation. [X] I have reviewed the ED Record and agree with the Resident's documentation. [] Additions or exceptions (if any) to the Resident's note and plan are summarized below: [] (Partha TOTH,Aidan Bernstein) Critical Care Note Critical Care Note Critical Care Time: non-applicable (Aydin THOMAS,Garry)
[2018-01-28 20:41] LABS: ABSOLUTE BASOPHIL COUNT 0.1 /CUMM (0.0-0.2); ABSOLUTE EOSINOPHIL COUNT 0.3 /CUMM (0.0-0.7); ABSOLUTE GRANULOCYTE CT 6.5 /CUMM (1.4-6.5); ABSOLUTE LYMPH COUNT 0.8 /CUMM (1.2-3.4); ABSOLUTE MONOCYTE COUNT 0.4 /CUMM (0.10-0.60); BASOPHIL % 0.6 % (0.0-2.0); EOSINOPHIL % 3.4 % (0-5); GRANULOCYTE % 80.6 % (42.2-75.2); HEMATOCRIT 39.3 % (42-52); MEAN CORPUSCULAR HGB 31.1 PG (27.0-31.0); MEAN CORPUSCULAR HGB CONC 32.8 G/DL (33.0-37.0); MEAN CORPUSCULAR VOLUME 94.8 FL (80.0-94.0); MEAN PLATELET VOLUME 7.4 FL (7.4-10.4); PLATELET COUNT 183 /CUMM (130-400); RBC DISTRIBUTION WIDTH 17.4 % (11.5-14.5); RED BLOOD CELL CT 4.15 /CUMM (4.70-6.10); WHITE BLOOD CELL COUNT 8.1 /CUMM (4.8-10.8)
[2018-01-28 22:33] VITALS: BP 93/71
== END 2018-01-28 23:00 ==
LOC: ERH 19:06
PROVIDERS: Student in an Organized Health Care Education/Training Program
DX: R25.1 Tremor, unspecified (principal)
CPT/HCPCS: 93005; 93010